=== PATIENT | female | born 1995 | race Asian ===

== ENCOUNTER 2016-12-12 06:52 | Day surgery (SDC) | payer OTHER ==
--- NOTE | 2016-12-04 15:12 | GHP ---
[f rep st] PREOP HISTORY AND PHYSICAL DATE OF ADMISSION: 12/12/2016 ADMITTING DIAGNOSIS: 1. Pelvic pain. 2. Dysmenorrhea. HISTORY OF PRESENT ILLNESS: The patient is a 21-year-old, 0, who presents with an unknown last menstrual period and a long history of pelvic pain and dysmenorrhea. Cycles are regular but heavy, and usually lasts for 7 days. She experiences severe cramping with her menses as well as bilateral lower pelvic pain intermittently. The pain is described as sharp, constant for 1 -2 days. Does not occur on a daily basis. Pain is localized with no radiation. She denies any exacerbating factors. Notes relief with medical marijuana. She denies any urinary or bowel complaints. The patient has tried Depo in the past for a year to see if it would help and she continued to have heavy bleeding and cramping. The patient then had Cara IUD placed secondary to bleeding and pain March 20, 2016. She still had bleeding regularly, but noticed a slight improvement in her cramping. The patient then had Nexplanon placed October 2016 to help with her symptoms. The patient had no pain for a week and then the pain started again. She still has the Cara IUD in place but would like it removed. The patient was told she has endometriosis and would like to have surgery done to see if her pain is caused by endometriosis. The patient does desire surgery at this time as well as IUD removal. PAST OB HISTORY: The patient is nulliparous. 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 Cycles are regular, every 28-30 days. She bleeds or 5-7 days. Cycles are very heavy and severe cramping. No previous Pap smear noted. Recent GC/chlamydia cultures are negative, October of 2016. PAST MEDICAL HISTORY: Chronic pelvic pain. PAST SURGICAL HISTORY: Unremarkable. MEDICATIONS: Include Cara and Nexplanon ALLERGIES: Amoxicillin and penicillin. FAMILY HISTORY: Mother with hypertension and thyroid disease. Maternal aunt with breast cancer, diagnosed in 40s. SOCIAL HISTORY: The patient is single. She is a student at . She denies alcohol, drugs, or illicit drug use. She does have a prescription for medical marijuana. REVIEW OF SYSTEMS: 10-point review of systems negative. Pertinent positives noted in HPI above. LABS: None. STUDIES: A pelvic ultrasound was done showing the IUD is visualized within the uterus in the proper position, bilateral ovaries appear normal. PHYSICAL EXAMINATION: VITAL SIGNS: On admission, vital signs are stable. Patient is afebrile. GENERAL: Well-nourished well-developed female, alert and oriented x3. No apparent distress. CARDIOVASCULAR: Regular rate and rhythm. LUNGS: Clear to auscultation bilaterally. ABDOMEN: Soft, nondistended, nontender. Active bowel sounds. PELVIC: Bimanual exam reveals normal-sized, nontender, mobile uterus and normal adnexa. IUD strings were felt. EXTREMITIES : Normal to inspection without calf tenderness or edema. ASSESSMENT: The patient is a 21-year-old, nulliparous, with a long history of pelvic pain and dysmenorrhea. PLAN: 1. We discussed surgery, diagnostic laparoscopy, its limitations, n.p.o. status , and postop recovery and expectations. 2. Surgical consents were signed. We discussed risks, benefits, alternatives, including, but not limited to, bleeding, infection, damage to surrounding organs. Patient understands all risks and wants to proceed with surgery at this time. 3. Antibiotics personal financial counselor to OR. 4. SCDs for DVT prophylaxis. /[id number]/MODL MTDD
[2016-12-12] MEDS ORDERED: CLINDAMYCIN 900 MG/DEXTROSE 50 ML IV ONE (07:26)
[2016-12-12] MEDS ORDERED: LR 1,000 ML IV SCH (07:26)
[2016-12-12] MEDS ORDERED: LR 1,000 ML IV ONE (07:28)
[2016-12-12] MEDS ORDERED: LIDOCAINE 1% 2 ML INJ ID PRN (07:28)
[2016-12-12] MEDS ORDERED: MIDAZOLAM 2 MG/2 ML VIAL IVP ONE (07:52)
--- NOTE | 2016-12-12 07:52 | PDANEPAE ---
ANE History of Present Illness pelvic pain ANE Past Medical History - Cardiovascular History Hx Hypertension: No Hx Arrhythmias: No Hx Chest Pain: No Hx Coronary Artery / Peripheral Vascular Disease: No Hx CHF / Valvular Disease: No Hx Palpitations: No - Pulmonary History Hx COPD: No Hx Asthma/Reactive Airway Disease: No Hx Recent Upper Respiratory Infection: No Hx Oxygen in Use at Home: No Hx Sleep Apnea: No Sleep Apnea Screening Result - Last Documented: Negative - Neurologic History Hx Cerebrovascular Accident: No Hx Seizures: No Hx Dementia: No - Endocrine History Hx Diabetes: No - Renal History Hx Renal Disorders: No - Liver History Hx Hepatic Disorders: No - Neurological & Psychiatric Hx Hx Neurological and Psychiatric Disorders: No - Cancer History Hx Cancer: No - Congenital Disorder History Hx Congenital Disorders: No - GI History Hx Gastrointestinal Disorders: No - Other Health History Other Health History: pelvic pain, painful menses. Uses medical marijuana.Retained IUD. Endometriosis. - Chronic Pain History Chronic Pain: Yes (pelvic) - Surgical History Prior Surgeries: wisdom teeth at oral surgeon's office. ANE Review of Systems Review of systems is: negative - Exercise capacity METS (RN): 4 METS ANE Patient History - Allergies Allergies/Adverse Reactions: amoxicillin Allergy (Verified 11/27/16 15:28) Other-Enter Comments Penicillins Allergy (Verified 11/27/16 15:28) Other-Enter Comments - Home Medications Home medications: home medication list seen and reviewed Home Medications: NK [No Known Home Meds] 12/06/15 [Last Taken Unknown] - NPO status NPO Since - Liquids (Date): 12/11/16 NPO Since - Liquids (Time): 23:00 NPO Since - Solids (Date): 12/11/16 NPO Since - Solids (Time): 22:00 - Anes Hx Anes Hx: post operative nausea, slow to awaken from anesthesia - Smoking Hx Smoking Status: Never smoked - Family Anes Hx Family Hx Anesthesia Complications: not aware ANE Labs/Vital Signs - Vital Signs Blood Pressure: 109/69 Heart Rate: 92 Respiratory Rate: 16 O2 Sat (%): 96 Height: 152.4 cm Weight: 45.359 kg ANE Physical Exam - Airway Neck exam: FROM Mallampati Score: Class 1 Mouth exam: normal dental/mouth exam - Pulmonary Pulmonary: no respiratory distress - Cardiovascular Cardiovascular: regular rate and rhythym - ASA Status ASA Status: I ANE Anesthesia Plan Anesthesia Plan: general endotracheal anesthesia
[2016-12-12] MEDS ORDERED: SCOPOLAMINE HYDROBROMIDE 1.5 MG PATCH TD ONE ×2 (07:53→08:04)
[2016-12-12] MEDS ORDERED: fentaNYL 100 MCG/2 ML INJ ONE ×3 (07:57→09:36)
[2016-12-12] MEDS ORDERED: PROPOFOL 200 MG/20 ML VIAL ONE (07:57)
[2016-12-12] MEDS ORDERED: ROCURONIUM 50 MG/5 ML VIAL ONE (07:58)
[2016-12-12] MEDS ORDERED: DEXAMETHASONE 4 MG/ML VIAL ONE (07:58)
[2016-12-12] MEDS ORDERED: SUGAMMADEX SODIUM 200 MG/2 ML VIAL IVP ONE (07:58)
[2016-12-12] MEDS ORDERED: ONDANSETRON 4 MG/2 ML VIAL ONE (07:58)
[2016-12-12] MEDS ORDERED: LIDOCAINE 2% 5 ML SDV ONE (07:58)
[2016-12-12] MEDS ORDERED: BUPIVACAINE/EPI 0.25% 30 ML SDV ONE (08:04)
[2016-12-12] MEDS ORDERED: SILVER NITRATE APPLICATOR 1 APPL TP ONE (08:05)
[2016-12-12] MEDS ORDERED: LIDOCAINE 2% JELLY 5 ML TUBE ONE (08:08)
--- NOTE | 2016-12-12 08:20 | PDHPUP ---
History & Physical Update H&P update statement: This history and physical update is based on an assessment of the patient which was completed after admission or registration (within 24 hours), but prior to the surgery/procedure. H&P update: H&P reviewed & patient examined, no change in patient's condition since H&P completed
[2016-12-12] MEDS ORDERED: ONDANSETRON 4 MG/2 ML VIAL IVP PRN (09:04)
[2016-12-12] MEDS ORDERED: OXYCODONE/APAP 5/325 TAB PO PRN (09:04)
[2016-12-12] MEDS ORDERED: HYDROmorphONE/DILAUDID 1 MG/ML SYR IVP PRN (09:04)
[2016-12-12] MEDS ORDERED: PROMETHAZINE HCL 25 MG/ML INJ IVP PRN (09:04)
[2016-12-12] MEDS ORDERED: ACETAMINOPHEN 500 MG TAB PO PRN (09:04)
[2016-12-12] MEDS ORDERED: fentaNYL 100 MCG/2 ML INJ IVP PRN (09:04)
[2016-12-12] MEDS ORDERED: NALOXONE HCL 0.4 MG/ML INJ IVP PRN (09:04)
--- NOTE | 2016-12-12 09:17 | POSTOPPROG ---
Post Op Note Date of Operation: 12/12/16 Surgeon: Brook Bueno [employer] Repairer: Eli Rosales Anesthesiologist: Nader Ruth Anesthesia: GET(General Endotracheal) Pre-op Diagnosis: Chronic pelvic pain; Dysmenorrhea Post-op Diagnosis: Chronic pelvic pain; Dysmenorrhea; RLQ adhesions Indication: 21 y/o G0 w/ history of pelvic pain and dysmenorrhea; wants IUD removed Procedure: Dx Laparoscopy with KIRK Findings: Grossly normal uterus, tubes, ovaries, upper abd; pelvic adhesions RLQ Inf/Abcess present in the surg proc area at time of surgery?: No Depth: Superfical (Skin SQ) EBL: Minimal (2cc) Total fluids administered: 700cc LR UO: 130 cc clear urine Complications: None
--- NOTE | 2016-12-12 09:20 | POSTANESTH ---
Post Anesthetic Evaluation Cardiovascular Status: Normal, Stable Respiratory Status: Normal, Stable Level of Consciousness/Mental Status: Can Participate in Eval Pain Control: Adequate, Prn Tx Ordered Nausea/Vomiting Control: Adequate, Prn Tx Ordered Complications Possibly Related to Anesthesia: None Noted
[2016-12-12] MEDS ORDERED: KETOROLAC 30 MG/1 ML SDV IVP ONE (09:25)
[2016-12-12] MEDS ORDERED: KETOROLAC 30 MG/1 ML SDV ONE (09:29)
[2016-12-12] MEDS ORDERED: HYDROCODONE/APAP 5/325 TAB ONE (09:36)
[2016-12-12] MEDS ORDERED: OXYCODONE/APAP 5/325 TAB ONE (09:41)
[2016-12-12 10:25] VITALS: RESP 15
[2016-12-12 11:01] VITALS: BP 121/79; PULSE 88; TEMP 97.7; O2SAT 97
--- NOTE | 2016-12-12 11:40 | GOP ---
[f rep st] OPERATIVE REPORT DATE OF OPERATION: 12/12/2016 SURGEON: Brook Bueno DO RESIDENT CARE COORDINATOR: lEi Rosales. ANESTHESIA: General endotracheal. ANESTHESIOLOGIST: Song Lee. PREOPERATIVE DIAGNOSIS: 1. Chronic pelvic pain. 2. Dysmenorrhea. POSTOPERATIVE DIAGNOSIS: 1. Chronic pelvic pain. 2. Dysmenorrhea. 3. Right lower quadrant adhesions. PROCEDURE PERFORMED: 1. Removal of intrauterine device. 2. Diagnostic laparoscopy. 3. Lysis of adhesions. FINDINGS: Grossly normal-appearing uterus, tubes, and ovaries bilaterally. There were adhesions no cathie to the right lower quadrant. Abdomen including appendix all grossly normal appearing. No endom etrial implants were visualized on ovaries, cul-de-sac, or the uterosacral ligaments. SPECIMENS: No specimen. ESTIMATED BLOOD LOSS: Less than 50 cc. INDICATIONS: Patient is a 21-year-old, nulliparous, who presents with a history of chronic pelvic p ain as well as dysmenorrhea. The patient also has the Cara IUD in place. This was given to see if she would have any relief with pain. Has had bleeding with IUD. So, therefore, Nexplanon was plac ed. She is wanting the IUD out. Does have a family history of endometriosis, and would like to kno w if she has endometriosis as the cause of her pain. Surgical consents were obtained. All risks, b enefits, alternatives were reviewed with the patient including, but not limited to, bleeding, infect ion, damage to surrounding organs. Patient understands all risks at this time and wants to proceed with surgery. DESCRIPTION OF PROCEDURE: The patient was taken to the operating room, where general anesthesia was obtained without difficulty. The patient was placed in a dorsal high lithotomy position, prepped a nd draped in normal sterile fashion. Sutherland catheter was placed at this time. An open-sided speculu m was placed in the vagina. A single-tooth tenaculum was placed on the anterior lip of the cervix. IUD strings were visualized. These were grasped with a Rabia clamp and removed intact without diff iculty. Then an acorn uterine manipulator was placed up inside the uterus and used as a means to ma nipulate the uterus. We then turned our attention to the patient's abdomen. Infraumbilical area was injected with 0.25% Marcaine with epi. An infraumbilical 5 mm skin incision was made with a scalpel. The Veress needle was inserted very carefully while tenting up the abdominal wall. Aspiration was negative. Abdomen was then insufflated with carbon dioxide. Pneumoperitoneum was obtained. After adequate insufflat ion, the Veress needle was removed. A 5 mm trocar was introduced through the umbilical incision in the abdominal cavity directly with the laparoscope. The pelvis was adequately visualized at this ti me. Another 5 mm skin incision was made in the left lower quadrant. An atraumatic trocar was place d. Pelvic findings were noted above. At this time, we did visualize the bilateral ovaries, the cul -de-sac, as well as the uterosacral ligaments. No endometrial implants were noted. We did look up in the upper abdomen. All normal appearing. We did note, however, some adhesions of the right lowe r quadrant. These were taken down using hot scissors. Hemostasis was visualized. All instruments were then removed from the abdomen. Gas was allowed to escape from the abdomen. The incisions were then closed with glue. The acorn manipulator was then removed from the uterus. Hemostasis was not ed. The patient tolerated the procedure well. No complications. All sponge and lap counts were co rrect x2. The patient was then taken out of dorsal lithotomy position, awakened, and taken to [facility] cesar room in stable condition. IV FLUIDS: 700 cc of LR. URINE OUTPUT: 130 cc of clear urine. /[id number]/MODL
[2016-12-13] MEDS ORDERED: PATCH REMOVAL 1 EA PATCH TD ONE (07:53)
== END 2016-12-12 11:15 | disposition home or self-care (01) ==
LOC: FSGY 06:52
PROVIDERS: ATTEND Obstetrics & Gynecology
PROC: 0UPD7HZ Removal of Contraceptive Device from Uterus and Cervix, Via Natural or Artificial Opening (ICD-10-PCS; principal; 2016-12-12 08:15)
PROC: 0UBF4ZZ Excision of Cul-de-sac, Percutaneous Endoscopic Approach (ICD-10-PCS; principal; 2016-12-12 08:15)
DX: R10.2 Pelvic and perineal pain (principal); N94.6 Dysmenorrhea, unspecified; N73.6 Female pelvic peritoneal adhesions (postinfective); Z30.432 Encounter for removal of intrauterine contraceptive device; Z88.0 Allergy status to penicillin
CPT/HCPCS: J1100; J1885; J2250; J2405; J2704; J3010

== ENCOUNTER 2016-12-16 09:37 | Observation (INO) | payer OTHER ==
[2016-12-16] MEDS ORDERED: NS 1,000 ML IV ONE (10:02)
[2016-12-16] MEDS ORDERED: KETOROLAC 30 MG/1 ML SDV IVP ONE (10:02)
[2016-12-16] MEDS ORDERED: HYDROmorphONE/DILAUDID 1 MG/ML SYR IVP ONE ×2 (10:02→12:21)
[2016-12-16] MEDS ORDERED: ONDANSETRON 4 MG/2 ML VIAL IVP ONE (10:02)
--- NOTE | 2016-12-16 10:06 | EDPHY ---
H & P Stated Complaint: laporoscopy wed/taking percocet/prob with incision and nausea Time Seen by Provider: 12/16/16 09:53 HPI/ROS: CHIEF COMPLAINT: Nausea vomiting abdominal pain HISTORY OF PRESENT ILLNESS: 21-year-old female postop day 4 post removal of IUD , diagnostic laparoscopy, lysis of adhesions secondary to history of chronic pelvic pain and dysmenorrhea, by Dr. Brook Bueno, complaining of abdominal pain , nausea, vomiting, bleeding from her umbilical incision site since last evening. been unable to keep oral intake down. She has had 1 bowel movement postoperatively. Complaint of increased urinary frequency as well as continued vaginal bleeding. No melena or hematochezia. No chest pain. No dyspnea. No coughing. No dysuria. REVIEW OF SYSTEMS: A ten point review of systems was performed and is negative with the exception of the items mentioned in the HPI PAST MEDICAL & SURGICAL HISTORY: Postop day 4 post removal IUD diagnostic laparoscopy, lysis of adhesions SOCIAL HISTORY:nonsmoker PHYSICAL EXAM (Prior to examination, patient consented to physical exam, hands were washed and my usual and customary physical exam procedures followed) 1) GENERAL: Well-developed, well-nourished, alert and oriented. Appears uncomfortable, crying 2) HEAD: Normocephalic, atraumatic 3) HEENT: Pupils equal, round, reactive to light bilaterally. Sclera anicteric. Nasopharynx, oropharynx, clear, no lesions. Dry mucous membranes 4) NECK: Full range of motion, no meningeal signs. 5) LUNGS: Clear auscultation bilaterally, no wheezes, no rhonchi, no retractions. 6) HEART: Regular rate and rhythm, no murmur, no heave, no gallop. 7) ABDOMEN: guarding abdomen, diffusely exquisitely tender to palpation . Umbilical incision has dried blood. No active bleeding. Other incision sites granulating appropriately., 8) MUSCULOSKELETAL: Moving all extremities, no focal areas of tenderness, no obvious trauma. No peripheral edema or discoloration. 9) BACK: No CVA tenderness, no midline vertebral tenderness, no fluctuance, no step-off, no obvious trauma, no visual or palpable abnormality. 10) SKIN: No rash, no petechiae. [11) Psychiatric: Patient is oriented X 3, there is no agitation. DIFFERENTIAL DIAGNOSIS: in no particular include but limited to postoperative pain, intra-abdominal abscess, constipation, ileus - Personal History LMP (Females 10-55): Now Current Tetanus/Diphtheria Vaccine: Yes - Medical/Surgical History Hx Asthma: No Hx Chronic Respiratory Disease: No Hx Diabetes: No Hx Cardiac Disease: No Hx Renal Disease: No Hx Cirrhosis: No Hx Alcoholism: No Hx HIV/AIDS: No Hx Splenectomy or Spleen Trauma: No Other PMH: endometriosis - Social History Smoking Status: Never smoked Constitutional: Initial Vital Signs Temperature (C) 36.8 C 12/16/16 09:47 Heart Rate 83 12/16/16 09:47 Respiratory Rate 18 12/16/16 09:47 Blood Pressure 94/53 L 12/16/16 09:47 O2 Sat (%) 97 12/16/16 09:47 O2 Delivery Mode Room Air Allergies/Adverse Reactions: amoxicillin Allergy (Verified 12/16/16 09:46) Other-Enter Comments Penicillins Allergy (Verified 12/16/16 09:46) Other-Enter Comments Home Medications: Medication Instructions Recorded Etonogestrel [Nexplanon] 68 mg SQ ONCE 12/16/16 Medical Decision Making - Diagnostics Imaging Results: Imaging Impressions Abdomen CT 12/16/16 10:49 Impression: Free intraperitoneal air which could be persistent after laparoscopic surgery or bowel perforation cannot be excluded. There is also significant air in the left anterior abdominal wall and subcutaneous fat. Mild stranding and air are seen at the umbilicus. No evidence for an abnormal fluid collection to indicate abscess. Results called and discussed with Mann Haley on 12/16/2016 at 12:13 p.m. Imaging: Discussed imaging studies w/ call center team leader Radiologist ED Course/Re-evaluation: 12:20 p.m.: Re-evaluation, discussed the CT imaging results. Patient remains crying, complaining of pain. She has exquisite amount of abdominal pain to even light palpation. There is noted discharge from the umbilicus/. I have attempted to evaluate this area however she is exquisitely tender will not allow me to examine it. 12:35 p.m.: Phone consultation with Dr. Brook Bueno who recommends I contact Dr. Eli Rosales, on-call OBGYN for admission. 1245 pm: Phone consultation with Dr Rosales who will admit patient to Labor and delivery for pain control in re-evaluation. Patient also seen and examined by Dr. Castillo in ER - Data Points Laboratory Results: Laboratory Results 12/16/16 10:10 12/16/16 10:10 12/16/16 12/16/16 12/16/16 11:05 10:10 10:10 WBC RBC Hgb Hct MCV MCH MCHC RDW Plt Count MPV Neut % (Auto) Lymph % (Auto) [place] % (Auto) Eos % (Auto) Baso % (Auto) Nucleat RBC Rel Count Absolute Neuts (auto) Absolute Lymphs (auto) Absolute Monos (auto) Absolute Eos (auto) Absolute Basos (auto) Absolute Nucleated RBC Immature Gran % Immature Gran # Sodium 140 mEq/L mEq/L (134-144) Potassium 3.7 mEq/L mEq/L (3.5-5.2) Chloride 107 mEq/L mEq/L (97-110) Carbon Dioxide 21 mEq/l L mEq/l (22-31) Anion Gap 12 mEq/L mEq/L (8-16) BUN 12 mg/dL mg/dL (7-23) Creatinine 0.7 mg/dL mg/dL (0.6-1.0) Estimated GFR > 60 Glucose 86 mg/dL mg/dL (70-100) Calcium 9.1 mg/dL mg/dL (8.5-10.4) Total Bilirubin 0.9 mg/dL mg/dL (0.1-1.4) Conjugated Bilirubin 0.3 mg/dL mg/dL (0.0-0.5) Unconjugated Bilirubin 0.6 mg/dL mg/dL (0.0-1.1) AST 25 IU/L IU/L (14-46) ALT 30 IU/L IU/L (9-52) Alkaline Phosphatase 45 IU/L IU/L (38-126) Total Protein 6.7 g/dL g/dL (6.3-8.2) Albumin 4.0 g/dL g/dL (3.5-5.0) Lipase 39.0 IU/L IU/L (23-300) Beta HCG, Qual NEGATIVE Urine Color YELLOW Urine Appearance MODERATELY TURBID Urine pH 5.0 (5.0-7.5) Ur Specific [place] 1.023 (1.002-1.030) Urine Protein 2+ H (NEGATIVE) Urine Ketones 1+ H (NEGATIVE) Urine Blood 3+ H (NEGATIVE) Urine Nitrate NEGATIVE (NEGATIVE) Urine Bilirubin NEGATIVE (NEGATIVE) Urine Urobilinogen NEGATIVE EU EU (0.2-1.0) Ur Leukocyte Esterase TRACE H (NEGATIVE) Urine RBC 50-182 /hpf H /hpf (0-3) Urine WBC 5-10 /hpf H /hpf (0-3) Ur Epithelial Cells 3+ /lpf H /lpf (NONE-1+) Urine Mucus 2+ /lpf H /lpf (NONE-1+) Urine Glucose NEGATIVE (NEGATIVE) 12/16/16 10:10 WBC 7.61 10^3/uL 10^3/uL (3.80-9.50) RBC 4.87 10^6/uL 10^6/uL (4.18-5.33) Hgb 14.2 g/dL g/dL (12.6-16.3) Hct 40.7 % % (38.0-47.0) MCV 83.6 fL fL (81.5-99.8) MCH 29.2 pg pg (27.9-34.1) MCHC 34.9 g/dL g/dL (32.4-36.7) RDW 12.6 % % (11.5-15.2) Plt Count 223 10^3/uL 10^3/uL (150-400) MPV 9.3 fL fL (8.7-11.7) Neut % (Auto) 65.8 % % (39.3-74.2) Lymph % (Auto) 28.6 % % (15.0-45.0) [place] % (Auto) 4.5 % % (4.5-13.0) Eos % (Auto) 0.7 % % (0.6-7.6) Baso % (Auto) 0.3 % % (0.3-1.7) Nucleat RBC Rel Count 0.0 % % (0.0-0.2) Absolute Neuts (auto) 5.01 10^3/uL 10^3/uL (1.70-6.50) Absolute Lymphs (auto) 2.18 10^3/uL 10^3/uL (1.00-3.00) Absolute Monos (auto) 0.34 10^3/uL 10^3/uL (0.30-0.80) Absolute Eos (auto) 0.05 10^3/uL 10^3/uL (0.03-0.40) Absolute Basos (auto) 0.02 10^3/uL 10^3/uL (0.02-0.10) Absolute Nucleated RBC 0.00 10^3/uL 10^3/uL (0-0.01) Immature Gran % 0.1 % % (0.0-1.1) Immature Gran # 0.01 10^3/uL 10^3/uL (0.00-0.10) Sodium Potassium Chloride Carbon Dioxide Anion Gap BUN Creatinine Estimated GFR Glucose Calcium Total Bilirubin Conjugated Bilirubin Unconjugated Bilirubin AST ALT Alkaline Phosphatase Total Protein Albumin Lipase Beta HCG, Qual Urine Color Urine Appearance Urine pH Ur Specific [place] Urine Protein Urine Ketones Urine Blood Urine Nitrate Urine Bilirubin Urine Urobilinogen Ur Leukocyte Esterase Urine RBC Urine WBC Ur Epithelial Cells Urine Mucus Urine Glucose Medications Given: Discontinued Medications Hydromorphone HCl (Dilaudid) 0.5 mg IVP EDNOW ONE Stop: 12/16/16 10:03 Last Admin: 12/16/16 10:24 Dose: 0.5 mg Hydromorphone HCl (Dilaudid) 1 mg IVP EDNOW ONE Stop: 12/16/16 12:22 Last Admin: 12/16/16 12:33 Dose: 1 mg Sodium Chloride (Ns) 1,000 mls @ 0 mls/hr IV ONCE ONE PRN Reason: Wide Open Stop: 12/16/16 10:03 Last Admin: 12/16/16 10:22 Dose: 1,000 mls Ketorolac Tromethamine (Toradol) 30 mg IVP EDNOW ONE Stop: 12/16/16 10:03 Last Admin: 12/16/16 10:23 Dose: 30 mg Ondansetron HCl (Zofran) 4 mg IVP EDNOW ONE Stop: 12/16/16 10:03 Last Admin: 12/16/16 10:22 Dose: 4 mg Departure - Departure Disposition: [facility] Acute Clinical Impression: Abdominal pain Qualifiers: Abdominal location: generalized Qualified Code(s): R10.84 - Generalized abdominal pain Condition: Fair
[2016-12-16 10:18] LABS: % IMMATURE GRANULYOCYTES 0.1 % (0.0-1.1); ABSOLUTE IMMATURE GRANULOCYTES 0.01 10^3/uL (0.00-0.10); ADD DIFF? NO; ADD MORPH? NO; ADD SCAN? NO; ATYPICAL LYMPHOCYTE FLAG 0 (0-99); FRAGMENT RBC FLAG 0 (0-99); HEMATOCRIT 40.7 % (38.0-47.0); HEMOGLOBIN 14.2 g/dL (12.6-16.3); LEFT SHIFT FLG 0 (0-99); LIPEMIA HEMOLYSIS FLAG 90 (0-99); MEAN CELL HEMOGLOBIN 29.2 pg (27.9-34.1); MEAN CELL HEMOGLOBIN CONCENTR. 34.9 g/dL (32.4-36.7); MEAN CELL VOLUME 83.6 fL (81.5-99.8); MEAN PLATELET VOLUME 9.3 fL (8.7-11.7); PLATELET CLUMPS FLAG 0 (0-99); PLATELET COUNT 223 10^3/uL (150-400); RED BLOOD CELL COUNT 4.87 10^6/uL (4.18-5.33); RED CELL DISTRIBUTION WIDTH 12.6 % (11.5-15.2)
[2016-12-16 10:40] LABS: ALANINE AMINOTRANSFERASE 30 IU/L (9-52); ALKALINE PHOSPHATASE 45 IU/L (38-126); ANION GAP 12 mEq/L (8-16); ASPARTATE AMINOTRANSFERASE 25 IU/L (14-46); BILIRUBIN,TOTAL 0.9 mg/dL (0.1-1.4); BILIRUBIN-CONJUGATED 0.3 mg/dL (0.0-0.5); BILIRUBIN-UNCONJUGATED 0.6 mg/dL (0.0-1.1); CALCIUM 9.1 mg/dL (8.5-10.4); CARBON DIOXIDE 21 mEq/l (22-31); CHLORIDE 107 mEq/L (97-110); CREATININE 0.7 mg/dL (0.6-1.0); GLOMERULAR FILTRATION RATE > 60; GLUCOSE 86 mg/dL (70-100); POTASSIUM 3.7 mEq/L (3.5-5.2); SODIUM 140 mEq/L (134-144); TOTAL PROTEIN 6.7 g/dL (6.3-8.2)
[2016-12-16] MEDS ORDERED: IOPAMIDOL (ISOVUE-300) 100 ML BTL ONE (10:57)
[2016-12-16 11:21] LABS: COLOR YELLOW; LEUKOCYTE ESTERASE,URINE TRACE (NEGATIVE); NITRITE,URINE NEGATIVE (NEGATIVE)
[2016-12-16 11:23] LABS: MUCUS 2+ /lpf (NONE-1+); RBC,URINE 50-182 /hpf (0-3)
[2016-12-16] MEDS ORDERED: LORazepam 2 MG/ML INJ IVP ONE (12:50)
[2016-12-16] MEDS ORDERED: KETOROLAC 30 MG/1 ML SDV IVP PRN (14:27)
[2016-12-16] MEDS ORDERED: BISACODYL 10 MG SUPP PR PRN (14:28)
[2016-12-16] MEDS ORDERED: POLYETHYLENE GLYCOL 3350 17 GM PKT PO PRN (14:28)
[2016-12-16] MEDS ORDERED: LACTULOSE 20 GM/30 ML UDCUP PO PRN (14:28)
[2016-12-16] MEDS ORDERED: MAGNESIUM HYDROXIDE 30 ML UDCUP PO PRN (14:28)
[2016-12-16] MEDS ORDERED: ONDANSETRON 4 MG/2 ML VIAL IVP PRN (14:38)
[2016-12-16 15:46] VITALS: RESP 16
--- NOTE | 2016-12-16 16:08 | GHP ---
[f rep st] HISTORY AND PHYSICAL DATE OF ADMISSION: 12/16/2016 ADMITTING DIAGNOSES: Postoperative day 4 status post a diagnostic laparoscopy and intrauterine device removal with pain and nausea and vomiting. HISTORY OF PRESENT ILLNESS: The patient is a 21-year-old, 0, who presented for longstanding history of pelvic pain and dysmenorrhea. She underwent a diagnostic laparoscopy on 12/12/2016 and removal of a Cara IUD because of the above. She has a Nexplanon, which she will use for contraception , and she feels that her Cara IUD is contributing to dysmenorrhea and pelvic pain. This was elective. The IUD was removed without difficulty. During the diagnostic laparoscopy revealed normal anatomy. She had a normal uterus, normal tubes, normal ovaries, normal cul-de-sac, and anterior flap. She had small areas of intra abdominal adhesions on the right lower quadrant. These were removed with the LigaSure without difficulty, and there was no further bleeding. So her diagnostic laparoscopy was negative for any significant pathology, specifically endometriosis. The patient initially was reporting difficulties with pain control postop, requiring 2 Percocets every 4 hours and ibuprofen for pain. She was concerned about the appearance of her infraumbilical port site, reported that it felt swollen and "didn't look good." On the morning of the , she reported an episode of heavy bleeding bright red from her umbilical port site and an episode of extreme anxiety and nausea and vomiting. She presented to the emergency department, tearful, complaining of extreme pain mostly in her infraumbilical skin port site as well as pelvic pain and vaginal bleeding. She had labs today that showed normal CBC, normal white count of 7.61, hemoglobin 14.2, platelets of 223. Chemistries were normal. Beta HCG was negative. UA showed blood was significant for blood and trace leuk esterase. She was given multiple doses of IV narcotics and IV Zofran and was unable to have pain control on oral pills so she will be kept for observation. The patient has had significant constipation since surgery. Has had only 1 small bowel movement which was not normal. PAST OBSTETRICAL HISTORY: The patient has no past obstetrical history. She is nulliparous. PAST GYNECOLOGICAL HISTORY: She has age of menarche at age 13. Cycles are regular every 28-30 days. Bleeds 5-7 days. She reports them to be very heavy with severe cramping. She has never had a Pap smear. Gonorrhea and chlamydia cultures were negative as of October of 2016, and she has a Nexplanon in place and had a Cara IUD, which was removed. PAST MEDICAL HISTORY: Only significant for chronic pelvic pain. PAST SURGICAL HISTORY: Only as above. MEDICATIONS: Nexplanon. ALLERGIES: She is allergic to amoxicillin and penicillin. FAMILY HISTORY: Noncontributory. SOCIAL HISTORY: She is single. She has a committed boyfriend. She is a student at . She denies tobacco, alcohol, or illicit drug use. She does have a prescription for medical marijuana. REVIEW OF SYSTEMS: Pertinent for episodes of nausea, vomiting, abdominal pain, bleeding from her infraumbilical skin incision and reported chills during that episode. No other symptoms and negative review of systems except for constipation. LABORATORY DATA: As above. She had an abdominal CT which was only significant for small amounts of intraperitoneal air which is consistent with the recent laparoscopy. There was no evidence of abscess or hematoma, and her appendix was visualized and found to be normal. PHYSICAL EXAMINATION: VITAL SIGNS: Today, she is afebrile. Vital signs are stable. Temperature is 36.7. Blood pressure is 104/67. Pulse is 94. She is 99 % on room air. GENERAL: She is a well-developed, female tearful in mild distress. LUNGS: Clear to auscultation bilaterally. HEART: Regular rate and rhythm with no murmur. ABDOMEN: Soft, nondistended, normal bowel sounds. She has a small evidence of dried blood at her infraumbilical skin incision and has a palpable small hematoma at the level of the skin which is tender but no rebound , no guarding. PELVIC: Deferred. ASSESSMENT/PLAN: 21-year-old, G0, postop day 4 from a diagnostic laparoscopy for chronic pelvic pain. I feel that patient is very anxious regarding her incision and her current pain, but I do not feel like this is any evidence of surgical complications or anything serious. I cleaned her incision and placed a 4 x 4 and a Tegaderm for hemostasis. We are giving her an ice pack. We will do Toradol and bowel protocol, but I am going to refrain from narcotics, because I feel that that is contributing to her constipation which could contribute to her nausea, vomiting, and abdominal pain. My hope is to discharge her home later this afternoon. /[id number]/MODL MTDD
[2016-12-16] MEDS ORDERED: LR 1,000 ML IV SCH (19:00)
[2016-12-16] MEDS: SIMETHICONE 80 MG TAB CHEW PO SCH ×2 (19:26→19:42)
[2016-12-16 19:38] VITALS: O2SAT 96
[2016-12-16] MEDS: SENNOSIDES/DOCUSATE SODIUM TAB PO SCH (19:41)
[2016-12-16] MEDS: PROMETHAZINE HCL 25 MG in LR 1,000 ML IV SCH (22:34)
[2016-12-16] MEDS: OXYCODONE/APAP 5/325 TAB PO PRN (22:36)
[2016-12-17] MEDS: PROMETHAZINE HCL 25 MG in LR 1,000 ML IV SCH (06:09)
[2016-12-17] MEDS: OXYCODONE/APAP 5/325 TAB PO PRN (06:12)
[2016-12-17 06:40] LABS: ALANINE AMINOTRANSFERASE 27 IU/L (9-52); ALBUMIN 3.2 g/dL (3.5-5.0); ALKALINE PHOSPHATASE 38 IU/L (38-126); ANION GAP 9 mEq/L (8-16); ASPARTATE AMINOTRANSFERASE 21 IU/L (14-46); BILIRUBIN,TOTAL 1.1 mg/dL (0.1-1.4); CARBON DIOXIDE 23 mEq/l (22-31); CHLORIDE 104 mEq/L (97-110); CREATININE 0.7 mg/dL (0.6-1.0); GLOMERULAR FILTRATION RATE > 60; GLUCOSE 70 mg/dL (70-100); POTASSIUM 3.9 mEq/L (3.5-5.2); SODIUM 136 mEq/L (134-144); TOTAL PROTEIN 5.9 g/dL (6.3-8.2)
[2016-12-17 07:15] LABS: % IMMATURE GRANULYOCYTES 0.2 % (0.0-1.1); ABSOLUTE IMMATURE GRANULOCYTES 0.01 10^3/uL (0.00-0.10); ADD DIFF? NO; ADD MORPH? NO; ADD SCAN? NO; ATYPICAL LYMPHOCYTE FLAG 0 (0-99); FRAGMENT RBC FLAG 0 (0-99); HEMATOCRIT 37.1 % (38.0-47.0); HEMOGLOBIN 13.2 g/dL (12.6-16.3); LEFT SHIFT FLG 0 (0-99); LIPEMIA HEMOLYSIS FLAG 90 (0-99); MEAN CELL HEMOGLOBIN 29.5 pg (27.9-34.1); MEAN CELL HEMOGLOBIN CONCENTR. 35.6 g/dL (32.4-36.7); MEAN CELL VOLUME 82.8 fL (81.5-99.8); MEAN PLATELET VOLUME 9.5 fL (8.7-11.7); PLATELET CLUMPS FLAG 0 (0-99); PLATELET COUNT 218 10^3/uL (150-400); RED BLOOD CELL COUNT 4.48 10^6/uL (4.18-5.33); RED CELL DISTRIBUTION WIDTH 12.6 % (11.5-15.2)
[2016-12-17] MEDS: SENNOSIDES/DOCUSATE SODIUM TAB PO SCH (09:28)
[2016-12-17] MEDS: SIMETHICONE 80 MG TAB CHEW PO SCH (09:28)
[2016-12-17 09:32] VITALS: BP 112/64; PULSE 85
[2016-12-17 11:13] VITALS: TEMP 99.1
== END 2016-12-17 11:25 | disposition home or self-care (01) ==
LOC: FLD 14:08
PROVIDERS: ADMIT Obstetrics & Gynecology; ATTEND Obstetrics & Gynecology
DX: R10.2 Pelvic and perineal pain (principal); R11.2 Nausea with vomiting, unspecified; L76.22 Postprocedural hemorrhage of skin and subcutaneous tissue following other procedure; Z98.890 Other specified postprocedural states
CPT/HCPCS: 74177; G0378; 96374; J1170; J1885; J2060; J2405; J2550; Q9967

== ENCOUNTER 2017-10-02 05:27 | Emergency (ER) | payer OTHER ==
[2017-10-02 05:55] LABS: PLATELET COUNT 221 10^3/uL (150-400)
[2017-10-02] MEDS ORDERED: KETOROLAC 15 MG/1 ML SDV IVP ONE (06:05)
[2017-10-02] MEDS ORDERED: ONDANSETRON 4 MG/2 ML VIAL IVP ONE (06:05)
[2017-10-02] MEDS ORDERED: NS 1,000 ML IV ONE (06:05)
[2017-10-02] MEDS ORDERED: HYDROmorphONE/DILAUDID 2 MG/ML INJ IVP ONE (06:05)
--- NOTE | 2017-10-02 06:08 | EDPHY ---
H & P Stated Complaint: N/D, generalized abd pain x3 days Time Seen by Provider: 10/02/17 05:39 HPI/ROS: HPI The patient presents with abdominal pain which has been present for the last 2 days and started suddenly while she was sleeping. The pain has been for the most part constant, is diffuse, and feels as if someone has punched her in the stomach. She has had lack of appetite, nausea with this, however has not had any vomiting. She has had about 2 loose stools a day with this. She tried taking a dose of Advil, however this did not help her symptoms. She does have a history of endometriosis, last had symptoms about 1.5 years ago. Her symptoms have resolved since being on the Nexplanon. She does not have any vaginal bleeding since she has been on this. She denies any dysuria or hematuria.. REVIEW OF SYSTEMS Constitutional: No fever, no chills. Eyes: No discharge. ENT: No sore throat. Cardiovascular: No chest pain, no palpitations. Respiratory: No cough, no shortness of breath. Gastrointestinal: Positive for abdominal pain Genitourinary: No hematuria. Musculoskeletal: No back pain. Skin: No rashes. Neurological: No headache. PMHx: History of endometriosis Soc Hx: Here with her partner PHYSICAL General Appearance: Alert, tearful and uncomfortable appearing Eyes: Pupils equal and round no pallor or injection ENT, Mouth: Mucous membranes moist Respiratory: There are no retractions, lungs are clear to auscultation Cardiovascular: Regular rate and rhythm Gastrointestinal: Abdomen is soft and mildly diffusely tender in all quadrants Neurological: A&O, moves all extremities Skin: Warm and dry, no rashes Musculoskeletal: Neck is supple non tender Extremities: symmetrical, full range of motion Psychiatric: Patient is oriented X 3, there is no agitation Source: Patient Exam Limitations: No limitations - Personal History LMP (Females 10-55): Extended Cycle BCP/Inj Current Tetanus/Diphtheria Vaccine: Unsure - Medical/Surgical History Hx Asthma: No Hx Chronic Respiratory Disease: No Hx Diabetes: No Hx Cardiac Disease: No Hx Renal Disease: No Hx Cirrhosis: No Hx Alcoholism: No Hx HIV/AIDS: No Hx Splenectomy or Spleen Trauma: No Other PMH: endometriosis, Laproscopic surgery 12/12/2016, wisdom teeth age 18 - Social History Smoking Status: Never smoked Constitutional: Initial Vital Signs Temperature (C) 36.8 C 10/02/17 05:28 Heart Rate 117 H 10/02/17 05:28 Respiratory Rate 18 10/02/17 05:28 Blood Pressure 95/59 L 10/02/17 05:28 O2 Sat (%) 97 10/02/17 05:28 O2 Delivery Mode Room Air Allergies/Adverse Reactions: amoxicillin Allergy (Verified 10/02/17 05:31) Other-Enter Comments Penicillins Allergy (Verified 10/02/17 05:31) Other-Enter Comments Home Medications: Medication Instructions Recorded Etonogestrel [Nexplanon] 68 mg SQ ONCE 12/16/16 Medical Decision Making Differential Diagnosis: This is a 22-year-old female who presents from home with abdominal pain, nausea , diarrhea for the last 2 days. Prior history of endometriosis, though symptoms well controlled now that she is on hormone therapy. On exam, she is slightly tachycardic, she has diffuse abdominal tenderness without any peritoneal signs. Differential diagnosis includes gastritis, gastroenteritis, appendicitis, endometriosis. In the emergency department, IV line was established. She was given medication for pain and IV fluids. Labs were checked and were unremarkable. I reassessed her and her pain had improved significantly. She had no further tenderness on exam. I suspect her pain is from endometriosis. I have given her return precautions for appendicitis. I have recommended that she follow up with her outpatient mva still operator Dr. Bueno. - Data Points Laboratory Results: Laboratory Results 10/02/17 05:45 10/02/17 05:45 10/02/17 10/02/17 10/02/17 05:45 05:45 05:45 WBC RBC Hgb Hct MCV MCH MCHC RDW Plt Count MPV Neut % (Auto) Lymph % (Auto) [place] % (Auto) Eos % (Auto) Baso % (Auto) Nucleat RBC Rel Count Absolute Neuts (auto) Absolute Lymphs (auto) Absolute Monos (auto) Absolute Eos (auto) Absolute Basos (auto) Absolute Nucleated RBC Immature Gran % Immature Gran # Sodium 139 mEq/L mEq/L (135-145) Potassium 3.8 mEq/L mEq/L (3.3-5.0) Chloride 107 mEq/L mEq/L (97-110) Carbon Dioxide 21 mEq/l L mEq/l (22-31) Anion Gap 11 mEq/L mEq/L (8-16) BUN 8 mg/dL mg/dL (7-23) Creatinine 0.6 mg/dL mg/dL (0.6-1.0) Estimated GFR > 60 Glucose 106 mg/dL H mg/dL (70-100) Calcium 9.0 mg/dL mg/dL (8.5-10.4) Total Bilirubin 0.5 mg/dL mg/dL (0.1-1.4) Conjugated Bilirubin 0.3 mg/dL mg/dL (0.0-0.5) Unconjugated Bilirubin 0.2 mg/dL mg/dL (0.0-1.1) AST 34 IU/L IU/L (14-46) ALT 24 IU/L IU/L (9-52) Alkaline Phosphatase 57 IU/L IU/L (38-126) Total Protein 7.3 g/dL g/dL (6.3-8.2) Albumin 4.2 g/dL g/dL (3.5-5.0) Lipase 44 IU/L IU/L (23-300) Beta HCG, Qual NEGATIVE 10/02/17 05:45 WBC 4.19 10^3/uL 10^3/uL (3.80-9.50) RBC 5.48 10^6/uL H 10^6/uL (4.18-5.33) Hgb 15.5 g/dL g/dL (12.6-16.3) Hct 43.8 % % (38.0-47.0) MCV 79.9 fL L fL (81.5-99.8) MCH 28.3 pg pg (27.9-34.1) MCHC 35.4 g/dL g/dL (32.4-36.7) RDW 12.7 % % (11.5-15.2) Plt Count 221 10^3/uL 10^3/uL (150-400) MPV 8.8 fL fL (8.7-11.7) Neut % (Auto) 53.8 % % (39.3-74.2) Lymph % (Auto) 35.6 % % (15.0-45.0) Johnston % (Auto) 9.5 % % (4.5-13.0) Eos % (Auto) 0.2 % L % (0.6-7.6) Baso % (Auto) 0.7 % % (0.3-1.7) Nucleat RBC Rel Count 0.0 % % (0.0-0.2) Absolute Neuts (auto) 2.25 10^3/uL 10^3/uL (1.70-6.50) Absolute Lymphs (auto) 1.49 10^3/uL 10^3/uL (1.00-3.00) Absolute Monos (auto) 0.40 10^3/uL 10^3/uL (0.30-0.80) Absolute Eos (auto) 0.01 10^3/uL L 10^3/uL (0.03-0.40) Absolute Basos (auto) 0.03 10^3/uL 10^3/uL (0.02-0.10) Absolute Nucleated RBC 0.00 10^3/uL 10^3/uL (0-0.01) Immature Gran % 0.2 % % (0.0-1.1) Immature Gran # 0.01 10^3/uL 10^3/uL (0.00-0.10) Sodium Potassium Chloride Carbon Dioxide Anion Gap BUN Creatinine Estimated GFR Glucose Calcium Total Bilirubin Conjugated Bilirubin Unconjugated Bilirubin AST ALT Alkaline Phosphatase Total Protein Albumin Lipase Beta HCG, Qual Medications Given: Discontinued Medications Hydromorphone HCl (Dilaudid) 0.5 mg IVP EDNOW ONE Stop: 10/02/17 06:06 Last Admin: 10/02/17 06:21 Dose: 0.5 mg Sodium Chloride (Ns) 1,000 mls @ 0 mls/hr IV EDNOW ONE; Wide Open PRN Reason: Protocol Stop: 10/02/17 06:06 Last Admin: 10/02/17 06:21 Dose: 1,000 mls Ketorolac Tromethamine (Toradol) 15 mg IVP EDNOW ONE Stop: 10/02/17 06:06 Last Admin: 10/02/17 06:21 Dose: 15 mg Ondansetron HCl (Zofran) 4 mg IVP EDNOW ONE Stop: 10/02/17 06:06 Last Admin: 10/02/17 06:21 Dose: 4 mg Departure - Departure Disposition: Home, Routine, Self-Care Clinical Impression: Abdominal pain Qualifiers: Abdominal location: generalized Qualified Code(s): R10.84 - Generalized abdominal pain Condition: Good Instructions: Endometriosis (ED) Additional Instructions: I recommend you follow up with your OBGYN in the next few days. Return to the emergency department if your worse in any way. Referrals: [facility] [Other] - As per Instructions Brook Bueno DO [Doctor of Osteopathy] - As per Instructions
[2017-10-02] MEDS ORDERED: HYDROmorphONE/DILAUDID 1 MG/ML INJ ONE (06:19)
[2017-10-02 07:23] VITALS: BP 90/64
[2017-10-02] MEDS ORDERED: HYDROCOD/APAP 5/325 PREPACK#6 BTL TAKEHOME ONE (07:28)
[2017-10-02] MEDS ORDERED: ONDANSETRON 4MG PREPACK#2 BTL TAKEHOME ONE (07:28)
== END 2017-10-02 07:51 | disposition home or self-care (01) ==
DX: R10.84 Generalized abdominal pain (principal); E86.9 Volume depletion, unspecified
CPT/HCPCS: 96374; J1170; J1885; J2405

== ENCOUNTER 2017-10-02 15:12 | Emergency (ER) | payer OTHER ==
--- NOTE | 2017-10-02 15:29 | EDPHY ---
H & P Stated Complaint: LOWER ABD PAIN SEEN THIS MORNING/NOW WITH FEVER/LOW BACK PAIN Time Seen by Provider: 10/02/17 15:28 - Personal History LMP (Females 10-55): Extended Cycle BCP/Inj Current Tetanus/Diphtheria Vaccine: Unsure - Medical/Surgical History Hx Asthma: No Hx Chronic Respiratory Disease: No Hx Diabetes: No Hx Cardiac Disease: No Hx Renal Disease: No Hx Cirrhosis: No Hx Alcoholism: No Hx HIV/AIDS: No Hx Splenectomy or Spleen Trauma: No Other PMH: endometriosis, Laproscopic surgery 12/12/2016, wisdom teeth age 18 - Social History Smoking Status: Never smoked Constitutional: Initial Vital Signs Temperature (C) 38.4 C H 10/02/17 15:15 Heart Rate 126 H 10/02/17 15:15 Respiratory Rate 20 10/02/17 15:15 Blood Pressure 89/68 L 10/02/17 15:15 O2 Sat (%) 97 10/02/17 15:15 O2 Delivery Mode Room Air Allergies/Adverse Reactions: amoxicillin Allergy (Verified 10/02/17 15:14) Other-Enter Comments Penicillins Allergy (Verified 10/02/17 15:14) Other-Enter Comments Home Medications: Medication Instructions Recorded Etonogestrel [Nexplanon] 68 mg SQ ONCE 12/16/16 Ciprofloxacin [Cipro] 500 mg PO BID #20 tab 10/02/17 HYDROcodone/APAP 10/325 [[place] 1 - 2 each PO Q4-6PRN PRN #20 tab 10/02/17 10/325] metroNIDAZOLE [Flagyl 500 mg (*)] 500 mg PO TID #30 tab 10/02/17 Medical Decision Making - Diagnostics Imaging Results: Imaging Impressions Abdomen CT 10/02/17 15:39 Impression: 1. Mild nonspecific colitis involving the rectum. No diverticula, abscess, or obstruction. 2. Normal appendix and small bowel pattern. 3. Normal genitourinary tract. No perinephric inflammation or hydronephrosis. Findings discussed with Emergency Department physician, Tamir Collado MD, on , 16:29. Imaging: Discussed imaging studies w/ water pump assembler Radiologist ED Course/Re-evaluation: CHIEF COMPLAINT: Abdominal pain HISTORY OF PRESENT ILLNESS: This patient is a 22 year old female returning to the emergency department complaining of abdominal pain. She was evaluated earlier today, but her symptoms have worsened since discharge. She now has back pain and a fever. She took hydrocodone with acetaminophen with no relief of her discomfort. No dysuria. Has never had similar pain in the past. She has history of endometriosis, but her current pain feels different. She denies vomiting, diarrhea, blood in her stool, or other associated symptoms. REVIEW OF SYSTEMS: A 10 point review of systems was performed and is negative with the exception of the elements mentioned in the history of present illness. PHYSICAL EXAM: HR, BP, O2 Sat, RR. Temp noted General Appearance: Alert, well hydrated, appropriate, and non-toxic appearing. Head: Atraumatic without scalp tenderness or obvious injury Eyes: Pupils equal, round, reactive to light and accommodation, EOMI, no trauma , no injection. Ears: Clear bilaterally, no perforation, normal landmarks Nose: Atraumatic, no rhinorrhea, clear. Throat: There is no erythema or exudates, no lesions, normal tonsils, mucus membranes moist. Neck: Supple, 2+ carotid upstroke, nontender, no lymphadenopathy. Respiratory: No retractions, no distress, no wheezes, and no accessory muscle use. Lungs are clear to auscultation bilaterally. Cardiovascular: Regular rate and rhythm, no murmurs, rubs, or gallops. Bilateral carotid, radial, dorsalis pedis, and posterior tibial pulses intact. Good capillary refill all extremities. Gastrointestinal: Right lower quadrant tenderness. Abdomen is soft, non- distended, no masses, no rebound, no guarding, no peritoneal signs. Musculoskeletal: Normal active ROM of all extremities, atraumatic. Neurological: Alert, appropriate, and interactive. The patient has normal DTRs and non-focal cranial nerves, motor, sensory, and cerebellar exam. Skin: Warm, diaphoretic. No rashes, good turgor, no nodules on palpation. Past medical history: Endometriosis, Past surgical history: Laparoscopic surgery 12/12/2016. [place] teeth removal. Family history: Noncontributory. Social history: Lives in [place]. Student at [employer]. Friend at bedside. DIFFERENTIAL DIAGNOSIS: The differential diagnosis for the patient's abdominal pain included but was not limited to ovarian cyst, pelvic inflammatory disease, ovarian torsion, urinary tract infection, ectopic , cholecystitis, and appendicitis. MEDICAL DECISION MAKIN22 y/o female presents with abdominal pain and fever. Temperature 38.4 at triage. Patient is not septic at this time and is well-appearing. RLQ tenderness on exam. Plan for labs including CBC, chemistries, liver, lipase, UA , BHCG. Plan to administer 4mg IV Zofran and 1mg IV Dilaudid for symptom relief. Plan for CT abdomen/pelvis. 16:[address] Garcia, radiologist. CT abdomen/pelvis shows possible rectosigmoid colitis. No diverticulitis. Negative for appendicitis or other acute processes. Administered an additional 0.5mg IV Dilaudid for pain relief. 16:46 Reassessed patient. Discussed imaging results. Plan to discharge home in good condition with prescription for Cipro and Flagyl as she has an allergy to amoxicillin and penicillin. We will administer the first doses of these medications here in the emergency department prior to discharge. I provided a referral to GI. Return precautions discussed. The patient is comfortable with this plan. - Data Points Laboratory Results: Laboratory Results 10/02/17 16:00 10/02/17 16:00 10/02/17 10/02/17 10/02/17 16:30 16:00 16:00 WBC RBC Hgb Hct MCV MCH MCHC RDW Plt Count MPV Neut % (Auto) Lymph % (Auto) Cotton % (Auto) Eos % (Auto) Baso % (Auto) Nucleat RBC Rel Count Absolute Neuts (auto) Absolute Lymphs (auto) Absolute Monos (auto) Absolute Eos (auto) Absolute Basos (auto) Absolute Nucleated RBC Immature Gran % Immature Gran # Sodium 138 mEq/L mEq/L (135-145) Potassium 3.8 mEq/L mEq/L (3.3-5.0) Chloride 107 mEq/L mEq/L (97-110) Carbon Dioxide 20 mEq/l L mEq/l (22-31) Anion Gap 11 mEq/L mEq/L (8-16) BUN 7 mg/dL mg/dL (7-23) Creatinine 0.6 mg/dL mg/dL (0.6-1.0) Estimated GFR > 60 Glucose 107 mg/dL H mg/dL (70-100) Calcium 7.8 mg/dL L mg/dL (8.5-10.4) Total Bilirubin 0.5 mg/dL mg/dL (0.1-1.4) Conjugated Bilirubin 0.4 mg/dL mg/dL (0.0-0.5) Unconjugated Bilirubin 0.1 mg/dL mg/dL (0.0-1.1) AST 22 IU/L IU/L (14-46) ALT 33 IU/L IU/L (9-52) Alkaline Phosphatase 42 IU/L IU/L (38-126) Total Protein 5.9 g/dL L g/dL (6.3-8.2) Albumin 3.3 g/dL L g/dL (3.5-5.0) Lipase 35 IU/L IU/L (23-300) Beta HCG, Qual NEGATIVE Urine Color PALE YELLOW Urine Appearance HAZY Urine pH 5.0 (5.0-7.5) Ur Specific [place] 1.021 (1.002-1.030) Urine Protein NEGATIVE (NEGATIVE) Urine Ketones TRACE H (NEGATIVE) Urine Blood NEGATIVE (NEGATIVE) Urine Nitrate NEGATIVE (NEGATIVE) Urine Bilirubin NEGATIVE (NEGATIVE) Urine Urobilinogen NEGATIVE EU EU (0.2-1.0) Ur Leukocyte Esterase NEGATIVE (NEGATIVE) Urine RBC 1-3 /hpf /hpf (0-3) Urine WBC 1-3 /hpf /hpf (0-3) Ur Epithelial Cells TRACE /lpf /lpf (NONE-1+) Urine Mucus TRACE /lpf /lpf (NONE-1+) Urine Glucose NEGATIVE (NEGATIVE) 10/02/17 16:00 WBC 4.53 10^3/uL 10^3/uL (3.80-9.50) RBC 4.67 10^6/uL 10^6/uL (4.18-5.33) Hgb 13.5 g/dL g/dL (12.6-16.3) Hct 37.6 % L % (38.0-47.0) MCV 80.5 fL L fL (81.5-99.8) MCH 28.9 pg pg (27.9-34.1) MCHC 35.9 g/dL g/dL (32.4-36.7) RDW 13.0 % % (11.5-15.2) Plt Count 196 10^3/uL 10^3/uL (150-400) MPV 9.3 fL fL (8.7-11.7) Neut % (Auto) 69.1 % % (39.3-74.2) Lymph % (Auto) 22.7 % % (15.0-45.0) Cotton % (Auto) 7.3 % % (4.5-13.0) Eos % (Auto) 0.0 % L % (0.6-7.6) Baso % (Auto) 0.7 % % (0.3-1.7) Nucleat RBC Rel Count 0.0 % % (0.0-0.2) Absolute Neuts (auto) 3.13 10^3/uL 10^3/uL (1.70-6.50) Absolute Lymphs (auto) 1.03 10^3/uL 10^3/uL (1.00-3.00) Absolute Monos (auto) 0.33 10^3/uL 10^3/uL (0.30-0.80) Absolute Eos (auto) 0.00 10^3/uL L 10^3/uL (0.03-0.40) Absolute Basos (auto) 0.03 10^3/uL 10^3/uL (0.02-0.10) Absolute Nucleated RBC 0.00 10^3/uL 10^3/uL (0-0.01) Immature Gran % 0.2 % % (0.0-1.1) Immature Gran # 0.01 10^3/uL 10^3/uL (0.00-0.10) Sodium Potassium Chloride Carbon Dioxide Anion Gap BUN Creatinine Estimated GFR Glucose Calcium Total Bilirubin Conjugated Bilirubin Unconjugated Bilirubin AST ALT Alkaline Phosphatase Total Protein Albumin Lipase Beta HCG, Qual Urine Color Urine Appearance Urine pH Ur Specific [place] Urine Protein Urine Ketones Urine Blood Urine Nitrate Urine Bilirubin Urine Urobilinogen Ur Leukocyte Esterase Urine RBC Urine WBC Ur Epithelial Cells Urine Mucus Urine Glucose Medications Given: Discontinued Medications Ciprofloxacin (Cipro) 500 mg PO EDNOW ONE PRN Reason: Protocol Stop: 10/02/17 16:42 Last Admin: 10/02/17 16:50 Dose: 500 mg Hydromorphone HCl (Dilaudid) 1 mg IVP EDNOW ONE Stop: 10/02/17 15:40 Last Admin: 10/02/17 15:54 Dose: 0.5 mg Hydromorphone HCl (Dilaudid) 0.5 mg IVP EDNOW ONE Stop: 10/02/17 16:53 Last Admin: 10/02/17 16:55 Dose: 0.5 mg Metronidazole (Flagyl) 500 mg PO EDNOW ONE PRN Reason: Protocol Stop: 10/02/17 16:42 Last Admin: 10/02/17 16:51 Dose: 500 mg Ondansetron HCl (Zofran) 4 mg IVP EDNOW ONE Stop: 10/02/17 15:40 Last Admin: 10/02/17 15:55 Dose: 4 mg Departure - Departure Disposition: Home, Routine, Self-Care Clinical Impression: Colitis Condition: Good Instructions: Colitis (ED) Additional Instructions: 1. Take Cipro and Flagyl as prescribed. It is important to finish your entire course of antibiotics even if you are feeling better. 2. Follow up with a GI specialist for further evaluation. We have referred you to our GI specialist consulting services associate. 3. Return to the emergency department for fever, worsening or changing abdominal pain, uncontrollable vomiting or diarrhea, or other worsening of condition. 4. Take ibuprofen as directed below as needed for pain. Take [place] as prescribed as needed for severe pain. Adult Pain & Fever Control: We recommend Acetaminophen (Tylenol) and Ibuprofen (Motrin,Advil) for pain and fever control. When fever is high or pain severe, both drugs can be used at the same time, but at different intervals. Please note the time differences. Your dose is: Acetaminophen 650mg every 4 to 6 hours Ibuprofen 600mg every 6-8 hours with food Note: do not take Acetaminophen with Hydrocodone (Vicodin, Lortab) or Oxycodone (Percocet). These medications also contain Acetaminophen. No more than 3000mg of Acetaminophen should be taken in 24 hours (for an adult). Referrals: Rachel Philippe MD [Medical Doctor] - As per Instructions Prescriptions: Ciprofloxacin [Cipro] 500 mg PO BID #20 tab HYDROcodone/APAP 10/325 [[place] 10/325] 1 - 2 each PO Q4-6PRN PRN #20 tab PRN Reason: Pain, Moderate metroNIDAZOLE [Flagyl 500 mg (*)] 500 mg PO TID #30 tab Report Scribed for: Tamir Collado Report Scribed by: Elva Schneider Date of Report: 10/02/17 Time of Report: 16:41
[2017-10-02] MEDS ORDERED: HYDROmorphONE/DILAUDID 2 MG/ML INJ IVP ONE ×2 (15:39→16:52)
[2017-10-02] MEDS ORDERED: ONDANSETRON 4 MG/2 ML VIAL IVP ONE (15:39)
[2017-10-02] MEDS ORDERED: HYDROmorphONE/DILAUDID 1 MG/ML INJ ONE ×2 (15:48→16:53)
[2017-10-02] MEDS ORDERED: IOPAMIDOL (ISOVUE-300) 100 ML BTL ONE (15:50)
[2017-10-02 16:08] LABS: PLATELET COUNT 196 10^3/uL (150-400)
[2017-10-02 16:31] VITALS: BP 94/56
[2017-10-02] MEDS ORDERED: metroNIDAZOLE 500 MG TAB PO ONE (16:41)
[2017-10-02] MEDS ORDERED: CIPROFLOXACIN 500 MG TAB PO ONE (16:41)
== END 2017-10-02 17:01 | disposition home or self-care (01) ==
DX: K52.9 Noninfective gastroenteritis and colitis, unspecified (principal)
CPT/HCPCS: 96374; J1170; J2405; Q9967

== ENCOUNTER 2017-10-03 11:21 | Inpatient (IN) | payer OTHER ==
[2017-10-03] MEDS ORDERED: NS 1,000 ML IV ONE (11:42)
[2017-10-03 12:01] LABS: PLATELET COUNT 185 10^3/uL (150-400)
[2017-10-03] MEDS ORDERED: KETAMINE 200 MG/20 ML VIAL IVP ONE (12:24)
--- NOTE | 2017-10-03 12:24 | EDPHY ---
H & P Stated Complaint: dx colitis seen x 2 in ed/not eating pain meds not working Time Seen by Provider: 10/03/17 11:41 HPI/ROS: CHIEF COMPLAINT: Severe abdominal pain HISTORY OF PRESENT ILLNESS: 22-year-old female presents with severe abdominal pain. Onset of generalized abdominal pain 4 days ago. The pain is persistent and associated with fever and lack of appetite. She was seen in this emergency department twice yesterday. CT scan of the abdomen pelvis revealed inflammation of the rectum. She was placed on Cipro Flagyl and Percocet without relief. She was seen at [facility] this morning because of severe pain. She has a history of endometriosis, but this pain is not similar. No vomiting or diarrhea. Because of decreased oral intake, she has not had a bowel movement in several days. REVIEW OF SYSTEMS: complete 10 point ROS negative except at noted in the HPI Source: Patient Exam Limitations: No limitations - Personal History LMP (Females 10-55): Extended Cycle BCP/Inj Current Tetanus Diphtheria and Acellular Pertussis (TDAP): Unsure - Medical/Surgical History Hx Asthma: No Hx Chronic Respiratory Disease: No Hx Diabetes: No Hx Cardiac Disease: No Hx Renal Disease: No Hx Cirrhosis: No Hx Alcoholism: No Hx HIV/AIDS: No Hx Splenectomy or Spleen Trauma: No Other PMH: endometriosis, Laproscopic surgery 12/12/2016, wisdom teeth age 18 - Social History Smoking Status: Never smoked Alcohol Use: Sober Additional Social History: single - Physical Exam Exam: General Appearance: Alert, pleasant, appears in pain Eyes: Pupils equal and round, no conjunctival pallor or injection ENT, Mouth: Mucous membranes moist Neck: Normal inspection Respiratory: Lungs are clear to auscultation Cardiovascular: Regular rate and rhythm Gastrointestinal: Abdomen is soft, diffuse tenderness, normal bowel sounds Neurological: A&O, nonfocal, normal gait Skin: Warm and dry, no rash Extremities: Normal inspection Psychiatric: Mood and affect normal Constitutional: Initial Vital Signs Temperature (C) 37.8 C 10/03/17 11:28 Heart Rate 114 H 10/03/17 11:28 Respiratory Rate 20 10/03/17 11:28 Blood Pressure 100/66 10/03/17 11:28 O2 Sat (%) 97 10/03/17 11:28 O2 Delivery Mode Room Air Allergies/Adverse Reactions: amoxicillin Allergy (Verified 10/03/17 11:27) Other-Enter Comments Penicillins Allergy (Verified 10/03/17 11:27) Other-Enter Comments Home Medications: Medication Instructions Recorded Etonogestrel [Nexplanon] 68 mg SQ ONCE 12/16/16 Ciprofloxacin [Cipro] 500 mg PO BID #20 tab 10/02/17 HYDROcodone/APAP 10/325 [[place] 1 - 2 each PO Q4-6PRN PRN #20 tab 10/02/17 10/325] metroNIDAZOLE [Flagyl 500 mg (*)] 500 mg PO TID #30 tab 10/02/17 Ondansetron HCl [Zofran] 4 mg PO Q4HRS PRN 10/03/17 Medical Decision Making ED Course/Re-evaluation: This patient presents with a 5 day history of severe abdominal pain. This is her 3rd ED visit in 24 hr and she has no relief with antibiotics and Percocet. Old medical record reviewed. CT scan of the abdomen pelvis yesterday revealed inflammatory changes of the rectum, consistent with acute proctitis. Today she is tachycardiac and has a low-grade temperature of 37.8 degrees. IV normal saline 1 L given and ketamine IV given. She will need to be admitted for further evaluation and treatment. The hospitalist service was consulted for admission. Differential Diagnosis: Differential diagnosis includes though it is not limited to appendicitis, cholecystitis, diverticulitis, pyelonephritis, bowel perforation, small bowel obstruction. - Data Points Laboratory Results: Laboratory Results 10/03/17 11:55 10/03/17 11:55 Medications Given: Acetaminophen (Tylenol) 650 mg PO Q4HRS PRN PRN Reason: Pain, Mild/Fever, Can Take PO Stop: 04/01/18 13:23 Last Admin: 10/05/17 02:54 Dose: 650 mg Clotrimazole (Mycelex) 10 mg PO 5XD SHANICE PRN Reason: Protocol Stop: 11/05/17 13:59 Last Admin: 10/06/17 14:50 Dose: 10 mg Dicyclomine HCl (Bentyl) 20 mg PO QID PRN PRN Reason: Pain, Breakthrough Stop: 04/01/18 15:59 Last Admin: 10/05/17 13:20 Dose: 20 mg Doxycycline Hyclate (Doxycycline Hyclate) 100 mg PO BID [facility] PRN Reason: Protocol Stop: 11/03/17 14:14 Last Admin: 10/06/17 09:57 Dose: 100 mg Haloperidol Lactate (Haldol Injection) 0.5 - 2.5 mg IVP Q6HRS PRN PRN Reason: Nausea/Vomiting, Can't Take PO Stop: 04/01/18 14:26 Last Admin: 10/04/17 01:55 Dose: 0.5 mg Hydromorphone HCl (Dilaudid) 0.2 - 1 mg IVP Q2HRS PRN PRN Reason: Pain, Severe Unable to Take PO Stop: 10/14/17 09:11 Last Admin: 10/05/17 12:25 Dose: 0.5 mg Hydromorphone HCl (Dilaudid) 2 mg PO Q4HRS PRN PRN Reason: Pain, Severe Able to Take PO Stop: 10/14/17 09:11 Last Admin: 10/06/17 15:36 Dose: 2 mg Sodium Chloride (Ns) 1,000 mls @ 75 mls/hr IV CONT SHANICE Stop: 04/01/18 13:29 Last Admin: 10/06/17 15:38 Dose: 1,000 mls Ceftriaxone Sodium 2 gm/ (Sterile Water) 20 mls @ 300 mls/hr IV DAILY@2200 [facility] Stop: 11/04/17 21:59 Last Admin: 10/05/17 22:33 Dose: 20 mls Ketorolac Tromethamine (Toradol) 30 mg IVP Q6HRS PRN PRN Reason: Pain, Severe Stop: 10/08/17 13:34 Last Admin: 10/04/17 08:25 Dose: 30 mg Lorazepam (Ativan Injection) 0.5 - 1 mg IVP Q8HRS PRN PRN Reason: Anxiety, Unable to Take PO Stop: 04/01/18 13:23 Last Admin: 10/05/17 17:37 Dose: 1 mg Ondansetron HCl (Zofran Odt) 4 mg PO Q4HRS PRN PRN Reason: Nausea/Vomiting, Use 1st Stop: 04/01/18 13:23 Last Admin: 10/05/17 12:31 Dose: 4 mg Promethazine HCl (Phenergan) 6.25 - 25 mg IVP Q6HRS PRN PRN Reason: Nausea/Vomiting, Use 2nd Stop: 04/01/18 13:23 Last Admin: 10/03/17 15:53 Dose: 25 mg Discontinued Medications Fentanyl (Sublimaze) Confirm Administered Dose 200 mcg .ROUTE .STK-MED ONE Stop: 10/04/17 09:28 Last Admin: 10/04/17 10:19 Dose: 100 mcg Sodium Chloride (Ns) 1,000 mls @ 0 mls/hr IV EDNOW ONE; Wide Open PRN Reason: Protocol Stop: 10/03/17 11:43 Last Admin: 10/03/17 11:53 Dose: 1,000 mls Methocarbamol 1,000 mg/ Sodium (Chloride) 60 mls @ 240 mls/hr IVP ONCE ONE Stop: 10/04/17 00:19 Last Admin: 10/04/17 01:06 Dose: 60 mls Sodium Chloride (Ns) 500 mls @ 0 mls/hr IV ONCE ONE PRN Reason: As Directed Stop: 10/04/17 09:01 Last Admin: 10/04/17 08:37 Dose: 500 mls Cefoxitin Sodium 2 gm/ Sodium (Chloride) 100 mls @ 200 mls/hr IV Q6HRS SHANICE PRN Reason: Protocol Stop: 11/03/17 14:29 Last Admin: 10/05/17 12:26 Dose: 100 mls Ketamine HCl (Ketamine) 9.4 mg 0.2 mg/kg (9.4 mg) IVP EDNOW ONE Stop: 10/03/17 12:25 Last Admin: 10/03/17 12:34 Dose: 9.4 mg Ketorolac Tromethamine (Toradol) 15 mg IVP EDNOW ONE Stop: 10/03/17 13:03 Last Admin: 10/03/17 13:04 Dose: 15 mg Midazolam HCl (Versed) Confirm Administered Dose 10 mg .ROUTE .STK-MED ONE Stop: 10/04/17 09:28 Last Admin: 10/04/17 10:19 Dose: 4 mg Departure - Departure Disposition: [facility] Acute Clinical Impression: Proctitis Condition: Good
[2017-10-03] MEDS ORDERED: KETOROLAC 15 MG/1 ML SDV IVP ONE (13:02)
[2017-10-03] MEDS ORDERED: PROMETHAZINE HCL 25 MG/ML INJ IVP PRN (13:24)
[2017-10-03] MEDS ORDERED: diphenhydrAMINE 25 MG CAP PO PRN (13:24)
[2017-10-03] MEDS ORDERED: IBUPROFEN 600 MG TAB PO PRN (13:35)
[2017-10-03] MEDS ORDERED: HALOPERIDOL LACT 5 MG/ML INJ IVP PRN (14:27)
[2017-10-03] MEDS ORDERED: HALOPERIDOL 1 MG TAB PO PRN (14:27)
[2017-10-03] MEDS ORDERED: NON-FORMULARY NEW DRUG (Etonogestrel [Nexplanon] 68 MG) SQ SCH (14:30)
--- NOTE | 2017-10-03 14:35 | PDGENHP ---
History and Physical - Chief Complaint Acute abdominal pain - History of Present Illness Primary care provider: [facility] HPI: 22-year-old female presents with acute abdominal pain characterized as severe cramping pain located diffusely throughout the abdomen as well as in the mid to lower back with associated nausea, documented fever of 103 degrees F, anorexia, with onset of symptoms 4 days prior, beginning at rest and awakening the patient from sleep, persistent duration thereafter. Patient reports that prior to the onset of symptoms, she had otherwise been feeling well, has been enjoying a low stress holiday weekend, and she is unable to identify any precipitating factor. Since the onset of the symptoms, her oral intake has been very low, as the nausea is exacerbated by oral intake, and she has been attempting to produce a bowel movement but has only had scant stool, particularly on the day of presentation, which was accompanied with some bright red blood per rectum. The patient does endorse that she was particularly straining at the time of that attempted bowel movement. The patient has had 3 presentations to the healthcare system in these past 4 days, the 1st one being at [facility] and the 2nd one being at [facility] emergency department where she was given the diagnosis of possible rectal colitis based on CT scan and was prescribed ciprofloxacin, Flagyl, Percocet which did not produce any appreciable benefit. She has been utilizing cold packs at home to alleviate her fever, and has not been taking any additional Tylenol or nonsteroidal anti-inflammatory medication. The symptoms are similar in character to her previous chronic pelvic and abdominal pain symptoms, but they are of a more prolonged duration. The patient reports that in the past she has experienced symptoms lasting approximately 24 hr, and there self-limited. The symptoms have lasted for approximately 4 days, and they do not appear to be abating. The patient has not seen a third grade teacher in the past for her abdominal symptoms. History Information - Allergies/Home Medication List Allergies/Adverse Reactions: amoxicillin Allergy (Verified 10/03/17 11:27) Other-Enter Comments Penicillins Allergy (Verified 10/03/17 11:27) Other-Enter Comments Home Medications: Etonogestrel [Nexplanon] 68 mg SQ ONCE 12/16/16 [Last Taken Unknown] Ondansetron HCl [Zofran] 4 mg PO Q4HRS PRN 10/03/17 [Last Taken Unknown] I have personally reviewed and updated: family history, medical history, social history, surgical history - Past Medical History Additional medical history: Chronic abdominal and pelvic pain syndrome, ruled out endometriosis during a laparoscopic exploration in December of 2016, patient continues to report that she has endometriosis - Surgical History Additional surgical history: Ex lap 12/12/16 completely normal with right lower quadrant adhesions but no endometriosis - Family History Additional family history: No family history of inflammatory bowel disease, no family history of chronic abdominal symptoms, no family history of cyclic fevers or anemia - Social History Smoking Status: Never smoked Alcohol Use: None Drug Use: Marijuana (Regularly) Additional social history: 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, she is originally from [place] [facility], her family's original origin is from [place] Review of Systems Review of Systems: ROS: 10pt was reviewed & negative except for what was stated in HPI & below Constitutional: Reports: fever Gastrointestinal: Reports: vomitting, rectal bleeding, abdominal pain, nausea Physical Exam Physical Exam: Temp Pulse Resp BP Pulse Ox 38.1 C 104 H 20 100/58 L 99 10/03/17 13:19 10/03/17 13:19 10/03/17 13:19 10/03/17 13:19 10/03/17 13:19 Constitutional: uncomfortable, No no apparent distress (Moderate), No not in pain (Moderate) Eyes: PERRL, anicteric sclera, EOMI Ears, Nose, Mouth, Throat: moist mucous membranes, hearing normal, ears appear normal, no oral mucosal ulcers, other (Poor teeth enamel) Cardiovascular: regular rate and rhythym, no murmur, rub, or gallop, No edema Respiratory: no respiratory distress, no rales or rhonchi, clear to auscultation Gastrointestinal: tenderness (In the mid abdomen), No normoactive bowel sounds ( Hypoactive bowel sounds), No guarding, No distension Skin: other (Several small pustular lesions on her anterior chest, to raised, mildly tender pustular lesions on her right thigh) Neurologic: AAOx3, sensation intact bilaterally, No weakness Psychiatric: not encephalopathic, thought process linear, anxious, No agitated Lab Data & Imaging Review 10/03/17 11:55 10/03/17 11:55 WBC 6.84 10^3/uL (3.80-9.50) 10/03/17 11:55 RBC 4.67 10^6/uL (4.18-5.33) 10/03/17 11:55 Hgb 13.4 g/dL (12.6-16.3) 10/03/17 11:55 Hct 37.1 % (38.0-47.0) L 10/03/17 11:55 MCV 79.4 fL (81.5-99.8) L 10/03/17 11:55 MCH 28.7 pg (27.9-34.1) 10/03/17 11:55 MCHC 36.1 g/dL (32.4-36.7) 10/03/17 11:55 RDW 12.7 % (11.5-15.2) 10/03/17 11:55 Plt Count 185 10^3/uL (150-400) 10/03/17 11:55 MPV 9.2 fL (8.7-11.7) 10/03/17 11:55 Neut % (Auto) 74.6 % (39.3-74.2) H 10/03/17 11:55 Lymph % (Auto) 17.0 % (15.0-45.0) 10/03/17 11:55 [place] % (Auto) 7.9 % (4.5-13.0) 10/03/17 11:55 Eos % (Auto) 0.0 % (0.6-7.6) L 10/03/17 11:55 Baso % (Auto) 0.4 % (0.3-1.7) 10/03/17 11:55 Nucleat RBC Rel Count 0.0 % (0.0-0.2) 10/03/17 11:55 Absolute Neuts (auto) 5.10 10^3/uL (1.70-6.50) 10/03/17 11:55 Absolute Lymphs (auto) 1.16 10^3/uL (1.00-3.00) 10/03/17 11:55 Absolute Monos (auto) 0.54 10^3/uL (0.30-0.80) 10/03/17 11:55 Absolute Eos (auto) 0.00 10^3/uL (0.03-0.40) L 10/03/17 11:55 Absolute Basos (auto) 0.03 10^3/uL (0.02-0.10) 10/03/17 11:55 Absolute Nucleated RBC 0.00 10^3/uL (0-0.01) 10/03/17 11:55 Immature Gran % 0.1 % (0.0-1.1) 10/03/17 11:55 Immature Gran # 0.01 10^3/uL (0.00-0.10) 10/03/17 11:55 Sodium 135 mEq/L (135-145) 10/03/17 11:55 Potassium 4.2 mEq/L (3.3-5.0) 10/03/17 11:55 Chloride 102 mEq/L (97-110) 10/03/17 11:55 Carbon Dioxide 21 mEq/l (22-31) L 10/03/17 11:55 Anion Gap 12 mEq/L (8-16) 10/03/17 11:55 BUN 5 mg/dL (7-23) L 10/03/17 11:55 Creatinine 0.5 mg/dL (0.6-1.0) L 10/03/17 11:55 Estimated GFR > 60 10/03/17 11:55 Glucose 108 mg/dL (70-100) H 10/03/17 11:55 Calcium 8.0 mg/dL (8.5-10.4) L 10/03/17 11:55 Visualized and Interpreted imaging results: Yes Interpretation: CT of the abdomen demonstrates some possible rectal colitis, normal appearing appendix, no bowel obstruction Assessment & Plan Assessment: 22-year-old female presents with acute on chronic abdominal pain Plan: 1. Abdominal pain. Acute on chronic, new problem this provider, further workup indicated. Potential etiologies include colitis versus functional abdominal pain syndrome versus symptomatic adhesions -reviewed outside records including 12/16/2016 history and physical by Dr. Eli Rosales, she recounts that the patient underwent a completely normal exploratory laparotomy which demonstrated no evidence of endometriosis, some right lower quadrant adhesions, and she suspected that the patient had a chronic pelvic pain syndrome and detailed anxious and compulsive behavior on the patient's part which seemed to be medically unfounded -that being said, the patient had a CT scan on 10/02/2017 which did demonstrate some rectal inflammation, possibly consistent with colitis or inflammatory bowel process -patient currently has a normal white blood cell count, she is not febrile, and her physical exam findings are not consistent with inflammation of the rectum, as she has diffuse tenderness over the entire abdomen as well as the mid and lower back -given that the patient did have potentially inflammatory changes yesterday, and now her abdominal symptoms are diffuse, will get plain film x-ray to ensure that there has not been any perforation -will check inflammatory markers including sed rate, CRP, as well as procalcitonin level -discussed with Dr. Rachel Philippe, gastroenterology consultation appreciated , we have agreed that a flex sig tomorrow morning would be appropriate to evaluate the possible rectal inflammation, and the patient will have a Fleet enema tomorrow at 9:00 a.m. As well as stool GI PCR panel -in the interim, will hold on additional antibiotics until above information has been obtained, given her current clinical stability -will treat supportively with IV fluids, antiemetics, Haldol as needed to help break the pain anxiety cycle, and then subsequent Bentyl given that I suspect that the patient has asymptomatic peristalsis and symptoms that are more consistent with irritable bowel syndrome -will attempt to avoid opiate pain medications, as the patient reports that her recent use of opiates was not helpful for abdominal pain, the ketamine in the emergency department was also not helpful, and 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 Regular, NPO in a.m. Prophylaxis. Low risk patient, SCDs Code. Full Disposition. Anticipated discharge is 10/04, pending stabilization of condition as outlined above.
[2017-10-03] MEDS: NS 1,000 ML IV SCH ×2 (15:52→23:17)
[2017-10-03] MEDS: PROMETHAZINE HCL 25 MG/ML INJ IVP PRN (15:53)
[2017-10-03] MEDS: KETOROLAC 30 MG/1 ML SDV IVP PRN (19:33)
[2017-10-03] MEDS: DICYCLOMINE 20 MG TAB PO PRN (19:34)
[2017-10-03] MEDS: ACETAMINOPHEN 325 MG TAB PO PRN (19:34)
[2017-10-03] MEDS: LORazepam 2 MG/ML INJ IVP PRN (22:23)
[2017-10-04] MEDS ORDERED: METHOCARBAMOL 1,000 MG in NS 50 ML IVP ONE (00:05)
[2017-10-04] MEDS: NS 1,000 ML IV SCH ×2 (07:17→22:58)
[2017-10-04] MEDS: ACETAMINOPHEN 325 MG TAB PO PRN ×2 (08:18→19:57)
[2017-10-04] MEDS: KETOROLAC 30 MG/1 ML SDV IVP PRN (08:25)
[2017-10-04] MEDS ORDERED: NS 500 ML IV ONE (09:00)
[2017-10-04] MEDS ORDERED: MIDAZOLAM 2 MG/2 ML VIAL ONE (09:27)
[2017-10-04] MEDS ORDERED: fentaNYL 100 MCG/2 ML INJ ONE (09:27)
--- NOTE | 2017-10-04 10:22 | GIREPORT ---
[facility] - Endoscopy Department Patient Name: Glenda Kate Procedure Date: 10/04/2017 9:27 AM Patient Type: Inpatient Attending MD/ ER Physician: Rachel Philippe MD Procedure: Flexible Sigmoidoscopy Indications: Generalized abdominal pain, Abnormal CT of the GI tract Providers: Rachel Philippe MD Medicines: Fentanyl 100 micrograms IV, Midazolam 4 mg IV Complications: No immediate complications. Description of Procedure: After obtaining informed consent, the endoscope was passed under direct vision. Throughout the procedure, the patient's blood pressure, pulse, and oxygen saturations were monitored continuously. The Colonoscope was introduced through the anus and advanced to the descending colon. The flexible sigmoidoscopy was accomplished without difficulty. The patient tolerated the procedure well. The quality of the bowel preparation was good. Moderate Sedation: Moderate (conscious) sedation was administered by the endoscopy nurse luís german supervised by the endoscopist. The following parameters were monitored: oxygen saturation, heart rate, blood pressure, and response to care. To orquidea physician intraservice time was 12 minutes. Findings: The perianal and digital rectal examinations were normal. A localized area of moderately erythematous, eroded and granular mucosa was found in the rectum. Biopsies were taken with a cold forceps for histol ogy. Estimated blood loss was minimal. Estimated Blood Loss: Estimated blood loss was minimal. Post Op Diagnosis: - Erythematous, eroded and granular mucosa in the rectum. Biopsied. Recommendation: - Await pathology results. - Advance diet as tolerated. - [facility] to [facility]. - Thank you for allowing me to participate in the care of your patient. Attending Participation: I personally performed the entire procedure. Rachel Philippe MD Rachel Philippe MD 10/04/2017 10:22:21 AM This report has been signed electronicallyRachel Philippe MD Number of Addenda: 0 Note Initiated On: 10/04/2017 9:27 AM [email or web address]
--- NOTE | 2017-10-04 10:26 | GCON ---
[f rep st] CONSULTATION DATE OF CONSULTATION: 10/04/2017 CHIEF COMPLAINT: Abdominal pain. HPI: I am asked to see this patient in consultation by Dr. Goldstein for chief complaint of abdominal p ain. Patient is a 22-year-old, who has history of possible functional bowel symptoms and questionabl e endometriosis in the past with abdominal pain. Underwent exploratory laparotomy in December 2016 whi ch was reportedly normal except for potentially adhesions. Had acute onset of abdominal pain that sh e states is different from her usual pain although across her abdomen and this has been associated wi th fevers. Initially had a bout of diarrhea on Saturday, but has had no stool since then. Generally d enies diarrhea, constipation. She did state that with straining, she noted some bright red blood carmela t was passed on 1 occasion. There have been no sick contacts. No known family history for recurrent abdominal pain. No family history for colitis. A CT scan done before admission showed possible rec orquidea inflammation that was mild. She was admitted for further evaluation. The patient denies swollen joints. However, she has had a new rash on her chest and a swollen lump on her thigh. ALLERGIES: Amoxicillin and penicillin. HOME MEDICATIONS: Nexplanon and Zofran. PAST MEDICAL HISTORY: Chronic abdominal pain with pelvic pain syndrome, exploratory laparotomy in , ruled out endometriosis. SOCIAL HISTORY: Patient reports marijuana use. FAMILY HISTORY: Negative for inflammatory bowel disease. REVIEW OF SYSTEMS: I performed a complete review of systems which is negative except for the pertine nt positives and negatives noted above in the HPI. PHYSICAL EXAM: VITAL SIGNS: She is febrile at 39.6. BP 102/68, pulse 110s. CONSTITUTIONAL: She i s alert, oriented, and does not appear to be in distress. EYES: No scleral icterus. HEENT: No ora l lesions. CARDIOVASCULAR: Regular rhythm. CHEST: Clear to auscultation. ABDOMEN: Soft. Some t enderness with no rebound. NEUROLOGIC: Nonfocal. SKIN: She has a blister type rash on her chest a nd a 2 cm slightly raised swollen nodule in her thigh. LABORATORY DATA: CT scan per the HPI. White count on admission is 6.4, with hematocrit of 37.1, and platelets of 185. Sed rate is 6. Chemistries within normal limits with normal LFTs. ASSESSMENT: 1. Abdominal pain. 2. Fever. 3. Diarrhea onset but no stools now with questionable inflammation of the rectum on CT scan. I thin k most likely she has an infectious, possibly viral, cause for her pain and fever. However, with the CT scan could consider this may be bowel involvement such as ulcerative colitis or ulcer proctitis, but I think less likely. Also consider other inflammatory rheumatologic versus infectious cause. Fo rtunately, patient has been unable to give stool sample. Discussed with the patient about proceeding with a flexible sigmoidoscopy given the findings on CT scan to at least achieve biopsies to see if t here is evidence of colitis, and patient agrees. PLAN: 1. Will proceed with flexible sigmoidoscopy with sedation and biopsy. 2. Will attempt to get stool studies. 3. Await C-reactive protein and consider further ID evaluation. /[id number]/MODL
--- NOTE | 2017-10-04 11:35 | ASMTCASEMG ---
Living Arrangements What is your living Answers: Alone arrangement? Who do you live with? Type Of Residence What kind of residence do Answers: Apartment you live in? Discharge Plan Comments Coordination Status Comments Notes: CM spoke w/ BANDAR Ferguson regarding d/c POC. Pt is a 22 y/o female admitted for abdominal pain. CM met w/ pt and boyfriend to provide support and resources. Pt denied having an eating disorder. Pt reports that she does not have any needs. No other identifiable needs at this time. CM available for changes. Plan: Independent Date Signed: 10/04/2017 11:34 AM Electronically Signed By:BOSTON Carbajal
[2017-10-04] MEDS: HYDROmorphONE/DILAUDID 1 MG/ML INJ IVP PRN ×3 (12:15→21:27)
[2017-10-04 12:29] LABS: HIV TYPE 1 AND 2 NEGATIVE (NEGATIVE)
[2017-10-04] MEDS: cefOXitin SODIUM 2 GM in NS 100 ML IV SCH ×3 (15:00→23:01)
[2017-10-04] MEDS: DOXYCYCLINE HYCLATE 100 MG CAP/TAB PO SCH ×2 (15:03→21:26)
--- NOTE | 2017-10-04 16:03 | GCON ---
[f rep st] CONSULTATION INFECTIOUS DISEASE CONSULT DATE OF CONSULTATION: 10/04/2017 PERSON REQUESTING CONSULT: Mert Goldstein MD REASON FOR CONSULT: To assist in the management of this 22-year-old female with abdominal pain and rectal ulcerations. HISTORY OF PRESENT ILLNESS: The patient is a 22-year-old female, whose previous medical history is notable for the followin. Dysmenorrhea: The patient has a history of severe dysmenorrhea in the past. The patient had an IUD placed for this reason 2 years ago, then last year , on December 12, the patient had a laparoscopy with IUD removal and some lysis of adhesions in the pelvic area, right lower quadrant, as she did not feel that the IUD was helping. She was not found to have evidence of endometriosis. The patient had Nexplanon implanted subsequently, and has had control over her dysmenorrhea, as the patient is now amenorrheic. 2. History of facial acne. 3. History of pneumonia 2 years ago. Regarding her present issues, the patient states that she was in her usual state of excellent health until the morning of October 02, or 3 days ago, when she woke up with severe centralized abdominal pain. The patient states she felt bloated. She had gone to bed that night feeling fine. She had some nausea , but no vomiting. No diarrhea. No vaginal discharge. [facility]. The patient was afebrile. She was treated with Zofran and pain medication, and sent home. The patient states she went home, went to bed, and then developed, what she describes as, rigors, with her teeth chattering and her body shaking. She took her temperature and it was 103.8. She came back to the emergency department, where she was febrile to 38.4. A CT scan of the abdomen and pelvis with IV contrast only showed evidence of mild proctitis with thickening of the rectum. She was given ciprofloxacin and metronidazole prior to discharge, and sent home with prescriptions for these medications. The patient states she went home and took a dose of metronidazole that night, but continued to feel unwell. The next day , the patient states that she had a very small, hard stool with some blood around it, and she admits to pushing forcibly to get this out. She states that she took a nap and hydrocodone for her abdominal discomfort, which persisted. Unfortunately, she woke up early this morning with severe abdominal discomfort, that, again, she describes as all over. Occasionally, it can radiate to her back. She went to [facility] early this morning, and was sent here for further evaluation and treatment. The patient was found to have a fever of 39.6. She was admitted, given the fact that she had been in and out of the emergency department over the past few days multiple times. GI was consulted, and the patient underwent a flexible sigmoidoscopy this morning. I did talk to Dr. Philippe, who told me that she saw a few shallow ulcerations in the rectum. Biopsies were taken. Dr. Philippe revealed the patient had no stool in the vault, so stool samples were unobtainable. Speaking with the patient today, she states that she has been in a monogamous relationship for the past 3 years with her male partner, Matti. She has had 3 sex partners in her lifetime. She states that they are together all of the time , and in fact live together in an apartment. She states that her last vaginal sexual activity was over a week ago. Again, she reports monogamy. She adamantly denies any anal sex of any sort, no use of sex toys, and no rectal trauma whatsoever. She has no history of sexually transmitted infections, specifically no history of herpes or syphilis. She denies any vaginal or oral ulcerations. She states that she has noticed a new onset of some erythematous, papulopustular lesions over her chest, as well as some tender, red papules on her right thigh. They are not pruritic. The lesions on her thigh are painful. She also has some new, small papulopustular lesions on her face, which she states are different from her usual acne. Again, these are not pruritic. Prior to this abdominal pain developing, the patient states she was feeling fine. She denies any unexplained weight loss, anorexia, small or large joint pain, changes in her bowel movements or bloody stool, sores in her mouth or vagina, swollen lymph nodes, or other. Presently, she feels nauseated and has ongoing diffuse abdominal pain, which she states is crampy and occasionally sharp. She states it occasionally radiates to her suprapubic area and her back. It wakes her up at night. Again, no vaginal discharge. She has not had a bowel movement in several days, with the exception of the very tiny bowel movement that was painful and associated with some surrounding blood yesterday. She also reports a very mild sore throat that began today. REVIEW OF SYSTEMS: As outlined above, otherwise 10 systems are reviewed and all are negative. PREVIOUS MEDICAL HISTORY: As outlined above. PREVIOUS SURGICAL HISTORY: History of laparoscopy with IUD removal and lysis of pelvic adhesions in the right lower quadrant on December 12, 2016. Patient developed severe pain on postop day 4, requiring a CT scan that was unrevealing. No other surgeries. MEDICATIONS PRIOR TO ADMISSION: Include the Nexplanon implant that she has had in her left arm for 1-1/2 years. She is also on 2 acne creams on her face, and very rarely takes Advil. She has not taken this recently. ALLERGIES: The patient states she has an allergy to amoxicillin and penicillin. When I asked her more about this, she told me that she fainted in high school. No rash, throat closure, or tongue swelling. SOCIAL HISTORY: The patient's family is originally from [place], but the patient was born and raised in [place], [place]. 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 She reports that her parents took her to get all of her childhood vaccines and she was a healthy child. No tobacco, no alcohol or any illicit substances, save for occasional marijuana that she, in the past, used to treat her dysmenorrhea. She uses it recreationally very rarely. She states that she vapes it, and occasionally ingests it and smokes it. Sexual history as outlined above. Travelled to [facility], over [employer]. The patient states that while she was there she had an episode of hives for unclear reasons. She went to 's tunnel [employer] afterward, after the lesions had resolved, and no further workup was obtained. The patient lives in an apartment with her partner, Matti. A recent, third roommate moved out. She has a Siberian Husky dog and a ferret, both of whom are well. Her partner has also been well. Travelled to the [facility] on a cruise for 5 days over , no unusual exposures. The patient enjoys reading, painting, and cooking. Otherwise, no unusual exposures. No recent insect bites that she is aware of. No ill contacts. No ingestion of undercooked foods, meats, or homemade goods. No unpasteurized milk. Other travel includes travel to [place] ( the patient was in the [place]) 3 years ago for 2 months. No unusual exposures, was living in an urban area. CATEGORY CONSULTANT HISTORY: G0, P0. No history of sexually transmitted infections. FAMILY HISTORY: Mother and father are alive and healthy. Two younger brothers and 1 older brother. The older brother has psoriasis. No history of tuberculosis. PHYSICAL EXAMINATION: VITAL SIGNS: T-current is 37, T-max is 39.6, heart rate is 76, blood pressure 101/64, 94% on room air. GENERAL: Very pleasant young woman sitting up in bed, looks tired, but nontoxic. HEENT: Atraumatic, normocephalic. Pupils equal, round, and reactive to light. Extraocular movements are intact. No conjunctival injection, icterus, or petechiae. Her left periorbital area is somewhat puffy, but the patient states she has been rubbing it and has been crying. No discharge from the nares, or sinus process tenderness. Mucous membranes are moist. No oral lesions noted whatsoever. She does have a furry tongue, but it is not consistent with candidal glossitis. No evidence of posterior oropharyngeal erythema or other ulcers. Dentition in good repair. Some staining of her front teeth that the patient states is from an Invisalign apparatus. NECK: Trachea midline. No thyromegaly or palpable thyroid nodules. LYMPHATICS: No cervical or supraclavicular adenopathy. CARDIOVASCULAR: S1, S2. Tachycardic. No rubs, gallops, or murmurs. LUNGS: No increased respiratory effort. Clear to auscultation bilaterally, with no rales, rhonchi, or wheeze. BREASTS: Descended bilaterally and appear normal. ABDOMEN: Hypoactive bowel sounds diffusely. Not distended. Diffusely mildly tender, but mostly in the suprapubic area and left upper quadrant. No masses palpable. : The vagina is notable for shaved mons pubis. There are no vaginal ulcerations visible. I did not perform a pelvic exam. RECTAL: The perianal area looks normal. EXTREMITIES: No clubbing, cyanosis, edema, or evidence of arthritis. SKIN: Notable for several small pustular lesions on her nose and cheeks bilaterally. There are approximately 10 erythematous papulopustular lesions on her chest that do not appear vesicular. There are also 3 larger, red papules on her right thigh that are painful to the touch. Her navel is pierced and her right ear tragus is pierced. NEUROLOGIC: She is alert and oriented x3. She is moving all 4 extremities. No confusion whatsoever. LABORATORY DATA: Notable for an ESR of 6, but a CRP of 147. White blood cell count is normal at 6.8, hematocrit 37, platelet count of 185, 74% neutrophils. BUN and creatinine are normal at 5 and 0.5. AST 22, ALT 33, alkaline phosphatase 40. Albumin low at 2.8. Procalcitonin of 0.17. HIV 1 and 2 antibodies are negative. Microbiologic data blood cultures x2 are pending. RADIOGRAPHIC DATA: As outlined above. CT scan of the abdomen and pelvis done on October 02 shows evidence of mild proctitis. IV contrast was used only, no other intraabdominal pathology noted. IMPRESSION: 22-year-old sexually active female in a monogamous relationship, who presents with 3 days of abrupt onset of diffuse abdominal pain and fever without leukocytosis. CT scan notable for mild proctitis, and flexible sigmoidoscopy this morning revealed several shallow rectal ulcerations. She also has evidence of a new papulopustular rash on her chest, and some erythematous papules on her right thigh. No relevant history of antecedent weight loss, joint pain, bloody diarrhea, or oral/vaginal ulcerations. The differential diagnosis of a young woman with fever, rash, and rectal ulcerations is broad, and includes both infectious and non-infectious etiologies. Insofar as infectious causes are concerned, potential etiologies include herpes simplex and syphilis, although the patient adamantly denies any anal sex or rectal penetration/new partners, and her accompanying severe abdominal pain is not usual for these. Other infections seem highly unlikely, such as chancroid and granuloma inguinale, and she is not the right phenotype for lymphogranuloma venereum. Acute human immunodeficiency virus is also a consideration, along with pathogens that can cause food-borne illness, such as Salmonella, Shigella, and Campylobacter. Given the abdominal pain, pelvic inflammatory disease remains a concern as well. Her rash does not appear consistent with disseminated gonorrhea, and would be atypical for syphilis, disseminated VZV, or CMV/EBV. Regarding noninfectious etiologies, potential considerations include autoimmune illnesses/vasculitides such as lupus, Behcet's disease, or Still's disease ( although this would be an unusual presentation). She denies any nonsteroidals ( these can also cause rectal ulcerations), and the solitary rectal ulcer syndrome seems unlikely. Malignancy also seems very unlikely. PLAN: 1. Diagnostically: a. Check syphilis IgG and HIV RNA. b. Await pathology results, which should reveal evidence of herpes simplex if causative. c. Gonorrhea and chlamydia testing of the throat, vagina, and rectum has been done by sd. d. Obtain CMV and EBV serologies. e. A swab of her chest was sent for HSV and VZV PCR, although this would be an unusual presentation. f. Obtain ALLAN. g. Stool for GI pathogen PCR. h. Stat pelvic ultrasound to further evaluate for evidence of pelvic inflammatory disease. She may need a pelvic exam moving forward, but will hold off on this for now. 2. Therapeutically: a. Start antibiotics to cover pelvic inflammatory disease pathogens (pending further evaluation) in the form of Cefoxitin 2 g IV q.6 hours and Doxycycline 100 mg p.o. twice daily. Thank you very much for consulting Infectious Disease. Will continue to follow this patient with you. Over 1.5 hours was spent with this patient today. /[id number]/MODL NISHA
--- NOTE | 2017-10-04 17:08 | HOSPPROG ---
Hospitalist Progress Note Assessment/Plan: Assessment: 22-year-old female presents with acute on chronic abdominal pain, found to have acute proctitis and SIRS Plan: 1. Abdominal pain. Acute on chronic, similar in character to previous episodes of pain (suspected to be functional in nature) but w/ longer duration ( typically lasts < 24hrs, this episode > 4 days), suspect that her pain has been triggered by an overt proctitis (discussed below) -r/o PID w/ US, and Abx pending further date (Cefoxitin + Doxy) -tx symptomatically w/ NSAIDs, haldol, bentyl, dilaudid and anti-emetics -resulting in low PO intake, cont to tx supportively w/ IVF 2. SIRS. Fever + tachycardia, likely driven by infectious vs. inflammatory presentation, s/p NS bolus 500cc this AM + ongoing IVF at 150/hr -Abx, IVF -monitor BCx -tx pain -unclear if papular/pustular lesions on chest/thigh are related, sent for HSV -if autoimmune condition more likely, and infxn w/u neg, recommend outpt Rheum f /u, ALLAN sent 3. Suspected acute proctitis. Scattered, shallow ulcers on sigmoidoscopy, unclear whether these are infectious vs. inflam -d/w Dr. Sylvester, appreciate ID work-up, we agreed to send HIV test, HSV, STD, and additional diagnostic w/u -per Dr. Philippe, biopsies sent -unlikely that the rectal inflammation is driving all of the abd pain, but it may be the trigger and is causing the back discomfort, tx supportively Diet. Adv as lily Prophylaxis. Low risk patient, SCDs Code. Full Disposition. Clinical condition is worsening, upgrade to inpatient admission status as she is having persistent fever, more intensive infxn w/u, and IV Abx/ IVF High-level medical complexity, high risk for worsening morbidity and/or mortality secondary to the issues outlined above. Subjective: ongoing abd discomfort, no BM Objective: Vital Signs Temp Pulse Resp BP Pulse Ox 37.0 C 94 16 111/74 97 10/04/17 15:27 10/04/17 15:27 10/04/17 15:27 10/04/17 15:27 10/04/17 15:27 Laboratory Results 10/03/17 15:00 10/04/17 04:39 10/03/17 10/04/17 10/05/17 05:59 05:59 05:59 Intake Total 3621 50 Balance 3621 50 - Physical Exam Constitutional: no apparent distress, appears nourished, uncomfortable, No not in pain (mod abd pain) Cardiovascular: tachycardia, No systolic murmur, No irregularly irregular, No edema Respiratory: no respiratory distress, no rales or rhonchi, clear to auscultation Gastrointestinal: tenderness (diffusely across abd), No normoactive bowel sounds (hypoactive bowel sounds), No guarding, No distension Skin: other (pustular lesions chest and acne on face, papular lesions which are tender on R thigh) Neurologic: AAOx3 Psychiatric: not encephalopathic, thought process linear, anxious, No agitated ICD10 Worksheet Patient Problems: Problems Problem Status Onset Abdominal pain Acute Acute colitis Acute Dysmenorrhea Acute Pelvic pain Acute
--- NOTE | 2017-10-04 18:06 | PDMN ---
Medical Necessity Medical necessity: Patient meets inpatient criteria per physician note and [facility] [facility] [place] Sepsis and Other Febrile Illness, without Focal Infection (presents w/ acute on chronic abd pain, found to have proctitis and SIRS/ ongoing tachycardia and fevers to 103.3; poss PID/awaiting US and serology; LOS will be > 2 midnights for ongoing IV hydration, IV antibiotics, further diagnostic workup and treatment.)
[2017-10-05] MEDS: ACETAMINOPHEN 325 MG TAB PO PRN (02:54)
[2017-10-05] MEDS: HYDROmorphONE/DILAUDID 1 MG/ML INJ IVP PRN ×3 (02:55→12:25)
[2017-10-05] MEDS: cefOXitin SODIUM 2 GM in NS 100 ML IV SCH ×2 (05:07→12:26)
[2017-10-05 05:16] LABS: PLATELET COUNT 187 10^3/uL (150-400)
[2017-10-05] MEDS: NS 1,000 ML IV SCH ×2 (06:01→22:35)
[2017-10-05] MEDS: DOXYCYCLINE HYCLATE 100 MG CAP/TAB PO SCH ×2 (09:35→20:08)
--- NOTE | 2017-10-05 10:02 | HOSPPROG ---
Hospitalist Progress Note Assessment/Plan: 22-year-old female presents with fever, rash and acute on chronic abdominal pain , found to have acute proctitis on flex sig and SIRS. Plan: # Abdominal pain. Flex sig revealed rectal ulcers. No diarrhea. Low suspicion for IBD. Pelvic u/s neg for ovarian torsion or other pathology. CT with rectal inflammation. -Cont Cefoxitin + Doxy for PID coverage -rectal biopsy pending -GI pathogen panel pending -pain control with NSAIDs, haldol, dilaudid and anti-emetics -cont IVF's # Fever and rash. Has vesicular rash on chest wall, but erythematous nodules on LE's, ?erythema nodosum. Appreciate ID assistance with workup, discussed with Dr. Sylvester. -HSV, HIV, CMV, ANCA, ALLAN, vasculitis studies, monospot, STI screens pending -requested biopsy of nodular leg lesions by gen surg # Right axillary pain. -MRI with and without contrast for further evaluation. # SIRS. Fever + tachycardia, likely driven by infectious vs. inflammatory presentation. No hypotension or leukocytosis. -Abx, IVF -monitor BCx -if autoimmune condition more likely, and infxn w/u neg, recommend outpt Rheum f /u, ALLAN sent Prophylaxis. Low risk patient, SCDs Code. Full Disposition. Cont inpt. High-level medical complexity, high risk for worsening morbidity and/or mortality secondary to the issues outlined above. Subjective: Pt doing ok. Had a BM this am, no diarrhea or brbpr. Abdominal pain controlled with dilaudid. No N/V. No headache. +sore throat. No CP, SOB or cough. +rash on chest and LE's. +pain in right axilla. Fevers persisted overnight, currently afebrile. Objective: Vital Signs Temp Pulse Resp BP Pulse Ox 37.1 C 90 16 103/75 99 10/05/17 08:00 10/05/17 08:00 10/05/17 08:00 10/05/17 08:00 10/05/17 08:00 Laboratory Results 10/05/17 04:58 10/04/17 04:39 10/04/17 10/05/17 10/06/17 05:59 05:59 05:59 Intake Total 3621 3309 Balance 3621 3309 - Physical Exam Constitutional: no apparent distress Eyes: PERRL Ears, Nose, Mouth, Throat: moist mucous membranes, other (left jeffrey-orbital edema, no erythema) Cardiovascular: regular rate and rhythym Respiratory: no respiratory distress, clear to auscultation Gastrointestinal: normoactive bowel sounds, soft, non-tender abdomen Skin: warm, other (vesicular rash on chest, erythematous nodular lesions on right thigh) Musculoskeletal: full muscle strength Neurologic: AAOx3 Psychiatric: interacting appropriately ICD10 Worksheet Patient Problems: Problems Problem Status Onset Acute colitis Acute Abdominal pain Acute Dysmenorrhea Acute Pelvic pain Acute
--- NOTE | 2017-10-05 10:05 | PCMIDPN ---
Assessment/Plan: 1. Fever, abdominal pain, rectal ulcers and rash in an otherwise healthy 22-year -old female: Etiology remains elusive. Patient now has exquisite tenderness under her right axilla without evidence of overlying skin erythema or palpable lymphadenopathy, although difficult exam. Reviewed potential zoonotic exposure as well. Although the patient has a ferret, the ferret has not scratched her, or bitten her. She does not kiss the ferret--rat bite fever, or leptospirosis seem very unlikely with this clinical presentation. Patient also has a sore throat. Will obtain Monospot as well. EBV and CMV serologies are pending. The rash does not appear consistent with the rash associated with Arcanobacterium. She does have new nodular lesions on her left lower extremity that appear more consistent with E nodosum, but these lesions are typically seen on the shins. This would be an unusual presentation for sarcoidosis, also. Insofar as sexually transmitted infections are concerned, doubt disseminated GC and syphilis. Pelvic ultrasound negative for evidence of tubo-ovarian abscess. Plan: * Continue cefoxitin and doxycycline for now pending results of STI screening tests, although clinical suspicion for disseminated GC, or gonorrhea and chlamydia and PID is low * Will have General surgery biopsy 1 of the lesions on her leg, as we are unable to obtain a dermatologic evaluation today * Send vasculitis studies * Check Monospot * Given sore throat, will also obtain group a strep DNA * Obtain MRI of right arm and armpit area given exquisite pain on exam Over 60 min was spent with this patient today, examining her, speaking with her , and reviewing case with hospitalist. 10/05/17 10:06 Subjective: Pelvic ultrasound unrevealing. Patient continues to spike fevers, and has developed some new tender nodules over her left lower extremity today. States that abdominal pain"under control"with fentanyl. Had a very small bowel movement today. No nausea or vomiting. Does not really feel hungry. No shortness of breath or cough. Still has a sore throat which he says is worse today. Objective: Cefoxitin 2 g IV q.6 hours day 2 Doxycycline 100 mg p.o. Twice daily day 2 T-max 39.3 degrees Vital Signs Temp Pulse Resp BP Pulse Ox 37.1 C 90 16 103/75 99 10/05/17 08:00 10/05/17 08:00 10/05/17 08:00 10/05/17 08:00 10/05/17 08:00 Laboratory Results 10/05/17 04:58 10/04/17 04:39 10/04/17 10/05/17 10/06/17 05:59 05:59 05:59 Intake Total 3621 3309 Balance 3621 3309 ESR 6 MM/HR (0-20) 10/03/17 15:00 C-Reactive Protein 147.7 mg/L (<10.0) H 10/03/17 15:00 Blood cultures negative - Physical Exam General Appearance: other (Has some periorbital puffiness left eye) EENT: other (No conjunctival injection or suffusion), No scleral icterus Respiratory: lungs clear Cardiac/Chest: regular rate, rhythm, tachycardia, No systolic murmur Extremities: other (Exquisite tenderness to palpation under right axilla. No overlying erythema or skin changes or swelling. Difficult to palpate a discrete lymph node.) Abdomen: non-tender, soft, other (Hypoactive bowel sounds) Skin: other (3 or 4 erythematous tender nodules appear bigger over the right thigh. She has new smaller nodules that are erythematous that have developed on the left lateral thigh. Pustular rash over malar area is worse today. Erythematous papular pustular rash over chest appears to have improved overnight. The lesions are fading.) Neuro/Psych: oriented x 3 ICD10 Worksheet Patient Problems: Problems Problem Status Onset Acute colitis Acute Abdominal pain Acute Dysmenorrhea Acute Pelvic pain Acute
[2017-10-05] MEDS ORDERED: GADOBUTROL 10 ML VIAL IVP ONE (10:07)
--- NOTE | 2017-10-05 10:07 | SOAPPROG ---
SOAP Progress Note Assessment/Plan: Assessment: 1. Febrile illness with rash of unclear etiology. Patient being evaluated by ID. With skin rashes, papules, would recommend Derm consult for biopsy. ? Sweet Syndrome. 2. Flexible sigmoidoscopy yesterday with non-specific erythema of the rectum. Biopsies pending. Patient denies any diarrhea at this time. Plan: 1. ID seeing patient to exclude infectious etiology 2. Recommend Dermatology consult to consider biopsy of papular lesions 3. Await biopsies from flexible sigmoidoscopy. 10/05/17 10:11 Subjective: CC: Abdominal pain and fever Patient with some complaint under her axilla. Had fever last night. Denies any diarrhea or GI symptoms. Objective: Vital Signs Temp Pulse Resp BP Pulse Ox 37.1 C 90 16 103/75 99 10/05/17 08:00 10/05/17 08:00 10/05/17 08:00 10/05/17 08:00 10/05/17 08:00 Laboratory Results 10/05/17 04:58 10/04/17 04:39 10/04/17 10/05/17 10/06/17 05:59 05:59 05:59 Intake Total 3621 3309 Balance 3621 3309 Generic Name Dose Route Start Last Admin Trade Name Freq PRN Reason Stop Dose Admin Acetaminophen 650 mg 10/03/17 13:24 10/05/17 02:54 Tylenol PO 04/01/18 13:23 650 mg Q4HRS PRN Administration Pain, Mild/Fever, Can Take PO Dicyclomine HCl 20 mg 10/03/17 13:26 10/03/17 19:34 Bentyl PO 04/01/18 15:59 20 mg QID PRN Administration Pain, Breakthrough Diphenhydramine HCl 25 - 50 mg 10/03/17 13:24 Benadryl PO 04/01/18 13:23 Q6HRS PRN Itching Doxycycline Hyclate 100 mg 10/04/17 14:15 10/05/17 09:35 Doxycycline Hyclate PO 11/03/17 14:14 100 mg BID SHANICE Administration Protocol Haloperidol 0.5 - 2.5 mg 10/03/17 14:27 Haldol PO 04/01/18 14:26 Q6HRS PRN Nausea/Vomiting, Use 1st Haloperidol Lactate 0.5 - 2.5 mg 10/03/17 14:27 06/01/18 01:55 Haldol Injection IVP 04/01/18 14:26 0.5 mg Q6HRS PRN Administration Nausea/Vomiting, Can't Take PO Hydromorphone HCl 0.2 - 1 mg 10/04/17 09:12 10/05/17 06:01 Dilaudid IVP 10/14/17 09:11 0.5 mg Q2HRS PRN Administration Pain, Severe Unable to Take PO Hydromorphone HCl 2 mg 10/04/17 09:12 Dilaudid PO 10/14/17 09:11 Q4HRS PRN Pain, Severe Able to Take PO Sodium Chloride 1,000 mls @ 150 mls/hr 10/03/17 13:30 10/05/17 06:01 Ns IV 04/01/18 13:29 1,000 mls CONT SHANICE Administration Cefoxitin Sodium 2 gm/ Sodium 100 mls @ 200 mls/hr 10/04/17 14:30 10/05/17 05 :07 Chloride IV 11/03/17 14:29 100 mls Q6HRS SHANICE Administration Protocol Ibuprofen 600 mg 10/03/17 13:35 Motrin PO 04/01/18 13:34 Q6HRS PRN Pain, Mild Ketorolac Tromethamine 30 mg 10/03/17 13:35 10/04/17 08:25 Toradol IVP 10/08/17 13:34 30 mg Q6HRS PRN Administration Pain, Severe Lorazepam 0.5 - 1 mg 10/03/17 13:24 10/03/17 22:23 Ativan Injection IVP 04/01/18 13:23 1 mg Q8HRS PRN Administration Anxiety, Unable to Take PO Ondansetron HCl 4 mg 10/03/17 13:24 Zofran IVP 04/01/18 13:23 Q4HRS PRN Nausea/Vomiting, Can't Take PO Ondansetron HCl 4 mg 10/03/17 13:24 Zofran Odt PO 04/01/18 13:23 Q4HRS PRN Nausea/Vomiting, Use 1st Promethazine HCl 12.5 - 25 mg 10/03/17 13:24 Phenergan PO 04/01/18 13:23 Q6HRS PRN Nausea/Vomiting, Use 2nd Promethazine HCl 6.25 - 25 mg 10/03/17 14:30 10/03/17 15:53 Phenergan IVP 04/01/18 13:23 25 mg Q6HRS PRN Administration Nausea/Vomiting, Use 2nd Discontinued Medications Generic Name Dose Route Start Last Admin Trade Name Maggy PRN Reason Stop Dose Admin Fentanyl Confirm 10/04/17 09:27 10/04/17 10:19 Sublimaze Administered 10/04/17 09:28 100 mcg Dose Administration 200 mcg .ROUTE .STK-MED ONE Gadobutrol Confirm 10/05/17 10:07 Gadavist 1 Mmol/Ml Administered 10/05/17 10:08 Dose 10 ml IVP .STK-MED ONE Sodium Chloride 1,000 mls @ 0 mls/hr 10/03/17 11:42 10/03/17 11:53 Ns IV 10/03/17 11:43 1,000 mls EDNOW ONE Administration Protocol Wide Open Methocarbamol 1,000 mg/ Sodium 60 mls @ 240 mls/hr 10/04/17 00:05 10/04/17 01 :06 Chloride IVP 10/04/17 00:19 60 mls ONCE ONE Administration Sodium Chloride 500 mls @ 0 mls/hr 10/04/17 09:00 10/04/17 08:37 Ns IV 10/04/17 09:01 500 mls ONCE ONE Administration As Directed Ketamine HCl 9.4 mg 10/03/17 12:24 10/03/17 12:34 Ketamine 0.2 mg/kg (9.4 mg) 10/03/17 12:25 9.4 mg IVP Administration EDNOW ONE Ketorolac Tromethamine 15 mg 10/03/17 13:02 10/03/17 13:04 Toradol IVP 10/03/17 13:03 15 mg EDNOW ONE Administration Midazolam HCl Confirm 10/04/17 09:27 10/04/17 10:19 Versed Administered 10/04/17 09:28 4 mg Dose Administration 10 mg .ROUTE .STK-MED ONE Promethazine HCl 6.25 - 12.5 mg 10/03/17 13:24 Phenergan IVP 04/01/18 13:23 Q6HRS PRN Nausea/Vomiting, Use 2nd Physical Exam - Physical Exam General Appearance: alert, no apparent distress Neck: non-tender, supple Respiratory: lungs clear, normal breath sounds Cardiac/Chest: regular rate, rhythm Abdomen: normal bowel sounds, non-tender, soft Skin: warm/dry, other (raised, tender papules on thighs, small pustules on chest and face) Neuro/Psych: alert, normal mood/affect, oriented x 3 ICD10 Worksheet Patient Problems: Problems Problem Status Onset Acute colitis Acute Abdominal pain Acute Dysmenorrhea Acute Pelvic pain Acute
[2017-10-05] MEDS: ONDANSETRON DISINTEGRATING 4 MG TAB PO PRN (12:31)
[2017-10-05] MEDS: DICYCLOMINE 20 MG TAB PO PRN (13:20)
[2017-10-05 13:39] LABS: CREATINE KINASE 150 IU/L (0-156)
[2017-10-05] MEDS: HYDROmorphONE/DILAUDID 2 MG TAB PO PRN ×2 (14:10→20:08)
[2017-10-05] MEDS ORDERED: IOPAMIDOL (ISOVUE-300) 100 ML BTL ONE (16:28)
[2017-10-05] MEDS: LORazepam 2 MG/ML INJ IVP PRN (17:37)
--- NOTE | 2017-10-05 19:39 | PDCONSULT ---
Radiology Transporter Note: Reason for consultation: Vesicular/pustular/nodular skin disorder biopsy. Physician requesting consultation: Dr. Rabia Armando Chief complaint: Abdominal pain, rectal ulcers, variegated skin lesions, pustular acne/folliculitis. History of present illness: This is a 22-year-old woman previously in good health who presents to the hospital with 4 days of increasing abdominal pain. She was initially admitted for abdominal pain and was found to have this secure lesions on her chest, nodular lesions on bilateral thighs and new onset of folliculitis or pustular acne. She also complains of right axillary pain and hand swelling. She also has left periorbital edema not related to trauma. 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 She does have mold in her house demonstrated on picture from her boyfriend cell phone. Flexible sigmoidoscopy performed yesterday biopsies are pending. Rectal ulcers were identified on this study. Past medical history: Endometriosis Past surgical history diagnostic laparoscopy December 2016 no findings of endometriosis on that study Medications: Implanon Social history: Lives with boyfriend, ferret and dog. Denies alcohol or drug use. Denies tobacco use Allergy penicillin and amoxicillin Family history denies any family history of cancers, immune compromise or genetic disorders Review of systems significant for her abdominal pain and endometriosis all others reviewed and are negative Objective: Alert oriented to person place and time moderate distress secondary to right axilla pain Face has pustular acne but this extends to behind both ears more reminiscent of folliculitis she also has stomatitis and left periorbital edema nontender Trachea is midline no lymphadenopathy of her supraclavicular or cervical regions left axilla has no adenopathy of significance right axilla is very tender to palpation unable to get good exam Mild swelling of the right hand Infraclavicular and sternal vesicular skin lesions Abdomen soft mildly diffusely distended no peritoneal signs no hepatosplenomegaly no hernia Bilateral thigh nodules approximately 8 mm with surrounding erythema. 2+ over 2+ femoral and dorsalis pedis pulses 2+ over 2+ radial pulses Good muscle strength Normal affect and judgment 10/05/17 04:58 10/04/17 04:39 Total Bilirubin 0.5 mg/dL (0.1-1.4) 10/04/17 04:39 AST 22 IU/L (14-46) 10/04/17 04:39 ALT 33 IU/L (9-52) 10/04/17 04:39 Imaging Impressions Upper Extremity MRI 10/05/17 09:53 Impression: 1. No source for axillary pain identified. 2. Mild focal deltoid myositis. Results reviewed with Dr. Sylvester. Chest CT 10/05/17 13:03 Impression: Small bilateral pleural effusions, right greater than left, with bilateral lower lobe infiltrates. Extremity Venous Study 10/05/17 13:06 Impression: Short segment of superficial cephalic vein thrombosis. No deep vein thrombosis identified. Personally reviewed all imaging studies with Dr. Brewer and patient. Impression: Autoimmune disorder with superinfection of skin unsure of etiology tests are still pending Plan: After discussion with infectious disease in Hospital Medicine skin biopsies will be obtained of nodular lesions on the thigh. The risks and benefits of this procedure been outlined with the patient her boyfriend all questions were addressed. The skin was will cleansed with chlorhexidine. Local anesthetic 1% xylocaine with epinephrine was infused in skin and subcutaneous tissues over 1 of the nodules on the right distal thigh. Sterile draping was then performed an elliptical incision including the skin and subcutaneous tissue were taken out sharply the skin was reapproximated using interrupted vertical mattress sutures- nylon. Patient tolerated procedure well. Approximately 1 cm skin by 0.8 cm skin was taken with the underlying tissue. Hemostasis was assured. Dressing was applied. The patient tolerated the procedure without difficulty. Care for this lesion will be keeping the dressing onto until tomorrow after which she can shower normally. No tub baths for 1 week.. Sutures will need to be removed in 1 week. Instructions were given to the patient
[2017-10-05] MEDS: cefTRIAXone 2 GM in STERILE WATER INJ 20 ML IV SCH (22:33)
[2017-10-06] MEDS: HYDROmorphONE/DILAUDID 2 MG TAB PO PRN ×4 (01:20→22:06)
[2017-10-06 05:09] LABS: PLATELET COUNT 194 10^3/uL (150-400)
[2017-10-06] MEDS: DOXYCYCLINE HYCLATE 100 MG CAP/TAB PO SCH ×2 (09:57→22:06)
[2017-10-06] MEDS ORDERED: ALTEPLASE 2 MG VIAL IVP PRN (10:03)
--- NOTE | 2017-10-06 10:20 | PCMIDPN ---
Assessment/Plan: 1. Fever, abdominal pain, oral/rectal ulcers and rash in an otherwise healthy 22 -year-old female: She has developed some oral ulcerations today, which are new, and her sore throat is worse. The erythematous nodular lesions (that looked like E nodosum) on her thighs are disappearing, and the rash on her chest and pustular rash on her face have improved. She has developed some *new* erythematous papules on the nape of her neck and behind her ears. There is no evidence of pathergy. Blood cultures remain negative. Diagnosis still remains elusive, but viral etiology or autoimmune process, such as inflammatory bowel disease, Bechets, or other seem most likely. The rash does not look consistent with disseminated VZV , Rickettsiosis, TSS, scarlet fever, rickettsiosis, or Leptospirosis. This would be an unusual presentation of Sweet syndrome, as well. Plan: * Obtain nasal viral PCR * Check enteroviral PCR, although this would be an unusual presentation * Will swab 1 of the oral ulcerations for HSV and VZV * Clotrimazole troches his for mild thrush * Will also place PICC line, as the patient tells me that it is extremely painful when she has her blood drawn and she is tired of being poked * Await results of multiple serologies that are pending, and autoimmune workup * Await skin biopsy results * Rectal biopsy pathology should have some preliminary results tomorrow * Continue ceftriaxone for now (this should cover rat bite fever, although doubtful of this diagnosis) as well as doxycycline. If blood cultures are unrevealing, consider stopping doxycycline tomorrow. 2. Right axillary pain: MRI unrevealing, and ultrasound negative for deep venous thrombosis. Septic arthritis seems extremely unlikely. Will continue to follow. Over 45 min was spent with this patient today. Case discussed with hospitalist , and gastroenterology service. Subjective: Feels better today overall. Fever curve trending down. Still having some abdominal discomfort. Had a small semi-formed bowel movement. Eyes are less puffy. Arm is still sore under the armpit on the right, but less than yesterday. Underwent skin biopsy of 1 of the red nodular lesions on the right thigh. Interestingly, the lesions on her left thigh are disappearing. No nausea or vomiting. Sore throat is worse. Still eating. No confusion or headache. No cough. No burning with urination or vaginal ulcerations or discharge. Objective: Ceftriaxone 2 g IV daily day 2 Doxycycline 100 mg p.o. Daily day 2 T-max 37.1 degrees Vital Signs Temp Pulse Resp BP Pulse Ox 36.8 C 102 H 14 112/72 96 10/06/17 07:31 10/06/17 07:31 10/06/17 07:31 10/06/17 07:31 10/06/17 07:31 Microbiology 10/04/17 13:30 Herpes Simplex Virus I (PCR) - Final Dermal - Chest Hsv-1 Dna Not Detected Herpes Simplex Virus II (PCR) - Final Hsv-2 Dna Not Detected Varicella-Zoster Group DNA (PCR) - Final Vzv Dna Not Detected - Final 10/05/17 09:40 Gastrointestinal Tract Panel (PCR) - Final Stool No Organism Detected Laboratory Results 10/06/17 04:50 10/06/17 04:50 10/05/17 10/06/17 10/07/17 05:59 05:59 05:59 Intake Total 3309 2064 Balance 3309 2064 ESR 6 MM/HR (0-20) 10/03/17 15:00 C-Reactive Protein 182.0 mg/L (<10.0) H 10/06/17 04:50 Multiple tests are pending. Blood cultures remain negative syphilis testing negative - Physical Exam General Appearance: other (Looks tired, but less ill compared with yesterday. Smiling.) EENT: other (Faint white patches in buccal mucosa consistent with oral candidiasis. Posterior oropharynx around the uvula with red patches that are not confluent. There is an ulceration left buccal mucosa by the posterior molars, as well as a small ulceration in the front under her lip on the gums no tongue ulcerations or ulcers under the tongue.) Respiratory: lungs clear Neck: full range of motion, supple Cardiac/Chest: regular rate, rhythm, other, No systolic murmur Extremities: other (Still has some tenderness under her right axilla, no palpable lymphadenopathy. Right hand is not puffy any longer.) Abdomen: other (Scaphoid. Minimal tenderness to palpation. No masses.) Skin: other (Small pustules on her cheeks have flattened and are improving. The 7-10 erythematous papular pustular lesions on her chest are fading. She does have a few papular pustular lesions that are new on the right side of her neck and the nape of her neck. The E nodosum type lesions on her right thigh are fading. Biopsy site clean and dry on the right. Left UE nodosum type lesions on the left thigh are disappearing as well. Patient has a few small pustular lesions on her mons pubis that look more like folliculitis no lesions on her feet palms or soles) Neuro/Psych: no motor/sensory deficits, oriented x 3 ICD10 Worksheet Patient Problems: Problems Problem Status Onset Acute colitis Acute Abdominal pain Acute Dysmenorrhea Acute Pelvic pain Acute
--- NOTE | 2017-10-06 11:29 | ASMTCMCOM ---
CM Note CM Note Notes: Patient continues to present with confounding symptoms (abd pain, oral/rectal ulcers, rash, R axillary pain). ID is following her closely. GI, hospital med, and surgery also following. Patient is feeling better today and is well supported by her boyfriend, whom she lives with. Case Management available when discharge needs become clear. Date Signed: 10/06/2017 11:29 AM Electronically Signed By:Obdulia Bender RN
--- NOTE | 2017-10-06 13:06 | PDRADPN ---
Radiology Procedure Note Date of Procedure: 10/06/17 Radiologist: Rafael Kumar Anesthesia: Local (Specify) Pre-op Diagnosis: poor iv access Post-op Diagnosis: same Indication: medication access Procedure: rue picc Finding(s): access via basilic. 35cm SL PICC. tip of cath at cavoatrial junction. ok to use. Inf/Abcess present in the surg proc area at time of surgery?: No EBL: Minimal Complications: none
[2017-10-06] MEDS: CLOTRIMAZOLE 10 MG TROCHE PO SCH ×3 (14:50→22:07)
[2017-10-06] MEDS: NS 1,000 ML IV SCH (15:38)
--- NOTE | 2017-10-06 16:08 | HOSPPROG ---
Hospitalist Progress Note Assessment/Plan: 22-year-old female presents with fever, rash and acute on chronic abdominal pain , found to have acute proctitis on flex sig and SIRS. Plan: # Abdominal pain. Flex sig revealed rectal ulcers. No diarrhea. Low suspicion for IBD. Pelvic u/s neg for ovarian torsion or other pathology. CT with rectal inflammation. GI path panel neg. -Cont Ceftriaxone + Doxy for PID coverage -rectal biopsy pending -pain control with NSAIDs, dilaudid and anti-emetics -cont IVF's # Fever and rash. Has vesicular rash on chest wall, but erythematous nodules on LE's, ?erythema nodosum. S/P biopsy of nodular leg lesion by Dr. Guido yesterday, path pending. Appreciate ID assistance with workup, discussed with Dr. Sylvester. HSV neg. CMV and EBV IgM Ab's neg. -HIV, ANCA, ALLAN, RF, vasculitis studies, STI screens and further infectious w/u per ID pending -f/u path on leg nodule biopsy # Right axillary pain. -MRI with and without contrast normal # SIRS. Fever + tachycardia, likely driven by infectious vs. inflammatory presentation. No hypotension or leukocytosis. -Abx, IVF -monitor BCx -if autoimmune condition more likely, and infxn w/u neg, recommend outpt Rheum f /u, ALLAN pending Prophylaxis. Low risk patient, SCDs Code. Full Disposition. Cont inpt. High-level medical complexity, high risk for worsening morbidity and/or mortality secondary to the issues outlined above. Subjective: Pt feels a little better today. Less abdominal pain. No fever in 24 hrs. Rash seems to be resolving. No CP, SOB, or cough. Taking po. Objective: Vital Signs Temp Pulse Resp BP Pulse Ox 36.9 C 96 18 108/79 98 10/06/17 15:47 10/06/17 15:47 10/06/17 15:47 10/06/17 15:47 10/06/17 15:47 Microbiology 10/04/17 13:30 Herpes Simplex Virus I (PCR) - Final Dermal - Chest Hsv-1 Dna Not Detected Herpes Simplex Virus II (PCR) - Final Hsv-2 Dna Not Detected Varicella-Zoster Group DNA (PCR) - Final Vzv Dna Not Detected - Final 10/05/17 09:40 Gastrointestinal Tract Panel (PCR) - Final Stool No Organism Detected Laboratory Results 10/06/17 04:50 10/06/17 04:50 10/05/17 10/06/17 10/07/17 05:59 05:59 05:59 Intake Total 3309 2064 Balance 3309 4 - Physical Exam Constitutional: no apparent distress Eyes: PERRL Ears, Nose, Mouth, Throat: moist mucous membranes Cardiovascular: regular rate and rhythym Respiratory: no respiratory distress, clear to auscultation Gastrointestinal: normoactive bowel sounds, soft, non-tender abdomen Skin: other (pustular rash on face improving, vesicular rash on chest improving , nodular lesions on legs resolving) Musculoskeletal: full muscle strength Neurologic: AAOx3 Psychiatric: interacting appropriately ICD10 Worksheet Patient Problems: Problems Problem Status Onset Acute colitis Acute Abdominal pain Acute Dysmenorrhea Acute Pelvic pain Acute
[2017-10-06] MEDS: cefTRIAXone 2 GM in STERILE WATER INJ 20 ML IV SCH (22:19)
[2017-10-07] MEDS: NS 1,000 ML IV SCH (05:07)
[2017-10-07] MEDS: CLOTRIMAZOLE 10 MG TROCHE PO SCH ×5 (05:07→22:55)
[2017-10-07] MEDS: HYDROmorphONE/DILAUDID 2 MG TAB PO PRN ×4 (05:09→22:54)
[2017-10-07] MEDS: DOXYCYCLINE HYCLATE 100 MG CAP/TAB PO SCH ×2 (09:07→20:39)
[2017-10-07] MEDS: ONDANSETRON DISINTEGRATING 4 MG TAB PO PRN (10:39)
[2017-10-07] MEDS: PROMETHAZINE HCL 25 MG/ML INJ IVP PRN (11:24)
--- NOTE | 2017-10-07 12:14 | HOSPPROG ---
Hospitalist Progress Note Assessment/Plan: 22-year-old female presents with fever, rash and acute on chronic abdominal pain , found to have acute proctitis on flex sig and SIRS. Plan: # Abdominal pain. Flex sig revealed rectal ulcers. No diarrhea. Low suspicion for IBD. Pelvic u/s neg for ovarian torsion or other pathology. CT with rectal inflammation. GI path panel neg. -Cont Ceftriaxone + Doxy for PID coverage. Discussed with Dr. Velasco, who feels she can d/c off atbx -rectal biopsy pending -pain control with NSAIDs, trying to wean down dilaudid -cont IVF's # Fever and rash. Has vesicular rash on chest wall, but erythematous nodules on LE's, ?erythema nodosum. S/P biopsy of nodular leg lesion by Dr. Guido yesterday, path pending. Appreciate ID assistance with workup, discussed with Dr. Sylvester. HSV neg. CMV and EBV IgM Ab's neg. -HIV, ANCA, ALLAN, vasculitis studies, STI screens and further infectious w/u per ID pending -f/u path on leg nodule biopsy # Right axillary pain. -MRI with and without contrast normal # SIRS. Fever + tachycardia, resolved, infectious (?viral) vs. inflammatory process. No hypotension or leukocytosis. -Abx, IVF -monitor BCx -RF neg, ALLAN and anti-DS DNA pending Nausea/vomiting - improved with phenergan, will add Protonix Prophylaxis. Low risk patient, SCDs Code. Full Disposition. Cont inpt. Likely dc tomorrow if remains stable High-level medical complexity, high risk for worsening morbidity and/or mortality secondary to the issues outlined above. Subjective: Pt very sleepy after receiving phenergan this am. She vomited after drinking a fruit smoothie. Afebrile. Awakens from sleep and immediately asks for pain medication, though she appears very comfortable. Objective: Vital Signs Temp Pulse Resp BP Pulse Ox 36.9 C 87 14 102/69 94 10/07/17 08:00 10/07/17 08:00 10/07/17 08:00 10/07/17 08:00 10/07/17 08:00 Microbiology 10/06/17 11:26 Herpes Simplex Virus I (PCR) - Final Oral - Lesion Hsv-1 Dna Not Detected Herpes Simplex Virus II (PCR) - Final Hsv-2 Dna Not Detected Varicella-Zoster Group DNA (PCR) - Final Vzv Dna Not Detected - Final Laboratory Results 10/06/17 04:50 10/06/17 04:50 10/06/17 10/07/17 10/08/17 05:59 05:59 05:59 Intake Total 2063 1423 Output Total 200 Balance 2063 1423 -200 - Physical Exam Constitutional: no apparent distress Eyes: PERRL Ears, Nose, Mouth, Throat: moist mucous membranes Cardiovascular: regular rate and rhythym Respiratory: no respiratory distress Gastrointestinal: normoactive bowel sounds, soft, non-tender abdomen Skin: warm, other (pustular rash on face and chest resolving, nodular lesions on legs resolving) Neurologic: AAOx3 Psychiatric: interacting appropriately ICD10 Worksheet Patient Problems: Problems Problem Status Onset Proctitis Acute Abdominal pain Acute Dysmenorrhea Acute Pelvic pain Acute
[2017-10-07 13:18] LABS: GC AMPLIFICATION GENPROBE NEGATIVE (NEGATIVE)
[2017-10-07 13:19] LABS: GC AMPLIFICATION GENPROBE NEGATIVE (NEGATIVE)
[2017-10-07 13:21] LABS: GC AMPLIFICATION GENPROBE NEGATIVE (NEGATIVE)
[2017-10-07] MEDS: PANTOPRAZOLE SODIUM 40 MG VIAL IVP SCH (14:53)
[2017-10-07] MEDS: KETOROLAC 30 MG/1 ML SDV IVP PRN (20:45)
[2017-10-07] MEDS: PROMETHAZINE HCL 25 MG TAB PO PRN (20:47)
[2017-10-07] MEDS: cefTRIAXone 2 GM in STERILE WATER INJ 20 ML IV SCH (22:55)
[2017-10-08] MEDS: CLOTRIMAZOLE 10 MG TROCHE PO SCH ×5 (06:50→21:39)
--- NOTE | 2017-10-08 09:00 | PCMIDPN ---
Assessment/Plan: 1. History of Fever, abdominal pain, oral/rectal ulcers and rash in an otherwise healthy 22-year-old female: Fevers have resolved, and all 3 of her rashes have improved. The oral ulcerations in her mouth are gone, and her sore throat has improved. Pathology of thigh rash looks consistent with e. nodosum. Rectal pathology is nonspecific , and shows normal rectal mucosa. Patient's main complaint is ongoing abdominal pain. Denies diarrhea or blood in her stool. Had some nausea and vomiting yesterday as well. I think the next diagnostic step should be a upper endoscopy. Will talk with the GI about this. Will also discontinue ceftriaxone and continue doxycycline for now given unknown diagnosis. Will also attempt to get rheumatologic evaluation for unusual entities such as familial Mediterranean fever, TRAPS, and AIP. Vasculitis, such as Bechets still plausible. Kidney function is normal, no evidence of pulmonary involvement. Clinical findings argue against HSP or HUMPHREYS. Plan discussed with patient and her partner. Subjective: Sore throat is improved. Pain under her right axilla is also improved. Fevers are gone. Her rashes are markedly better, on the face, chest, and legs. Continues to have abdominal pain requiring narcotics. Also threw up yesterday. No blood in her stool. Anorectic. Objective: Ceftriaxone 2 g IV daily day 4 Doxycycline 100 mg IV daily day for No fever Vital Signs Temp Pulse Resp BP Pulse Ox 36.9 C 92 12 99/66 L 95 10/07/17 22:59 10/07/17 22:59 10/07/17 22:59 10/07/17 22:59 10/07/17 22:59 Microbiology 10/06/17 11:26 Herpes Simplex Virus I (PCR) - Final Oral - Lesion Hsv-1 Dna Not Detected Herpes Simplex Virus II (PCR) - Final Hsv-2 Dna Not Detected Varicella-Zoster Group DNA (PCR) - Final Vzv Dna Not Detected - Final Laboratory Results 10/06/17 04:50 10/06/17 04:50 10/07/17 10/08/17 10/09/17 05:59 05:59 05:59 Intake Total 1423 857 Output Total 200 Balance 1423 657 ESR 6 MM/HR (0-20) 10/03/17 15:00 C-Reactive Protein 182.0 mg/L (<10.0) H 10/06/17 04:50 Multiple viral tests, bacterial tests, and autoimmune tests are negative - Physical Exam General Appearance: other (Looks much better compared with 2 days ago) EENT: other (Faint erythema in her posterior oropharynx. Ulcerations in her upper left buccal mucosa and frontal gum area are gone) Respiratory: lungs clear Cardiac/Chest: regular rate, rhythm, No systolic murmur Extremities: other (Pain under right axilla much better. No palpable mass or node. No joint swelling of the large or small joints.) Abdomen: other (Hypoactive bowel sounds. Diffusely tender.) Skin: other (Pustular rash on her malar area is practically gone. The erythematous papular lesions on her chest and right side of neck are practically gone. There is a small pustule over her right midback. Erythema nodosum type lesions on her right thigh are gone, and they are gone on the left thigh. Biopsy site looks clean and dry.) ICD10 Worksheet Patient Problems: Problems Problem Status Onset Proctitis Acute Abdominal pain Acute Dysmenorrhea Acute Pelvic pain Acute
[2017-10-08] MEDS: DOXYCYCLINE HYCLATE 100 MG CAP/TAB PO SCH ×2 (09:06→21:39)
[2017-10-08] MEDS: PANTOPRAZOLE SODIUM 40 MG VIAL IVP SCH (09:06)
[2017-10-08] MEDS: HYDROmorphONE/DILAUDID 2 MG TAB PO PRN ×3 (09:12→22:57)
--- NOTE | 2017-10-08 09:44 | HOSPPROG ---
Hospitalist Progress Note Assessment/Plan: 22-year-old female presents with fever, rash and acute on chronic abdominal pain , found to have acute proctitis on flex sig and SIRS. Plan: # Abdominal pain. Nausea and vomiting developed yesterday. CT on admission with rectal inflammation. Flex sig revealed rectal ulcers, biopsy non-specific , no significant inflammation or e/o IBD. Pelvic u/s neg for ovarian torsion or other pathology. GI path panel neg. -per ID, narrow atbx to Doxy -cont Protonix -GI will consult for EGD / c-scope for further evaluation -send porphyria workup -also send IgA TTG to r/o celiac as pt describes frequent diarrhea issues -pain control with NSAIDs, trying to wean down dilaudid -cont IVF's until taking better po # Fever and rash. Vesicular / pustular rash on face and chest mostly resolved. Appreciate ID assistance with workup. HSV neg. CMV and EBV IgM Ab's neg. ALLAN, anti-DS DNA and RF neg. Nodular leg lesion biopsy c/w e nodosum. -HIV, ANCA, vasculitis studies pending # Right axillary pain, mostly resolved. MRI with and without contrast normal # SIRS. Fever + tachycardia, resolved. Infectious (?viral) vs. inflammatory process. No hypotension or leukocytosis. BCxs ngtd. Prophylaxis. Low risk patient, SCDs Code. Full Disposition. Cont inpt. Further GI evaluation planned. Subjective: Pt continues to have abdominal pain. No more N/V, says anti- emetics are helping. No fevers/chills. She thinks the abdominal pain hasn't gotten better since admission, but the pain medicine has kept it controlled. Objective: Vital Signs Temp Pulse Resp BP Pulse Ox 36.9 C 95 16 113/75 99 10/08/17 08:00 10/08/17 08:00 10/08/17 08:00 10/08/17 08:00 10/08/17 08:00 Microbiology 10/06/17 11:26 Herpes Simplex Virus I (PCR) - Final Oral - Lesion Hsv-1 Dna Not Detected Herpes Simplex Virus II (PCR) - Final Hsv-2 Dna Not Detected Varicella-Zoster Group DNA (PCR) - Final Vzv Dna Not Detected - Final Laboratory Results 10/06/17 04:50 10/06/17 04:50 10/07/17 10/08/1718 05:59 05:59 05:59 Intake Total 1423 857 Output Total 200 Balance 1423 657 - Physical Exam Constitutional: no apparent distress Eyes: PERRL Ears, Nose, Mouth, Throat: moist mucous membranes Cardiovascular: regular rate and rhythym Respiratory: no respiratory distress, clear to auscultation Gastrointestinal: normoactive bowel sounds, soft, non-tender abdomen Skin: warm Musculoskeletal: full muscle strength Neurologic: AAOx3 Psychiatric: interacting appropriately ICD10 Worksheet Patient Problems: Problems Problem Status Onset Proctitis Acute Abdominal pain Acute Dysmenorrhea Acute Pelvic pain Acute
[2017-10-08] MEDS: NS 1,000 ML IV SCH (11:39)
[2017-10-08 13:23] LABS: HIV-1 RNA PCR < 1.00 copy/mL (<20)
--- NOTE | 2017-10-08 14:11 | SOAPPROG ---
SOAP Progress Note Assessment/Plan: Assessment: Negative work up. No further fevers. Skin biopsies c/w erythema nodosum. Plan: Proceed with EGD and Colon tomorrow 10/08/17 14:08 Subjective: CC: Fever, skin rash and abdominal pain Patient with out recurrent fever. ID work up unremarkable. Skin lesions improving. Bx c/w E Nodosum Objective: Vital Signs Temp Pulse Resp BP Pulse Ox 36.9 C 95 16 113/75 99 10/08/17 08:00 10/08/17 08:00 10/08/17 08:00 10/08/17 08:00 10/08/17 08:00 Microbiology 10/06/17 11:26 Herpes Simplex Virus I (PCR) - Final Oral - Lesion Hsv-1 Dna Not Detected Herpes Simplex Virus II (PCR) - Final Hsv-2 Dna Not Detected Varicella-Zoster Group DNA (PCR) - Final Vzv Dna Not Detected - Final Laboratory Results 10/08/17 10:50 10/08/17 10:50 10/07/17 10/08/17 10/09/17 05:59 05:59 05:59 Intake Total 1423 857 Output Total 200 Balance 1423 657 Generic Name Dose Route Start Last Admin Trade Name Freq PRN Reason Stop Dose Admin Acetaminophen 650 mg 10/03/17 13:24 10/05/17 02:54 Tylenol PO 04/01/18 13:23 650 mg Q4HRS PRN Administration Pain, Mild/Fever, Can Take PO Alteplase, Recombinant 2 mg 10/06/17 10:03 Cathflo Activase IVP 04/04/18 10:02 PRN PRN Per PICC line policy Clotrimazole 10 mg 10/06/17 14:00 10/08/17 09:06 Mycelex PO 11/05/17 13:59 10 mg 5XD SHANICE Administration Protocol Dicyclomine HCl 20 mg 10/03/17 13:26 10/05/17 13:20 Bentyl PO 04/01/18 15:59 20 mg QID PRN Administration Pain, Breakthrough Diphenhydramine HCl 25 - 50 mg 10/03/17 13:24 Benadryl PO 04/01/18 13:23 Q6HRS PRN Itching Doxycycline Hyclate 100 mg 10/04/17 14:15 10/08/17 09:06 Doxycycline Hyclate PO 11/03/17 14:14 100 mg BID SHANICE Administration Protocol Haloperidol 0.5 - 2.5 mg 10/03/17 14:27 Haldol PO 04/01/18 14:26 Q6HRS PRN Nausea/Vomiting, Use 1st Haloperidol Lactate 0.5 - 2.5 mg 10/03/17 14:27 10/04/17 01:55 Haldol Injection IVP 04/01/18 14:26 0.5 mg Q6HRS PRN Administration Nausea/Vomiting, Can't Take PO Hydromorphone HCl 2 mg 10/07/17 13:00 10/08/17 09:12 Dilaudid PO 10/14/17 09:11 2 mg Q6H PRN Administration Pain, Severe Able to Take PO Sodium Chloride 1,000 mls @ 75 mls/hr 10/03/17 13:30 10/08/17 11:39 Ns IV 04/01/18 13:29 1,000 mls CONT SHANICE Administration Ibuprofen 600 mg 10/03/17 13:35 Motrin PO 04/01/18 13:34 Q6HRS PRN Pain, Mild Lorazepam 0.5 - 1 mg 10/03/17 13:24 10/05/17 17:37 Ativan Injection IVP 04/01/18 13:23 1 mg Q8HRS PRN Administration Anxiety, Unable to Take PO Ondansetron HCl 4 mg 10/03/17 13:24 Zofran IVP 04/01/18 13:23 Q4HRS PRN Nausea/Vomiting, Can't Take PO Ondansetron HCl 4 mg 10/03/17 13:24 10/07/17 10:39 Zofran Odt PO 04/01/18 13:23 4 mg Q4HRS PRN Administration Nausea/Vomiting, Use 1st Pantoprazole Sodium 40 mg 10/07/17 12:15 10/08/17 09:06 Protonix IVP 04/05/18 12:14 40 mg DAILY SHANICE Administration Polyethylene Glycol/Electrolytes 4,000 ml 10/08/17 16:00 Gavilyte - G PO 10/08/17 16:01 ONCE ONE Promethazine HCl 12.5 - 25 mg 10/03/17 13:24 10/07/17 20:47 Phenergan PO 04/01/18 13:23 25 mg Q6HRS PRN Administration Nausea/Vomiting, Use 2nd Promethazine HCl 6.25 - 25 mg 10/03/17 14:30 10/07/17 11:24 Phenergan IVP 04/01/18 13:23 25 mg Q6HRS PRN Administration Nausea/Vomiting, Use 2nd Discontinued Medications Generic Name Dose Route Start Last Admin Trade Name Maggy PRN Reason Stop Dose Admin Fentanyl Confirm 10/04/17 09:27 10/04/17 10:19 Sublimaze Administered 10/04/17 09:28 100 mcg Dose Administration 200 mcg .ROUTE .STK-MED ONE Gadobutrol Confirm 10/05/17 10:07 Gadavist 1 Mmol/Ml Administered 10/05/17 10:08 Dose 10 ml IVP .STK-MED ONE Hydromorphone HCl 0.2 - 1 mg 10/04/17 09:12 10/05/17 12:25 Dilaudid IVP 10/14/17 09:11 0.5 mg Q2HRS PRN Administration Pain, Severe Unable to Take PO Hydromorphone HCl 2 mg 10/04/17 09:12 10/07/17 10:39 Dilaudid PO 10/14/17 09:11 2 mg Q4HRS PRN Administration Pain, Severe Able to Take PO Sodium Chloride 1,000 mls @ 0 mls/hr 10/03/17 11:42 10/03/17 11:53 Ns IV 10/03/17 11:43 1,000 mls EDNOW ONE Administration Protocol Wide Open Methocarbamol 1,000 mg/ Sodium 60 mls @ 240 mls/hr 10/04/17 00:05 10/04/17 01 :06 Chloride IVP 10/04/17 00:19 60 mls ONCE ONE Administration Sodium Chloride 500 mls @ 0 mls/hr 10/04/17 09:00 10/04/17 08:37 Ns IV 10/04/17 09:01 500 mls ONCE ONE Administration As Directed Cefoxitin Sodium 2 gm/ Sodium 100 mls @ 200 mls/hr 10/04/17 14:30 10/05/17 12 :26 Chloride IV 11/03/17 14:29 100 mls Q6HRS SHANICE Administration Protocol Ceftriaxone Sodium 2 gm/ 20 mls @ 300 mls/hr 10/05/17 22:00 10/07/17 22:55 Sterile Water IV 11/04/17 21:59 20 mls DAILY@2200 SHANICE Administration Iopamidol Confirm 10/05/17 16:28 Isovue-300 Administered 10/05/17 16:29 Dose 100 ml .ROUTE .STK-MED ONE Ketamine HCl 9.4 mg 10/03/17 12:24 10/03/17 12:34 Ketamine 0.2 mg/kg (9.4 mg) 10/03/17 12:25 9.4 mg IVP Administration EDNOW ONE Ketorolac Tromethamine 15 mg 10/03/17 13:02 10/03/17 13:04 Toradol IVP 10/03/17 13:03 15 mg EDNOW ONE Administration Ketorolac Tromethamine 30 mg 10/03/17 13:35 10/07/17 20:45 Toradol IVP 10/08/17 13:34 30 mg Q6HRS PRN Administration Pain, Severe Midazolam HCl Confirm 10/04/17 09:27 10/04/17 10:19 Versed Administered 10/04/17 09:28 4 mg Dose Administration 10 mg .ROUTE .STK-MED ONE Promethazine HCl 6.25 - 12.5 mg 10/03/17 13:24 Phenergan IVP 04/01/18 13:23 Q6HRS PRN Nausea/Vomiting, Use 2nd Physical Exam - Physical Exam General Appearance: alert, no apparent distress Respiratory: lungs clear, normal breath sounds Abdomen: normal bowel sounds, non-tender, soft Neuro/Psych: alert, normal mood/affect, oriented x 3 ICD10 Worksheet Patient Problems: Problems Problem Status Onset Proctitis Acute Abdominal pain Acute Dysmenorrhea Acute Pelvic pain Acute
[2017-10-08] MEDS ORDERED: PEG 3350/NA SULF,BICARB,CL/KCL (GAVILYTE-G) 4000 ML BTL PO ONE (16:00)
[2017-10-08] MEDS: ONDANSETRON 4 MG/2 ML VIAL IVP PRN (19:38)
[2017-10-08] MEDS: PROMETHAZINE HCL 25 MG TAB PO PRN (22:59)
[2017-10-09] MEDS: CLOTRIMAZOLE 10 MG TROCHE PO SCH ×5 (04:35→21:23)
[2017-10-09] MEDS: PANTOPRAZOLE SODIUM 40 MG VIAL IVP SCH (09:59)
[2017-10-09] MEDS ORDERED: LR 1,000 ML IV ONE (10:51)
--- NOTE | 2017-10-09 11:34 | PDANEPAE ---
ANE History of Present Illness EGD/Colonoscopy to eval abdominal pain ANE Past Medical History - Cardiovascular History Hx Hypertension: No Hx Arrhythmias: No Hx Chest Pain: No Hx Coronary Artery / Peripheral Vascular Disease: No Hx CHF / Valvular Disease: No Hx Palpitations: No - Pulmonary History Hx COPD: No Hx Asthma/Reactive Airway Disease: No Hx Recent Upper Respiratory Infection: No Hx Oxygen in Use at Home: No Hx Sleep Apnea: No Sleep Apnea Screening Result - Last Documented: Negative - Neurologic History Hx Cerebrovascular Accident: No Hx Seizures: No Hx Dementia: No - Endocrine History Hx Diabetes: No - Renal History Hx Renal Disorders: No - Liver History Hx Hepatic Disorders: No - Neurological & Psychiatric Hx Hx Neurological and Psychiatric Disorders: No - Cancer History Hx Cancer: No - Congenital Disorder History Hx Congenital Disorders: No - GI History Hx Gastrointestinal Disorders: No - Other Health History Other Health History: pelvic pain, painful menses. Uses medical marijuana.Retained IUD. Endometriosis. - Chronic Pain History Chronic Pain: Yes (pelvic) - Surgical History Prior Surgeries: wisdom teeth at oral surgeon's office. ANE Review of Systems Review of Systems: - Exercise capacity Exercise capacity: >=4 METS ANE Patient History - Allergies Allergies/Adverse Reactions: amoxicillin Allergy (Verified 10/03/17 11:27) Other-Enter Comments Penicillins Allergy (Verified 10/03/17 11:27) Other-Enter Comments - Home Medications Home medications: home medication list seen and reviewed Home Medications: Etonogestrel [Nexplanon] 68 mg SQ ONCE 12/16/16 [Last Taken Unknown] Ondansetron HCl [Zofran] 4 mg PO Q4HRS PRN 10/03/17 [Last Taken Unknown] - NPO status NPO Status: no food or drink >8 hours NPO Since - Liquids (Date): 10/09/17 NPO Since - Liquids (Time): 00:00 NPO Since - Solids (Date): 10/09/17 NPO Since - Solids (Time): 00:00 - Anes Hx Anes Hx: post operative nausea and vomiting - Smoking Hx Smoking Status: Never smoked - Alcohol Use Alcohol Use: Sober - Family Anes Hx Family Anes Hx: none Family Hx Anesthesia Complications: not aware ANE Labs/Vital Signs - Labs Result Diagrams: 10/08/17 10:50 10/08/17 10:50 - Vital Signs Blood Pressure: 103/71 Heart Rate: 94 Respiratory Rate: 16 O2 Sat (%): 98 Height: 152.4 cm Weight: 50.893 kg ANE Physical Exam - Airway Neck exam: FROM Mallampati Score: Class 1 Mouth exam: normal dental/mouth exam - Pulmonary Pulmonary: no respiratory distress - Cardiovascular Cardiovascular: regular rate and rhythym - ASA Status ASA Status: I ANE Anesthesia Plan Anesthesia Plan: GA with mask Total IV Anesthesia: Yes
[2017-10-09] MEDS ORDERED: fentaNYL 100 MCG/2 ML INJ ONE (11:40)
[2017-10-09] MEDS ORDERED: PROPOFOL/EMULSION 500 MG/50 ML BOTTLE IV ONE (11:40)
--- NOTE | 2017-10-09 11:49 | ASMTCMCOM ---
CM Note CM Note Notes: JENNIFER spoke w/ Dr. Goldstein regarding d/c POC. Pt will have a colon and EGD today. Pt will d/c independent when medically stable. Pt will have outpatient follow up. CM available for changes. Plan: Independent Date Signed: 10/09/2017 11:48 AM Electronically Signed By:BOSTON Carbajal
--- NOTE | 2017-10-09 11:53 | GIREPORT ---
[facility] Surgical Services - Endoscopy Department Patient Name: Glenda Kate Procedure Date: 10/09/2017 11:21 AM Patient Type: Inpatient Attending MD/ ER Physician: Herman Mcdowell MD Procedure: Upper GI endoscopy Indications: Epigastric abdominal pain Providers: Herman Mcdowell MD Medicines: Propofol per Anesthesia Complications: No immediate complications. Description of Procedure: After obtaining informed consent, the endoscope was passed under direct vision. Throughout the procedure, the patient's blood pressure, pulse, and oxygen saturations were monitored continuously. The Endoscope was intro duced through the mouth, and advanced to the second part of duodenum. The [facility] er GI endoscopy was accomplished without difficulty. The patient tolerated th e procedure well. Findings: The examined esophagus was normal. One non-bleeding cratered gastric ulcer with no stigmata of bleeding wa s found in the gastric antrum and on the greater curvature of the gastric antrum. The lesion was 8 mm in largest dimension. Biopsies were taken w ith a cold forceps for histology. The examined duodenum was normal. Biopsies for histology were taken wit h a cold forceps for evaluation of celiac disease. Estimated Blood Loss: Estimated blood loss: none. Post Op Diagnosis: - Normal esophagus. - Non-bleeding gastric ulcer with no stigmata of bleeding. Biopsied. - Normal examined duodenum. Biopsied. Recommendation: - Await pathology results. - Use Protonix (pantoprazole) 40 mg PO BID. - Repeat upper endoscopy in 8 weeks to check healing. - Perform a colonoscopy today. - Thank you for allowing me to participate in the care of your patient. Attending Participation: I personally performed the entire procedure. Herman Mcdowell MD Herman Mcdowell MD 10/09/2017 11:53:04 AM This report has been signed electronicallyStmarilee Mcdowell MD Number of Addenda: 0 Note Initiated On: 10/09/2017 11:21 AM [email or web address]
[2017-10-09] MEDS ORDERED: LR 500 ML IV PRN (12:01)
[2017-10-09] MEDS ORDERED: oxyCODONE IR 5 MG TAB PO PRN (12:01)
[2017-10-09] MEDS ORDERED: ALBUTEROL 3 ML DEYVIAL IH PRN (12:01)
[2017-10-09] MEDS ORDERED: METOCLOPRAMIDE 10 MG/2 ML VIAL IVP PRN (12:01)
[2017-10-09] MEDS ORDERED: PHENYLEPHRINE HCL 100 MCG/ML SYR IVP PRN (12:01)
[2017-10-09] MEDS ORDERED: MEPERIDINE 25 MG/0.5 ML AMP IVP PRN (12:01)
[2017-10-09] MEDS ORDERED: ONDANSETRON 4 MG/2 ML VIAL IVP PRN (12:01)
[2017-10-09] MEDS ORDERED: LABETALOL HCL 5 MG/ML 20 ML MDV IVP PRN (12:01)
[2017-10-09] MEDS ORDERED: NALOXONE HCL 0.4 MG/ML INJ IVP PRN (12:01)
[2017-10-09] MEDS ORDERED: DEXAMETHASONE 4 MG/ML VIAL IVP PRN (12:01)
[2017-10-09] MEDS ORDERED: fentaNYL 100 MCG/2 ML INJ IVP PRN (12:01)
[2017-10-09] MEDS ORDERED: PROMETHAZINE HCL 25 MG/ML INJ IVP PRN (12:01)
--- NOTE | 2017-10-09 12:13 | GIREPORT ---
[facility] Surgical Services - Endoscopy Department Patient Name: Glenda Kate Procedure Date: 10/09/2017 11:39 AM Patient Type: Inpatient Attending MD/ ER Physician: Herman Mcdowell MD Procedure: Colonoscopy Indications: Generalized abdominal pain, Clinically significant diarrhea of unexplai elfego origin Providers: Herman Mcdowell MD Medicines: Propofol per Anesthesia Complications: No immediate complications. Description of Procedure: After obtaining informed consent, the scope was passed under direct vis ion. Throughout the procedure, the patient's blood pressure, pulse, and oxyg en saturations were monitored continuously. The Colonoscope was introduced through the anus and advanced to the terminal ileum. The colonoscopy wa s performed without difficulty. The patient tolerated the procedure well. The quality of the bowel preparation was good. The terminal ileum, ileoceca l valve, appendiceal orifice, and rectum were photographed. Findings: The terminal ileum appeared normal. Two ulcers were found in the rectum. No bleeding was present. Biopsies were taken with a cold forceps for histology. The area from sigmoid to cecum appeared normal. Biopsies for histology were taken with a cold forceps from the ascending colon for evaluation of microscopic colitis. The exam was otherwise without abnormality. Estimated Blood Loss: Estimated blood loss: none. Post Op Diagnosis: - The examined portion of the ileum was normal. - Two ulcers in the rectum. Biopsied. - The sigmoid to cecum is normal. Biopsied. - The examination was otherwise normal. Recommendation: - Advance diet as tolerated. - Await pathology results. - Thank you for allowing me to participate in the care of your patient. Attending Participation: I personally performed the entire procedure. Herman Mcdowell MD Herman Mcdowell MD 10/09/2017 12:12:24 PM This report has been signed electronicallyStmarilee Mcdowell MD Number of Addenda: 0 Note Initiated On: 10/09/2017 11:39 AM Total Procedure Duration Time 0 hours 9 minutes 45 seconds [email or web address]
[2017-10-09] MEDS: DOXYCYCLINE HYCLATE 100 MG CAP/TAB PO SCH ×2 (13:27→21:23)
[2017-10-09] MEDS: ONDANSETRON 4 MG/2 ML VIAL IVP PRN (14:44)
--- NOTE | 2017-10-09 16:17 | PCMIDPN ---
Assessment/Plan: # Fever, associated with abdominal pain, nodular skin lesions (bx c/w erythema nodosum), B lower lobe infiltrates w small effusions, rectal ulcerations now small gastric ulceration. Patient is generally feeling better, no high fever since 10/05. Interesting exposure to ferret --Dr Sylvester order Resp Panel but was not collected. Also consider infectious etiology of mycoplasma PNA which can also be associated with a variety of skin lesions. Added on serologic testing, although fraught with difficult interpretation --continue doxycycline --encouraged patient that needs to have adequate PO intake for discharge --start PPI BID per GI recs --reviewed test results w patient Negative tests: HIV load, HIV antibody, leptospira, Bartonella, EBV, CMV, HSV, blood cx, gonorrhea, chlamydia, syphilis, multiple autoimmune tests, stool PCR Pending tests: [place], tissue transglutamin, porphyrins, biopsies from GI procedures today Meds Doxycycline 100mg BID #5 Subjective: Still with mid epigastric pain, anorexia. Generally feels better and is hoping to be discharged tomorrow. Myalgias improved. Still with chills intermittently. Objective: Vital Signs Temp Pulse Resp BP Pulse Ox 36.7 C 94 20 120/87 H 98 10/09/17 12:46 10/09/17 11:34 10/09/17 12:41 10/09/17 12:41 10/09/17 12:41 Microbiology 10/03/17 20:04 Blood Culture - Final Blood 10/03/17 20:04 Blood Culture - Final Blood Laboratory Results 10/08/17 10:50 10/08/17 10:50 10/08/17 10/09/17 10/10/17 05:59 05:59 05:59 Intake Total 857 1620 600 Output Total 200 0 Balance 657 1620 600 ESR 6 MM/HR (0-20) 10/03/17 15:00 C-Reactive Protein 182.0 mg/L (<10.0) H 10/06/17 04:50 - Physical Exam General Appearance: alert, no apparent distress EENT: No thrush Respiratory: lungs clear, No accessory muscle use Neck: supple Cardiac/Chest: regular rate, rhythm Extremities: No pedal edema Abdomen: normal bowel sounds, non-tender, soft, other (mild discomfort to palpation of mid-epigastrum) Pelvic Exam: No wagoner Skin: warm/dry, other (few inflammatory nodules R thigh), No diaphoresis Neuro/Psych: alert, normal mood/affect, oriented x 3 - Time Spent With Patient Time Spent with Patient: greater than 35 minutes Time Spent with Patient: Greater than 35 minutes spent on this patients care, greater than 50% of time spent counseling, educating, and coordinating care regarding the above mentioned plan. ICD10 Worksheet Patient Problems: Problems Problem Status Onset Proctitis Acute Abdominal pain Acute Dysmenorrhea Acute Pelvic pain Acute
[2017-10-09] MEDS: NS 1,000 ML IV SCH (17:17)
--- NOTE | 2017-10-09 18:56 | HOSPPROG ---
Hospitalist Progress Note Assessment/Plan: Assessment/Plan: 22-year-old female presents with fever, rash and acute on chronic abdominal pain , found to have acute proctitis, SIRS, and GI ulcerations Plan: # Abdominal pain. 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 Present on CT, ulcerations on flex sig and colonoscopy, no other e/ o inflammatory bowel -appreciate ongoing ID consult, de-escalated Abx to doxy # GI ulcerations. Scattered w/ single upper in gastric antrum and two lower in rectum, unclear if e/o IBD -per Dr. Mcdowell, start PPI bid and repeat scope in 8 weeks # SIRS. Patient w/ e/o auto-immune inflammatory process, neg ALLAN, persistently elevated CRP, other markers pending -recommend outpatient rheum f/u # Erythema nodosum. Positive on biopsy, unclear if 2/2 infxn which has now been cleared vs. IBD Prophylaxis. Low risk patient, SCDs Code. Full Disposition. Cont inpt, needs to safely advance diet Subjective: lethargic s/p EGD/colon, vomited up big lunch Objective: Vital Signs Temp Pulse Resp BP Pulse Ox 37.7 C 71 12 101/65 96 10/09/17 16:00 10/09/17 16:00 10/09/17 16:00 10/09/17 16:00 10/09/17 16:00 Microbiology 10/03/17 20:04 Blood Culture - Final Blood 10/03/17 20:04 Blood Culture - Final Blood Laboratory Results 10/08/17 10:50 10/08/17 10:50 10/08/17 10/09/17 10/10/17 05:59 05:59 05:59 Intake Total 857 1620 840 Output Total 200 0 Balance 657 1620 840 - Pending Discharge Pending Discharge Within 24 Hours: Yes Pending Discharge Date: 10/10/17 Pending Discharge Time: 11:00 - Physical Exam Constitutional: no apparent distress, appears nourished, not in pain, No uncomfortable Cardiovascular: regular rate and rhythym, no murmur, rub, or gallop Respiratory: no respiratory distress, no rales or rhonchi, clear to auscultation Gastrointestinal: normoactive bowel sounds, soft, non-tender abdomen, no palpable masses, No distension Psychiatric: interacting appropriately, not anxious, not encephalopathic, thought process linear, flat affect ICD10 Worksheet Patient Problems: Problems Problem Status Onset Abdominal pain Acute Proctitis Acute Dysmenorrhea Acute Pelvic pain Acute
[2017-10-09] MEDS: PANTOPRAZOLE SODIUM 40 MG TAB PO SCH (21:23)
[2017-10-09] MEDS: HYDROmorphONE/DILAUDID 2 MG TAB PO PRN (21:28)
[2017-10-10] MEDS: NS 1,000 ML IV SCH (06:15)
--- NOTE | 2017-10-10 07:33 | SOAPPROG ---
SOAP Progress Note Assessment/Plan: Assessment: E Nodosum, hx of endometriosis and history of altered bowel habits and intermittent abdominal pain. Has had fevers. No fevers for several days. EGD with (no reported NSAID use), also with two discrete deep rectal ulcers ( not proctitis) on colonoscopy. Biopsies pending. Extensive ID work negative for infectious etiologies. Unusual presentation, but unifying diagnosis would potentially be IBD, Crohn's Disease. Plan: 1. Await biopsy results 2. Evaluate SB with MRE 3. If above unremarkable would recommend [facility] testing for IBD 10/10/17 07:28 Subjective: CC: Abdominal pain and fever No diarrhea, no significant abdominal pain, this am. Objective: Vital Signs Temp Pulse Resp BP Pulse Ox 36.6 C 85 16 99/56 L 95 10/09/17 23:18 10/09/17 23:18 10/09/17 23:18 10/09/17 23:18 10/09/17 23:18 Microbiology 10/03/17 20:04 Blood Culture - Final Blood 10/03/17 20:04 Blood Culture - Final Blood Laboratory Results 10/08/17 10:50 10/08/17 10:50 10/09/17 10/10/17 10/11/17 05:59 05:59 05:59 Intake Total 1620 1540 Output Total 0 Balance 1620 1540 Generic Name Dose Route Start Last Admin Trade Name Freq PRN Reason Stop Dose Admin Acetaminophen 650 mg 10/03/17 13:24 10/05/17 02:54 Tylenol PO 04/01/18 13:23 650 mg Q4HRS PRN Administration Pain, Mild/Fever, Can Take PO Alteplase, Recombinant 2 mg 10/06/17 10:03 Cathflo Activase IVP 04/04/18 10:02 PRN PRN Per PICC line policy Clotrimazole 10 mg 10/06/17 14:00 10/09/17 21:23 Mycelex PO 11/05/17 13:59 10 mg 5XD SHANICE Administration Protocol Dicyclomine HCl 20 mg 10/03/17 13:26 10/05/17 13:20 Bentyl PO 04/01/18 15:59 20 mg QID PRN Administration Pain, Breakthrough Diphenhydramine HCl 25 - 50 mg 10/03/17 13:24 Benadryl PO 04/01/18 13:23 Q6HRS PRN Itching Doxycycline Hyclate 100 mg 10/04/17 14:15 10/09/17 21:23 Doxycycline Hyclate PO 11/03/17 14:14 100 mg BID SHANICE Administration Protocol Haloperidol 0.5 - 2.5 mg 10/03/17 14:27 Haldol PO 04/01/18 14:26 Q6HRS PRN Nausea/Vomiting, Use 1st Haloperidol Lactate 0.5 - 2.5 mg 10/03/17 14:27 10/04/17 01:55 Haldol Injection IVP 04/01/18 14:26 0.5 mg Q6HRS PRN Administration Nausea/Vomiting, Can't Take PO Hydromorphone HCl 2 mg 10/07/17 13:00 10/09/17 21:28 Dilaudid PO 10/14/17 09:11 2 mg Q6H PRN Administration Pain, Severe Able to Take PO Sodium Chloride 1,000 mls @ 75 mls/hr 10/03/17 13:30 10/10/17 06:15 Ns IV 04/01/18 13:29 1,000 mls CONT SHANICE Administration Ibuprofen 600 mg 10/03/17 13:35 Motrin PO 04/01/18 13:34 Q6HRS PRN Pain, Mild Lorazepam 0.5 - 1 mg 10/03/17 13:24 10/05/17 17:37 Ativan Injection IVP 04/01/18 13:23 1 mg Q8HRS PRN Administration Anxiety, Unable to Take PO Ondansetron HCl 4 mg 10/03/17 13:24 10/09/17 14:44 Zofran IVP 04/01/18 13:23 4 mg Q4HRS PRN Administration Nausea/Vomiting, Can't Take PO Ondansetron HCl 4 mg 10/03/17 13:24 10/07/17 10:39 Zofran Odt PO 04/01/18 13:23 4 mg Q4HRS PRN Administration Nausea/Vomiting, Use 1st Pantoprazole Sodium 40 mg 10/09/17 21:00 10/09/17 21:23 Protonix PO 04/07/18 20:59 40 mg BID SHANICE Administration Promethazine HCl 12.5 - 25 mg 10/03/17 13:24 10/08/17 22:59 Phenergan PO 04/01/18 13:23 12.5 mg Q6HRS PRN Administration Nausea/Vomiting, Use 2nd Promethazine HCl 6.25 - 25 mg 10/03/17 14:30 10/07/17 11:24 Phenergan IVP 04/01/18 13:23 25 mg Q6HRS PRN Administration Nausea/Vomiting, Use 2nd Discontinued Medications Generic Name Dose Route Start Last Admin Trade Name Dadaq PRN Reason Stop Dose Admin Albuterol 3 ml 10/09/17 12:01 Proventil Neb IH 10/09/17 13:01 Q10M PRN PACU, Wheezing Dexamethasone 4 mg 10/09/17 12:01 Decadron Injection IVP 10/09/17 13:01 ONCE PRN PACU, Nausea/Vomiting Ephedrine Sulfate 25 mg 10/09/17 12:01 Ephedrine Sulfate IM 10/09/17 13:01 ONCE PRN PACU, Nausea/Vomiting Fentanyl Confirm 10/04/17 09:27 10/04/17 10:19 Sublimaze Administered 10/04/17 09:28 100 mcg Dose Administration 200 mcg .ROUTE .STK-MED ONE Fentanyl Confirm 10/09/17 11:40 Sublimaze Administered 10/09/17 11:41 Dose 100 mcg .ROUTE .STK-MED ONE Fentanyl 25 - 100 mcg 10/09/17 12:01 Sublimaze IVP 10/09/17 13:01 Q5M PRN PACU, IMMEDIATE Pain control Gadobutrol Confirm 10/05/17 10:07 Gadavist 1 Mmol/Ml Administered 10/05/17 10:08 Dose 10 ml IVP .STK-MED ONE Hydromorphone HCl 0.2 - 1 mg 10/04/17 09:12 10/05/17 12:25 Dilaudid IVP 10/14/17 09:11 0.5 mg Q2HRS PRN Administration Pain, Severe Unable to Take PO Hydromorphone HCl 2 mg 10/04/17 09:12 10/07/17 10:39 Dilaudid PO 10/14/17 09:11 2 mg Q4HRS PRN Administration Pain, Severe Able to Take PO Sodium Chloride 1,000 mls @ 0 mls/hr 10/03/17 11:42 05/31/18 11:53 Ns IV 10/03/17 11:43 1,000 mls EDNOW ONE Administration Protocol Wide Open Methocarbamol 1,000 mg/ Sodium 60 mls @ 240 mls/hr 10/04/17 00:05 10/04/17 01 :06 Chloride IVP 10/04/17 00:19 60 mls ONCE ONE Administration Sodium Chloride 500 mls @ 0 mls/hr 10/04/17 09:00 10/04/17 08:37 Ns IV 10/04/17 09:01 500 mls ONCE ONE Administration As Directed Cefoxitin Sodium 2 gm/ Sodium 100 mls @ 200 mls/hr 10/04/17 14:30 10/05/17 12 :26 Chloride IV 11/03/17 14:29 100 mls Q6HRS SHANICE Administration Protocol Ceftriaxone Sodium 2 gm/ 20 mls @ 300 mls/hr 10/05/17 22:00 10/07/17 22:55 Sterile Water IV 11/04/17 21:59 20 mls DAILY@2200 SHANICE Administration Lactated Ringer's 1,000 mls @ 125 mls/hr 10/09/17 10:51 10/09/17 14:56 Lr IV 10/09/17 18:50 Not Given ONCE ONE Lactated Ringer's 500 mls @ 0 mls/hr 10/09/17 12:01 Lr IV 10/09/17 13:01 PRN PRN PACU, Nausea/Vomiting Post-Op Wide Open Iopamidol Confirm 10/05/17 16:28 Isovue-300 Administered 10/05/17 16:29 Dose 100 ml .ROUTE .STK-MED ONE Ketamine HCl 9.4 mg 10/03/17 12:24 10/03/17 12:34 Ketamine 0.2 mg/kg (9.4 mg) 10/03/17 12:25 9.4 mg IVP Administration EDNOW ONE Ketorolac Tromethamine 15 mg 10/03/17 13:02 10/03/17 13:04 Toradol IVP 10/03/17 13:03 15 mg EDNOW ONE Administration Ketorolac Tromethamine 30 mg 10/03/17 13:35 10/07/17 20:45 Toradol IVP 10/08/17 13:34 30 mg Q6HRS PRN Administration Pain, Severe Labetalol HCl 5 - 10 mg 10/09/17 12:01 Trandate Injection IVP 10/09/17 13:01 Q10M PRN PACU, Hypertension Meperidine HCl 12.5 - 25 mg 10/09/17 12:01 Demerol IVP 10/09/17 13:01 Q10M PRN PACU, shivering/rigors Metoclopramide HCl 10 mg 10/09/17 12:01 Reglan Injection IVP 10/09/17 13:01 ONCE PRN PACU, Nausea/Vomiting Midazolam HCl Confirm 10/04/17 09:27 10/04/17 10:19 Versed Administered 10/04/17 09:28 4 mg Dose Administration 10 mg .ROUTE .STK-MED ONE Naloxone HCl 0.1 mg 10/09/17 12:01 Narcan IVP 10/09/17 13:01 Q2M PRN PACU Resp Rate <10/min Ondansetron HCl 2 - 4 mg 10/09/17 12:01 Zofran IVP 10/09/17 13:01 Q10M PRN PACU, Nausea/Vomiting Oxycodone HCl 5 - 10 mg 10/09/17 12:01 Oxycodone Ir PO 10/09/17 13:01 Q4HRS PRN PACU, Pain Severe Pantoprazole Sodium 40 mg 10/07/17 12:15 10/09/17 09:59 Protonix IVP 04/05/18 12:14 40 mg DAILY SHANICE Administration Phenylephrine HCl 100 mcg 10/09/17 12:01 Neosynephrine IVP 10/09/17 13:01 Q2M PRN PACU, Hypotension Polyethylene Glycol/Electrolytes 4,000 ml 10/08/17 16:00 10/08/17 15:18 Gavilyte - G PO 10/08/17 16:01 4,000 ml ONCE ONE Administration Promethazine HCl 6.25 - 12.5 mg 10/03/17 13:24 Phenergan IVP 04/01/18 13:23 Q6HRS PRN Nausea/Vomiting, Use 2nd Promethazine HCl 6.25 - 12.5 mg 10/09/17 12:01 Phenergan IVP 10/09/17 13:01 Q5M PRN PACUNausea/Vomiting, Unable PO Propofol Confirm 10/09/17 11:40 Diprivan 10 Mg/Ml (Premix) Administered 10/09/17 11:41 Dose 500 mg IV .STK-MED ONE Physical Exam - Physical Exam General Appearance: alert, no apparent distress Respiratory: lungs clear, normal breath sounds Cardiac/Chest: regular rate, rhythm Abdomen: normal bowel sounds, non-tender, soft Skin: normal color, warm/dry Neuro/Psych: alert, normal mood/affect, oriented x 3 ICD10 Worksheet Patient Problems: Problems Problem Status Onset Proctitis Acute Abdominal pain Acute Dysmenorrhea Acute Pelvic pain Acute
[2017-10-10] MEDS: DOXYCYCLINE HYCLATE 100 MG CAP/TAB PO SCH ×2 (08:12→21:04)
[2017-10-10] MEDS: PANTOPRAZOLE SODIUM 40 MG TAB PO SCH ×2 (08:13→21:04)
[2017-10-10] MEDS: CLOTRIMAZOLE 10 MG TROCHE PO SCH (08:41)
--- NOTE | 2017-10-10 09:05 | PCMIDPN ---
Assessment/Plan: 1. History of Fever, abdominal pain, oral/rectal ulcers and rash in an otherwise healthy 22-year-old female: Events of past 48 hr reviewed. Patient has a gastric ulcer seen on EGD, and ulcerations in her rectum as per previous. Scheduled to have MR IV abdomen today to further evaluate for evidence of Crohn's disease. Agree that this would be the unifying diagnosis given E nodosum lesions, ulcerations from mouth to anus. I cannot find any evidence of an infectious cause at this point. Will continue doxycycline 1 more day to complete 7 days of therapy. Interestingly, doxycycline also has anti-inflammatory properties which potentially may have helped. Expressed the importance of following up with Gastroenterology. I do not feel that she needs to follow up with us, per se. Thank you very much for allowing us to participate in her care. Will sign off. Case discussed with Dr. Goldstein. Over 25 min was spent with this patient today. Subjective: Feels much better. NPO for MRI of the abdomen to further evaluate for evidence of Crohn's. Objective: Doxycycline 100 mg p.o. Twice daily day 6 No fevers Vital Signs Temp Pulse Resp BP Pulse Ox 36.6 C 85 16 99/56 L 95 10/09/17 23:18 10/09/17 23:18 10/09/17 23:18 10/09/17 23:18 10/09/17 23:18 Microbiology 10/03/17 20:04 Blood Culture - Final Blood 10/03/17 20:04 Blood Culture - Final Blood Laboratory Results 10/10/17 08:10 10/08/17 10:50 10/09/17 10/10/17 10/11/17 05:59 05:59 05:59 Intake Total 1620 1540 Output Total 0 Balance 1620 1540 ESR 21 MM/HR (0-20) H 10/10/17 08:10 C-Reactive Protein 33.8 mg/L (<10.0) H 10/10/17 08:10 All infectious workup thus far has been negative - Physical Exam General Appearance: alert, no apparent distress EENT: other (No oral ulcerations or evidence of thrush whatsoever) Respiratory: chest non-tender, lungs clear Cardiac/Chest: regular rate, rhythm Abdomen: non-tender, soft Skin: other (e. nodosum lesions have completely resolved, pustular lesions on malar aspect of her face and cheeks are practically gone. Rash on her neck and chest gone.) ICD10 Worksheet Patient Problems: Problems Problem Status Onset Proctitis Acute Abdominal pain Acute Dysmenorrhea Acute Pelvic pain Acute
[2017-10-10] MEDS ORDERED: GADOBUTROL 10 ML VIAL IVP ONE (10:53)
[2017-10-10] MEDS ORDERED: GLUCAGON HCL 0.3 MG in SYRINGE 0.3 ML IVP ONE (11:30)
[2017-10-10] MEDS: PROMETHAZINE HCL 25 MG/ML INJ IVP PRN (13:42)
[2017-10-10] MEDS: HYDROmorphONE/DILAUDID 2 MG TAB PO PRN ×2 (13:42→22:10)
--- NOTE | 2017-10-10 15:44 | ASMTCMCOM ---
CM Note CM Note Notes: Chart reviewed. 22 year old undergoing gastroenterology evaluation for IBS vs Crohns. No identified needs at this time. CM available should needs arise. Plan: Likely home independently. Date Signed: 10/10/2017 03:43 PM Electronically Signed By:Rosa Bailon RN
[2017-10-10 15:54] LABS: FRANCISELLA (TULAREMIA) AB <1:20
--- NOTE | 2017-10-10 18:47 | HOSPPROG ---
Hospitalist Progress Note Assessment/Plan: Assessment/Plan: 22-year-old female presents with fever, rash and acute on chronic abdominal pain , found to have acute SIRS and GI ulcerations Plan: # Abdominal pain. 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 Present on CT, ulcerations on flex sig and colonoscopy, no other e/ o inflammatory bowel -d/w Dr. Sylvester, she recs 1 additional day of doxy # GI ulcerations. Acute, new problem, further w/u indicated. Scattered w/ single upper in gastric antrum and two lower in rectum, unclear if e/o IBD -d/w Dr. Mcdowell, MR enterography performed today, recs biopsy f/u and possible prometheus testing thereafter -cont PPI bid # SIRS. Patient w/ e/o auto-immune inflammatory process, neg ALLAN, persistently elevated CRP, other markers pending -recommend outpatient rheum f/u # Erythema nodosum. Positive on biopsy, unclear if 2/2 infxn which has now been cleared vs. IBD Prophylaxis. Low risk patient, SCDs Code. Full Disposition. ADD 10/11, pending tolerance of PO diet. Subjective: ongoing abd pain/nausea, just began trialing PO s/p enterography, having loose BMs Objective: Vital Signs Temp Pulse Resp BP Pulse Ox 36.9 C 96 16 116/76 97 10/10/17 09:20 10/10/17 09:20 10/10/17 09:20 10/10/17 09:20 10/10/17 09:20 Laboratory Results 10/10/17 08:10 10/08/17 10:50 10/09/17 10/10/17 10/11/17 05:59 05:59 05:59 Intake Total 1620 1540 Output Total 0 Balance 1620 1540 - Pending Discharge Pending Discharge Within 24 Hours: Yes Pending Discharge Date: 10/11/17 Pending Discharge Time: 11:00 - Physical Exam Constitutional: no apparent distress, uncomfortable, other (thin appearing), No not in pain (mild) Cardiovascular: regular rate and rhythym, no murmur, rub, or gallop Respiratory: no respiratory distress, no rales or rhonchi, clear to auscultation Gastrointestinal: normoactive bowel sounds, soft, non-tender abdomen, no palpable masses, No guarding, No distension Neurologic: AAOx3 Psychiatric: interacting appropriately, not anxious, not encephalopathic, thought process linear, flat affect ICD10 Worksheet Patient Problems: Problems Problem Status Onset Abdominal pain Acute Proctitis Acute Dysmenorrhea Acute Pelvic pain Acute
[2017-10-11 08:01] VITALS: BP 101/77
[2017-10-11] MEDS: DOXYCYCLINE HYCLATE 100 MG CAP/TAB PO SCH (09:23)
[2017-10-11] MEDS: PANTOPRAZOLE SODIUM 40 MG TAB PO SCH (09:24)
[2017-10-11] MEDS: ONDANSETRON DISINTEGRATING 4 MG TAB PO PRN (09:26)
[2017-10-11] MEDS: HYDROmorphONE/DILAUDID 2 MG TAB PO PRN (09:26)
--- NOTE | 2017-10-11 10:01 | SOAPPROG ---
SOAP Progress Note Assessment/Plan: Assessment: Patient is clinically improved. Unclear etiology of presenting febrile illness, rash and erythema nodosum, ? viral. No evidence of Crohn's disease on gastric or rectal biopsies. Rectal ulcer more c/w prolapse. Patient does give a history of straining on her stool. Normal MRE, would not purse Prometheus testing based on these findings. GI symptoms more c/w functional bowel with crampy abdominal pain and altered bowel habits with normal endoscopic and imaging evaluation. Plan: 1. PPI x 6 weeks 2. High fiber diet and Miralax for significant constipation. 3. Supplements with Probiotic and OTC IB Guard (peppermint) 4. Could also treat crampy abdominal pain with dicyclomine 10 - 20 mg every 6 - 8 hours as needed 5. Recommend follow up with PCP. If needs GI follow up can follow up with Dr. Philippe. Please call with further questions 10/11/17 09:54 Subjective: CC: Febrile illness, abdominal pain Feeling much better, no further fevers. Tolerating PO Objective: Vital Signs Temp Pulse Resp BP Pulse Ox 37.3 C 123 H 16 101/77 99 10/11/17 07:59 10/11/17 07:59 10/11/17 07:59 10/11/17 07:59 10/11/17 07:59 Laboratory Results 10/10/17 08:10 10/08/17 10:50 10/10/17 10/11/17 10/12/17 05:59 05:59 05:59 Intake Total 1540 Output Total 0 Balance 1540 Generic Name Dose Route Start Last Admin Trade Name Maggy PRN Reason Stop Dose Admin Acetaminophen 650 mg 10/03/17 13:24 10/05/17 02:54 Tylenol PO 04/01/18 13:23 650 mg Q4HRS PRN Administration Pain, Mild/Fever, Can Take PO Alteplase, Recombinant 2 mg 10/06/17 10:03 Cathflo Activase IVP 04/04/18 10:02 PRN PRN Per PICC line policy Dicyclomine HCl 20 mg 10/03/17 13:26 10/05/17 13:20 Bentyl PO 04/01/18 15:59 20 mg QID PRN Administration Pain, Breakthrough Diphenhydramine HCl 25 - 50 mg 10/03/17 13:24 Benadryl PO 04/01/18 13:23 Q6HRS PRN Itching Doxycycline Hyclate 100 mg 10/04/17 14:15 10/11/17 09:23 Doxycycline Hyclate PO 11/03/17 14:14 100 mg BID SHANICE Administration Protocol Haloperidol 0.5 - 2.5 mg 10/03/17 14:27 Haldol PO 04/01/18 14:26 Q6HRS PRN Nausea/Vomiting, Use 1st Haloperidol Lactate 0.5 - 2.5 mg 10/03/17 14:27 10/04/17 01:55 Haldol Injection IVP 04/01/18 14:26 0.5 mg Q6HRS PRN Administration Nausea/Vomiting, Can't Take PO Hydromorphone HCl 2 mg 10/07/17 13:00 10/11/17 09:26 Dilaudid PO 10/14/17 09:11 2 mg Q6H PRN Administration Pain, Severe Able to Take PO Sodium Chloride 1,000 mls @ 75 mls/hr 10/03/17 13:30 10/10/17 06:15 Ns IV 04/01/18 13:29 1,000 mls CONT SHANICE Administration Ibuprofen 600 mg 10/03/17 13:35 Motrin PO 04/01/18 13:34 Q6HRS PRN Pain, Mild Lorazepam 0.5 - 1 mg 10/03/17 13:24 10/05/17 17:37 Ativan Injection IVP 04/01/18 13:23 1 mg Q8HRS PRN Administration Anxiety, Unable to Take PO Ondansetron HCl 4 mg 10/03/17 13:24 10/09/17 14:44 Zofran IVP 04/01/18 13:23 4 mg Q4HRS PRN Administration Nausea/Vomiting, Can't Take PO Ondansetron HCl 4 mg 10/03/17 13:24 10/11/17 09:26 Zofran Odt PO 04/01/18 13:23 4 mg Q4HRS PRN Administration Nausea/Vomiting, Use 1st Pantoprazole Sodium 40 mg 10/09/17 21:00 10/11/17 09:24 Protonix PO 04/07/18 20:59 40 mg BID SHANICE Administration Promethazine HCl 12.5 - 25 mg 10/03/17 13:24 10/08/17 22:59 Phenergan PO 04/01/18 13:23 12.5 mg Q6HRS PRN Administration Nausea/Vomiting, Use 2nd Promethazine HCl 6.25 - 25 mg 10/03/17 14:30 10/10/17 13:42 Phenergan IVP 04/01/18 13:23 12.5 mg Q6HRS PRN Administration Nausea/Vomiting, Use 2nd Discontinued Medications Generic Name Dose Route Start Last Admin Trade Name Freq PRN Reason Stop Dose Admin Albuterol 3 ml 10/09/17 12:01 Proventil Neb IH 10/09/17 13:01 Q10M PRN PACU, Wheezing Clotrimazole 10 mg 10/06/17 14:00 10/10/17 08:41 Mycelex PO 11/05/17 13:59 Not Given 5XD SHANICE Protocol Dexamethasone 4 mg 10/09/17 12:01 Decadron Injection IVP 10/09/17 13:01 ONCE PRN PACU, Nausea/Vomiting Ephedrine Sulfate 25 mg 10/09/17 12:01 Ephedrine Sulfate IM 10/09/17 13:01 ONCE PRN PACU, Nausea/Vomiting Fentanyl Confirm 10/04/17 09:27 10/04/17 10:19 Sublimaze Administered 10/04/17 09:28 100 mcg Dose Administration 200 mcg .ROUTE .STK-MED ONE Fentanyl Confirm 10/09/17 11:40 Sublimaze Administered 10/09/17 11:41 Dose 100 mcg .ROUTE .STK-MED ONE Fentanyl 25 - 100 mcg 10/09/17 12:01 Sublimaze IVP 10/09/17 13:01 Q5M PRN PACU, IMMEDIATE Pain control Gadobutrol Confirm 10/05/17 10:07 Gadavist 1 Mmol/Ml Administered 10/05/17 10:08 Dose 10 ml IVP .STK-MED ONE Gadobutrol Confirm 10/10/17 10:53 Gadavist 1 Mmol/Ml Administered 10/10/17 10:54 Dose 10 ml IVP .STK-MED ONE Hydromorphone HCl 0.2 - 1 mg 10/04/17 09:12 10/05/17 12:25 Dilaudid IVP 10/14/17 09:11 0.5 mg Q2HRS PRN Administration Pain, Severe Unable to Take PO Hydromorphone HCl 2 mg 10/04/17 09:12 10/07/17 10:39 Dilaudid PO 10/14/17 09:11 2 mg Q4HRS PRN Administration Pain, Severe Able to Take PO Sodium Chloride 1,000 mls @ 0 mls/hr 10/03/17 11:42 10/03/17 11:53 Ns IV 10/03/17 11:43 1,000 mls EDNOW ONE Administration Protocol Wide Open Methocarbamol 1,000 mg/ Sodium 60 mls @ 240 mls/hr 10/04/17 00:05 10/04/17 01 :06 Chloride IVP 10/04/17 00:19 60 mls ONCE ONE Administration Sodium Chloride 500 mls @ 0 mls/hr 10/04/17 09:00 10/04/17 08:37 Ns IV 10/04/17 09:01 500 mls ONCE ONE Administration As Directed Cefoxitin Sodium 2 gm/ Sodium 100 mls @ 200 mls/hr 10/04/17 14:30 10/05/17 12 :26 Chloride IV 11/03/17 14:29 100 mls Q6HRS SHANICE Administration Protocol Ceftriaxone Sodium 2 gm/ 20 mls @ 300 mls/hr 10/05/17 22:00 10/07/17 22:55 Sterile Water IV 11/04/17 21:59 20 mls DAILY@2200 SHANICE Administration Lactated Ringer's 1,000 mls @ 125 mls/hr 10/09/17 10:51 10/09/17 14:56 Lr IV 10/09/17 18:50 Not Given ONCE ONE Lactated Ringer's 500 mls @ 0 mls/hr 10/09/17 12:01 Lr IV 10/09/17 13:01 PRN PRN PACU, Nausea/Vomiting Post-Op Wide Open Glucagon 0.3 mg/ Syringe 0.3 mls @ 0 mls/hr 10/10/17 11:30 10/10/17 13:03 IVP 10/10/17 11:31 Not Given ONCE ONE As Directed Glucagon 0.3 mg/ Syringe 0.3 mls @ 0 mls/hr 10/10/17 11:30 10/10/17 13:03 IVP 10/10/17 11:31 Not Given ONCE ONE As Directed Iopamidol Confirm 10/05/17 16:28 Isovue-300 Administered 10/05/17 16:29 Dose 100 ml .ROUTE .STK-MED ONE Ketamine HCl 9.4 mg 10/03/17 12:24 10/03/17 12:34 Ketamine 0.2 mg/kg (9.4 mg) 10/03/17 12:25 9.4 mg IVP Administration EDNOW ONE Ketorolac Tromethamine 15 mg 10/03/17 13:02 10/03/17 13:04 Toradol IVP 10/03/17 13:03 15 mg EDNOW ONE Administration Ketorolac Tromethamine 30 mg 10/03/17 13:35 10/07/17 20:45 Toradol IVP 10/08/17 13:34 30 mg Q6HRS PRN Administration Pain, Severe Labetalol HCl 5 - 10 mg 10/09/17 12:01 Trandate Injection IVP 10/09/17 13:01 Q10M PRN PACU, Hypertension Meperidine HCl 12.5 - 25 mg 10/09/17 12:01 Demerol IVP 10/09/17 13:01 Q10M PRN PACU, shivering/rigors Metoclopramide HCl 10 mg 10/09/17 12:01 Reglan Injection IVP 10/09/17 13:01 ONCE PRN PACU, Nausea/Vomiting Midazolam HCl Confirm 10/04/17 09:27 10/04/17 10:19 Versed Administered 10/04/17 09:28 4 mg Dose Administration 10 mg .ROUTE .STK-MED ONE Naloxone HCl 0.1 mg 10/09/17 12:01 Narcan IVP 10/09/17 13:01 Q2M PRN PACU Resp Rate <10/min Ondansetron HCl 2 - 4 mg 10/09/17 12:01 Zofran IVP 10/09/17 13:01 Q10M PRN PACU, Nausea/Vomiting Oxycodone HCl 5 - 10 mg 10/09/17 12:01 Oxycodone Ir PO 10/09/17 13:01 Q4HRS PRN PACU, Pain Severe Pantoprazole Sodium 40 mg 10/07/17 12:15 10/09/17 09:59 Protonix IVP 12/01/18 12:14 40 mg DAILY SHANICE Administration Phenylephrine HCl 100 mcg 10/09/17 12:01 Neosynephrine IVP 10/09/17 13:01 Q2M PRN PACU, Hypotension Polyethylene Glycol/Electrolytes 4,000 ml 10/08/17 16:00 10/08/17 15:18 Gavilyte - G PO 10/08/17 16:01 4,000 ml ONCE ONE Administration Promethazine HCl 6.25 - 12.5 mg 10/03/17 13:24 Phenergan IVP 04/01/18 13:23 Q6HRS PRN Nausea/Vomiting, Use 2nd Promethazine HCl 6.25 - 12.5 mg 10/09/17 12:01 Phenergan IVP 10/09/17 13:01 Q5M PRN PACUNausea/Vomiting, Unable PO Propofol Confirm 10/09/17 11:40 Diprivan 10 Mg/Ml (Premix) Administered 10/09/17 11:41 Dose 500 mg IV .[facility]-MED ONE Physical Exam - Physical Exam General Appearance: alert Respiratory: lungs clear, normal breath sounds Cardiac/Chest: regular rate, rhythm Abdomen: normal bowel sounds, non-tender, soft Skin: normal color, warm/dry Neuro/Psych: alert, normal mood/affect, oriented x 3 ICD10 Worksheet Patient Problems: Problems Problem Status Onset Proctitis Acute Abdominal pain Acute Dysmenorrhea Acute Pelvic pain Acute
--- NOTE | 2017-10-11 16:50 | PDDCSUM ---
Discharge Summary Discharge Summary: DISCHARGE SUMMARY FOLLOW-UP ITEMS: Pending rheumatology and several infectious labs at time of discharge DATE OF ADMISSION: 10/03/2017 DATE OF DISCHARGE: 10/11/2017 DISCHARGE DIAGNOSES: 1. Acute on chronic abdominal pain 2. Acute upper and lower gastrointestinal ulcerations 3. Possible acute proctitis 4. Systemic inflammatory response syndrome 5. Erythema nodosum 6. 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 CONSULTATIONS: Gastroenterology, Infectious Disease, General surgery PROCEDURES / IMAGING: Skin biopsy with sutures placed, colonoscopy and upper endoscopy, MR enterography CHIEF COMPLAINT: Acute abdominal pain, vomiting SUBJECTIVE: Patient is feeling well at time discharge, she continues to experience some intermittent abdominal discomfort as well as nausea, but she is tolerating an oral diet and she is moving her bowels PHYSICAL EXAM ON DISCHARGE: Systolic blood pressure is 100, heart rate 90, afebrile overnight, satting on room air, alert awake oriented x3, no apparent distress, patient is thin appearing LABS ON DISCHARGE: CRP 34, peaked at 182, pathology of her upper GI ulceration demonstrating gastritis, negative H pylori, lower GI ulcers demonstrate no evidence of lymphocytes, benign-appearing ulcerations HOSPITAL COURSE BY PROBLEM: 1. Acute on chronic abdominal pain. The patient presented with acute on chronic abdominal pain with associated nausea vomiting and poor oral intake, and I suspect that she was experiencing GI symptoms related to a pro inflammatory state secondary to a likely viral precipitant, resulting in upper and lower GI ulcers, erythema nodosum, elevated inflammatory markers. That being said, I believe that her abdominal symptoms were height and by an underlying chronic functional pain syndrome which seems consistent with previous evaluations by the obstetric group at our hospital. The patient continued to experience abdominal symptoms throughout the course of her hospitalization and we treated them supportively with pain medications, antiemetics, supportive IV fluids. They improved as her inflammatory markers declined, and she is currently stable on oral medications for discharge. 2. Upper and lower gastrointestinal ulcerations. Patient experienced acute ulcerations in the stomach as well as the rectum, and she underwent EGD and colonoscopy with biopsies demonstrating benign pathology. Dr. Herman Mcdowell recommended that the patient remain on proton pump inhibitor for 6 weeks for her upper GI ulcer. He also performed an MR enterography to rule out evidence of underlying inflammatory bowel disease, and her MR enterography was normal. Although inflammatory bowel disease would have been a unifying diagnosis for the patient's abdominal symptoms, ulcerations, erythema nodosum, it does not appear that the patient has active Crohn's or ulcerative colitis. These ulcerations were most likely secondary to autoimmune inflammation triggered by a viral precipitant. 3. Systemic inflammatory response syndrome. The patient initially experienced fever, tachycardia, tachypnea, without clearly identifiable infection, and was most likely secondary to a pro inflammatory state from a viral precipitant with significantly elevated CRP up to 182. The patient's ALLAN and other rheumatologic markers were not elevated. The patient was seen in consultation by Infectious Disease and all infectious studies sent were negative. The patient did possibly have proctitis present on CT and Infectious Disease recommended an empiric complete course of doxycycline, which was completed during her hospitalization. 4. Erythema nodosum. This was present on skin biopsy, most likely secondary to full patient and not actual inflammatory bowel disease. This will most likely resolve without intervention. The patient will follow up with General surgery for suture removal. 5. 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 Review of patient's outside records indicates that she has previously received an extensive obstetrics workup including exploratory laparotomy, which demonstrates no evidence of endometriosis and no cause of her previous abdominal pain symptoms. The patient has a long history of intermittent abdominal pain, occasionally requiring hospitalization a couple times a year. Patient freely endorses that she has had a history of repetitive symptoms, usually lasting approximately 24 hr, and self-resolving. I suspect that the patient experienced an acute worsening of her symptoms triggered by her inflammation and issues outlined above, and now that the inflammation is subsiding, her abdominal symptoms are also abating. I provided her with as needed Dilaudid and Phenergan as these were the primary methods of symptom control during this hospitalization, but I have recommended to the patient that she began cycling in Bentyl as needed for abdominal symptoms as opposed to utilizing opiates. I have discussed this impression with Gastroenterology, and they have recommended that the patient follow up in primary care for chronic management of her symptoms, only to receive GI referral if the patient would feel more comfortable working with Dr. Rachel Philippe who initially saw this patient during her hospitalization. DISCHARGE MEDICATIONS: Please see official discharge medication reconciliation sheet in chart , Dilaudid 2 mg as needed 20 tablets prescribed, Phenergan 25 mg as needed for does describe comma Bentyl 40 tabs prescribed, pantoprazole 40 mg twice daily x6 weeks DISCHARGE INSTRUCTIONS: Please stab wish care with an outpatient primary care provider, contact information provided. TIME SPENT: Greater than 30 minutes were spent on direct patient care, as well as discharge planning and preparation.
== END 2017-10-11 11:02 | disposition home or self-care (01) | DRG 386 ==
LOC: OBSVTOIN 12:26 → F3E 13:14
PROVIDERS: ADMIT Internal Medicine; ATTEND Internal Medicine
PROC: 0DBP8ZX Excision of Rectum, Via Natural or Artificial Opening Endoscopic, Diagnostic (ICD-10-PCS; 2017-10-04)
PROC: 0HBHXZX Excision of Right Upper Leg Skin, External Approach, Diagnostic (ICD-10-PCS; 2017-10-05)
PROC: 02HV33Z Insertion of Infusion Device into Superior Vena Cava, Percutaneous Approach (ICD-10-PCS; 2017-10-06)
PROC: 0DB68ZX Excision of Stomach, Via Natural or Artificial Opening Endoscopic, Diagnostic (ICD-10-PCS; principal; 2017-10-09 11:30)
PROC: 0DBN8ZX Excision of Sigmoid Colon, Via Natural or Artificial Opening Endoscopic, Diagnostic (ICD-10-PCS; principal; 2017-10-09 11:30)
PROC: 0DB98ZX Excision of Duodenum, Via Natural or Artificial Opening Endoscopic, Diagnostic (ICD-10-PCS; principal; 2017-10-09 11:30)
PROC: 0DBH8ZX Excision of Cecum, Via Natural or Artificial Opening Endoscopic, Diagnostic (ICD-10-PCS; principal; 2017-10-09 11:30)
PROC: 0DBP8ZX Excision of Rectum, Via Natural or Artificial Opening Endoscopic, Diagnostic (ICD-10-PCS; principal; 2017-10-09 11:30)
DX: K51.20 Ulcerative (chronic) proctitis without complications (principal); R65.10 Systemic inflammatory response syndrome (SIRS) of non-infectious origin without acute organ dysfunction; K29.50 Unspecified chronic gastritis without bleeding; K25.9 Gastric ulcer, unspecified as acute or chronic, without hemorrhage or perforation; L52 Erythema nodosum; K12.1 Other forms of stomatitis
CPT/HCPCS: 82164-90; 83516-90; 83520-90; 84311-90; 86225-90; 86611-90; 86644-90; 86645-90; 86664-90; 86665-90; 86668-90; 86720-90; 86738-90; 87529-90; 87536-90; 87798-90; 96374; A9585; C1751; G0378; J0694; J0696; J1170; J1610; J1630; J1885; J2060; J2250; J2370; J2405; J2550; J2704; J2800; J3010; Q9967

== ENCOUNTER 2018-05-12 08:35 | Emergency (ER) | payer OTHER ==
[2018-05-12] MEDS ORDERED: PANTOPRAZOLE SODIUM 40 MG VIAL IVP ONE (09:08)
[2018-05-12] MEDS ORDERED: MAG HYDROX/AL HYDROX/SIMETH 30 ML UDCUP PO ONE (09:08)
[2018-05-12] MEDS ORDERED: LIDOCAINE 2% VISCOUS 15 ML UDCUP PO ONE (09:08)
[2018-05-12] MEDS ORDERED: HYOSCYAMINE SULFATE 0.125 MG TAB PO ONE (09:08)
[2018-05-12] MEDS ORDERED: NS 1,000 ML IV ONE (09:08)
[2018-05-12] MEDS ORDERED: PROMETHAZINE HCL 25 MG/ML INJ IVP ONE (09:08)
--- NOTE | 2018-05-12 09:08 | EDPHY ---
H & P Stated Complaint: 3AM gen abd pn, Hx ulcers, no aleviating factors, denies bleeding Source: Patient Exam Limitations: No limitations - Personal History Current Tetanus/Diphtheria Vaccine: Unsure - Medical/Surgical History Hx Asthma: No Hx Chronic Respiratory Disease: No Hx Diabetes: No Hx Cardiac Disease: No Hx Renal Disease: No Hx Cirrhosis: No Hx Alcoholism: No Hx HIV/AIDS: No Hx Splenectomy or Spleen Trauma: No Other PMH: endometriosis, Laproscopic surgery 12/12/2016, wisdom teeth age 18 - Social History Smoking Status: Never smoked Time Seen by Provider: 05/12/18 09:07 HPI/ROS: HPI: This is a 23-year-old female who presents with Chief Complaint: 3AM gen abd pn, Hx ulcers, no alleviating factors, denies bleeding Location: Abdomen Quality: Pain Duration: 6 hr prior to arrival Signs and Symptoms: no fever, + nausea, no vomiting, no hematemesis, no blood in stool, no abdominal bloating, no diarrhea, no back pain, no urinary symptoms , no vaginal bleeding/discharge, no indigestion, no chest pain, no shortness of breath Timing: Acute on chronic Severity: 01/13 Context: Patient has a history functional abdominal pain, gastritis, lower GI ulcers, chronic functional abdominal pain presents with waking up this morning around 3:00 a.m. With generalized abdominal pain that she describes as constant , nonradiating, severe in intensity. She reports nausea but no vomiting, diarrhea, urinary symptoms, fever. Patient reports that she ate a poke able around 10:00 a.m. And went to bed around 11:00 p.m. She was seen in this hospital in October of 2007 and admitted and diagnosed with ulcers. Patient reports that she took the medication that was prescribed but stopped taking them after the 1st 30 days. She is not regularly followed up with Gastroenterology. Patient has a Nexplanon and does not have regular menses. Patient had a bowel movement prior to arrival. Denies regular alcohol or NSAID use. Modifying Factors: None Comment: ROS: A comprehensive 10 system review of systems is otherwise negative aside from elements mentioned in the history of present illness. MEDICAL/SURGICAL/SOCIAL HISTORY: Medical/Surgical history: endometriosis, Laparoscopic surgery 12/12/2016, wisdom teeth age 18. 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 Never smoked. Family history noncontributory. CONSTITUTIONAL: Tearful, nontoxic-appearing, young adult female, awake and alert, no obvious distress HEENT: Atraumatic and normocephalic, PERRL, EOMI. Nares patent; no rhinorrhea; no nasal mucosal edema. Tympanic membranes clear. Oropharynx clear, no exudate and moist pink mucosa. Airway patent. No lymphadenopathy. No meningismus. Cardiovascular: Normal S1/S2, regular rate, regular rhythm, without murmur rub or gallop. PULMONARY/CHEST: Symmetrical and nontender. Clear to auscultation bilaterally. Good air movement. No accessory muscle usage. ABDOMEN: Soft, nondistended, mild generalized tenderness, no rebound, no guarding, no peritoneal signs, no masses or organomegaly. No CVAT. Bowel sounds hypoactive x4 quadrants. EXTREMITIES: 2/2 pulses, strength 5/5, no deformities, no clubbing, no cyanosis or edema. NEUROLOGICAL: no focal neuro deficits. GCS 15. SKIN: Warm and dry, no erythema. no rash. Good capillary refill. (Marilu Benoit) Constitutional: Initial Vital Signs Temperature (C) 36.3 C 05/12/18 08:39 Heart Rate 87 05/12/18 08:39 Respiratory Rate 20 05/12/18 08:39 Blood Pressure 107/66 05/12/18 08:39 O2 Sat (%) 98 05/12/18 08:39 O2 Delivery Mode Room Air Allergies/Adverse Reactions: amoxicillin Allergy (Verified 05/12/18 08:39) Other-Enter Comments Penicillins Allergy (Verified 05/12/18 08:39) Other-Enter Comments Home Medications: Medication Instructions Recorded Etonogestrel [Nexplanon] 68 mg SQ ONCE 12/16/16 Ondansetron HCl [Zofran] 4 mg PO Q4HRS PRN 10/03/17 Acetaminophen [Tylenol 325mg (*)] 650 mg PO Q4HRS PRN tab 10/11/17 Dicyclomine [Bentyl 20 MG (*)] 20 mg PO QID PRN #40 tab 10/11/17 HYDROmorphone HCL [Dilaudid 2 mg 2 mg PO Q6H PRN #20 tab 10/11/17 (*)] Pantoprazole Sodium [Protonix 40mg 40 mg PO BID #60 tab 10/11/17 (*)] Promethazine HCl [Phenergan 25mg 12.5 - 25 mg PO Q6HRS PRN #40 tab 10/11/17 (*)] Promethazine HCl [Phenergan 25mg 25 mg PO Q4-6PRN PRN #10 tab 03/27/18 (*)] Dicyclomine [Bentyl 10 MG (*)] 10 mg PO QID PRN #12 cap 05/12/18 Ondansetron Odt [Zofran Odt 4 mg 4 mg PO Q4 PRN #12 tab 05/12/18 (*)] Pantoprazole Sodium [Protonix 40mg 40 mg PO DAILY #30 tab 05/12/18 (*)] Medical Decision Making ED Course/Re-evaluation: Vital signs reviewed and stable upon arrival. No systemic signs. IV access, laboratory studies, urinalysis ordered Given 1 L normal saline, GI cocktail, IV Protonix 40 mg, IV ketamine 10 mg 0958: Notified by RN that patient is now sleeping. 1020: Urinalysis shows trace ketones but no signs of infection. 1029: Labs reviewed. No signs of leukocytosis/anemia/platelet dysfunction/JAIRO/ elevated LFTs/electrolyte imbalance/pancreatitis. 1047: Called by Dr. Malloy, who advised that CT abdomen and pelvis scan shows no acute appendicitis, obstruction, diverticulitis. Does show thickening of the sigmoid colon to the rectum which is comparable to the last CT scan in October. Chart review shows the MRI enterography was negative for inflammatory bowel disease in October. 1100: Reassessed patient who reports relief of abdominal pain. Offered patient admission and she politely declined as she feels better. Drinking fluids without difficulty. Will give her prescription for Bentyl and Protonix with gastroenterology follow-up This patient was seen under the supervision of my secondary supervising physician. I evaluated care for this patient independently. (Marilu Benoit) Differential Diagnosis: Abdominal pain including but not limited to appendicitis, cholecystitis, gastritis and urinary tract infection. (Marilu Benoit) Other Provider: The patient was evaluated and managed by the Physician Home Health Care Coordinator. My co- signature indicates that I have reviewed this chart and I agree with the findings and plan of care as documented. I am the secondary supervising physician. (Kaylah Wilkes) - Data Points Laboratory Results: Laboratory Results 05/12/18 09:35 05/12/18 09:35 Medications Given: Discontinued Medications Al Hydroxide/Mg Hydroxide (Maalox Susp) 30 ml PO ONCE ONE Stop: 05/12/18 09:09 Last Admin: 05/12/18 09:30 Dose: 30 ml Hyoscyamine Sulfate (Levsin, Hyomax-Sl) 0.25 mg PO ONCE ONE Stop: 05/12/18 09:09 Last Admin: 05/12/18 09:29 Dose: 0.25 mg Sodium Chloride (Ns) 1,000 mls @ 0 mls/hr IV EDNOW ONE; Wide Open PRN Reason: Protocol Stop: 05/12/18 09:09 Last Admin: 05/12/18 09:30 Dose: 1,000 mls Ketamine HCl (Ketamine) 10 mg IVP EDNOW ONE Stop: 05/12/18 09:29 Last Admin: 05/12/18 09:50 Dose: 10 mg Lidocaine (Lidocaine 2% Viscous) 15 ml PO ONCE ONE Stop: 05/12/18 09:09 Last Admin: 05/12/18 09:30 Dose: 15 ml Pantoprazole Sodium (Protonix) 40 mg IVP EDNOW ONE Stop: 05/12/18 09:09 Last Admin: 05/12/18 09:30 Dose: 40 mg Promethazine HCl (Phenergan) 12.5 mg IVP EDNOW ONE Stop: 05/12/18 09:09 Last Admin: 05/12/18 09:27 Dose: 12.5 mg Departure - Departure Disposition: Home, Routine, Self-Care Clinical Impression: Gastritis without bleeding, Personal history of gastric ulcer Condition: Good Instructions: Gastritis (ED), Diet for Stomach Ulcers and Gastritis (ED) Additional Instructions: Consume a minimum of 8-10 glasses of water or electrolyte fluid replacement drinks that include Gatorade, Powerade, Pedialyte. Eat a bland diet for the next 48 hours and then slowly advance as tolerated. Take Zofran 1 tab every 4 hours as needed for nausea, vomiting. Take Protonix daily. Please follow gastric ulcer/gastritis diet. Avoid alcohol, spicy/fried foods, large meals, NSAIDs that include ibuprofen, Motrin, Advil. Take Bentyl 4 times a day as needed for GI distress. Follow-up with Gastroenterology in the next 2-3 days. Return to the Emergency Room if symptoms do not resolve in the next 48-72 hours , you spike a fever > 102 F, or experience intractable abdominal pain/nausea/ vomiting. Referrals: Joseph Perez MD [Medical Doctor] - As per Instructions Stand Alone Forms: School Excuse Prescriptions: Dicyclomine [Bentyl 10 MG (*)] 10 mg PO QID PRN #12 cap PRN Reason: Gi Distress Ondansetron Odt [Zofran Odt 4 mg (*)] 4 mg PO Q4 PRN #12 tab PRN Reason: Nausea/Vomiting, Use 1st Pantoprazole Sodium [Protonix 40mg (*)] 40 mg PO DAILY #30 tab
[2018-05-12] MEDS ORDERED: KETAMINE 200 MG/20 ML VIAL IVP ONE (09:28)
[2018-05-12] MEDS ORDERED: IOPAMIDOL (ISOVUE-300) 100 ML BTL ONE (09:40)
[2018-05-12 09:49] LABS: PLATELET COUNT 290 10^3/uL (150-400)
[2018-05-12 11:09] VITALS: BP 110/63
== END 2018-05-12 11:09 | disposition home or self-care (01) ==
DX: K29.70 Gastritis, unspecified, without bleeding (principal); K25.9 Gastric ulcer, unspecified as acute or chronic, without hemorrhage or perforation; E86.9 Volume depletion, unspecified
CPT/HCPCS: 96374; J2550; Q9967

== ENCOUNTER → 2018-09-30 | Outpatient (CLI) | payer OTHER | LOC: BMCIMAGING 15:32 ==